=== PATIENT | female | born 1950 | race Caucasian/White ===

== ENCOUNTER → 2018-10-06 07:38 | Outpatient (CLI) | payer MEDICARE, SELFPAY ==
--- NOTE | 2018-10-06 11:02 | NEURO ---
NCS and/or EMG Patient Report Ordering Doctor: Oral Hernandez DATE OF SERVICE: 10/06/18 This is a bilateral lower extremity nerve conduction study and a right lower extremity EMG performed on this 68-year-old female with a 10-year history of numbness and tingling in her feet. She was initially diagnosed with a neuroma 10 years ago however symptoms have progressed to include her lower legs somewhat more so on the right side. She is healthy without a history of diabetes or back pain. She consumes alcohol occasionally. Bilateral lower extremity sensory motor nerve conduction studies are performed. The sural sensory distal latencies amplitudes and conduction velocities are preserved. The common peroneal motor conduction velocities are symmetrically slowed with mild prolongation of latencies and mild reduction of amplitudes. The tibial motor conduction velocities are borderline with mild reduction of amplitude and mild prolongation of distal latencies. The tibial motor and common peroneal motor F-wave latencies are mildly prolonged in the tibial H reflex responses are mildly reduced. Right lower extremity needle electromyography is performed. Muscles evaluated included the extensor digitorum brevis, abductor hallucis, medial gastrocnemius, anterior tibialis, vastus medialis and vastus lateralis muscles. Distal small muscles of the feet did demonstrate large motor units, these abnormalities resolved more proximally consistent with a length dependent pattern. No abnormal spontaneous activity was noted. Motor unit potential recruitment pattern and amplitude was otherwise normal. Impression this is an abnormal electrophysiologic study of the lower extremities consistent with mild neuropathy likely idiopathic in this setting.
--- OUTSIDE RECORDS SUMMARY | 2018-11-17 20:17 | XMS RPT_ITS ---
:1950 Author Organization OHIP Care Team Providers Name Role Phone NATHAN ALVAREZ Referring Unavailable NATHAN ALVAREZ Referring Unavailable PAMELA BLANCA (PA) Attending Unavailable NATHAN ALVAREZ Referring Unavailable CECILE LANDIS Referring Unavailable PAMELA BLANCA (PA) Referring Unavailable HASAN, CECILE Attending Unavailable HASANYAMILA Referring Unavailable HASAN CECILE Referring Unavailable SOCORRO GARLAND Referring Unavailable SOCORRO GARLAND Attending Unavailable IVETH RAMIREZ Referring Unavailable TESTRAIVETH ALAVREZ Attending Unavailable MARLENI ARCE (CHE[place]EN[place]) Referring Unavailable TESTIVETH MACIAS Attending Unavailable IVETH RAMIREZ Referring Unavailable PAMELA BLANCA (PA) Referring Unavailable PAMELA BLANCA (PA) Attending Unavailable PAMELA BLANCA (PA) Referring Unavailable TESTIVETH MACIAS Attending Unavailable TESTIVETH MACIAS Referring Unavailable TestIveth macias Attending Unavailable Nathan Alvarez Primary Care Unavailable TestIveth macias Referring Unavailable PROBLEMS PROBLEMS DATE TYPE CONDITION / CODE ATTENDING STATUS SOURCE 04/21/2017 Active Hypercalcemia / NA Active [facility] E83.52(ICD-10) [facility] [place] Repository 09/21/2018 Active 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 / [facility] Z79.899(ICD-10) [place] Repository 08/13/2018 Active Cellulitis of left toe / NA Active [facility] L03.032(ICD-10) [facility] [place] Repository 08/13/2018 Active Cutaneous abscess of NA Active [place] left foot / [facility] L02.612(ICD-10) [place] Repository 07/06/2018 Active Encounter for screening NA Active [facility] mammogram for malignant [facility] neoplasm of breast / [place] Z12.31(ICD-10) Repository 10/22/2017 Active Hyperparathyroidism, NA Active [place] unspecified / [facility] E21.3(ICD-10) [place] Repository 05/04/2018 Active Primary NA Active [facility] hyperparathyroidism / [facility] E21.0(ICD-10) [place] Repository 04/23/2018 Active Unknown / UNK(Unknown) BLANCA, Active [place] PAMELA (PA) [facility] [place] Repository 04/10/2016 Active Chronic gout, NA Active [facility] unspecified, without [facility] tophus (tophi) / [place] M1A.9XX0(ICD-10) Repository 04/10/2016 Active Mixed hyperlipidemia / NA Active [facility] E78.2(ICD-10) [facility] [place] Repository 04/10/2016 Active Essential (primary) NA Active [facility] hypertension / [facility] I10(ICD-10) [place] Repository 04/21/2015 Active Encounter for screening [facility] for malignant neoplasm Clinic Main of colon / [place] Z12.11(ICD-10) Repository PROCEDURES PROCEDURES No Procedure Records FoundRESULTS RESULTS PROGRESS Observed: 10/15/2018 Status: COMPLETED Source: [place] 8:10 PM [facility] REPOSITORY HNO ID: [id number] Author: Iveth Ramirez Service: (none) Author Type: Physician Type: Progress Notes Filed: 10/15/2018 8:15 PM Note Text: Follow up podiatric office visit for: Chief Complaint: This 68 year old who presents for follow up:numbness of b/l lower extremity. Patient continues to complain of numbness but denies pain. She has emg to review. She does have discoloration of left 3rd toenail but there is no pain. Patient has no other complaints. PAIN EVALUATION 10/15/2018 Pain Score: 3 Pain Location: Other: See Comment both feet Description: Tingling;Numbness Duration Amount of Time: 1 Duration Units: Years Frequency: Continuous Intervention: Other: See comment none No results found for: HBA1C PCP: Nathan Alvarez MD PAST MEDICAL HISTORY Diagnosis Date - Eczema 10/28/2014 - Endometrial cancer (HCC) 02/20/2010 Dx 2006 - Gout hx of - Hyperlipidaemia 04/21/2015 - Hypertension 05/22/2005 - Hypothyroidism - Obesity, unspecified 05/22/2005 - Rosacea 05/17/2010 Current Outpatient Prescriptions: lisinopril (ZESTRIL, PRINIVIL) 20 mg tablet Take 1 tablet by mouth once daily. allopurinol (ZYLOPRIM) 300 mg tablet Take 1 tablet by mouth once daily. ranitidine (ZANTAC) 150 mg tablet Take 1 tablet by mouth twice daily. omega-3 fatty acids 1,000 mg cap Take 2 capsules by mouth twice daily. ketoconazole (NIZORAL) 2 % shampoo Apply to affected area once daily as needed. Azelaic Acid (FINACEA) 15 % gel Apply to affected area. hydrocortisone 2.5 % cream Apply 1 application to affected area twice daily. Apply to areas weekly as needed. mometasone (ELOCON) 0.1 % cream Apply to areas twice a day. On for 4 days and off for 3 days. Repeat as needed. Calcium Carbonate-Mag Hydroxid (ROLAIDS) 550-110 mg Chew Take 1 tablet by mouth as needed. Multivitamin ORAL Tab Take one(1) tablet daily. Calcium Carbonate-Vitamin D2 (CALCIUM + D) 600-200 mg-unit ORAL Tab taking 5 per week acetaminophen (TYLENOL EXTRA STRENGTH) 500 mg ORAL Tab Take two(2) tablets every six(6) hours as needed for pain. No current facility-administered medications for this visit. ALLERGIES Allergen Reactions - Flagyl [Metronidazo* Rash Pt tolerates topical. Refer to phone note on 03-12-07. PAST SURGICAL HISTORY Procedure Laterality Date - APPENDECTOMY AGE 6 - DELIVERY ONLY 1982, 1984 , low transverse x 2 - COLONOSCOP W/ OR W/O [facility] SPEC 12/01/2009 Colonoscopy, recheck 10 yrs - PAST SURGICAL HISTORY OF * 2 - TOTAL ABDOM HYSTERECTOMY 2006 BSO - US PERC CHOLECYSTOSTOMY 1995 Physical Exam: Constitutional: Pt is a well developed 68 year old female who is alert, oriented, cooperative and in no apparent distress. OBJECTIVE: NVSI unchanged from previous visit. -tinel to b/l feet Dermatological: Left 3rd toenail is discolored. Webspaces clean and dry 1-4 b/l. Skin appears well hydrated and supple. good color, texture, turgor. No open lesions present. No callosities present. Musculoskeletal/Orthopaedic: Patient has no pain to palpation of b/l feet Plantarflexion, dorsiflexion, inversion and eversion is 5/5 ASSESSMENT: (R20.0) Numbness (primary encounter diagnosis) (G62.9) Neuropathy ([facility]) (B35.1) Onychomycosis PLAN: 1. History and physical examination completed today. 2. Discussed emg. Patient has neuropathy of idiopathic etiology. She has no pain. Discussed options not limited to topical creams, oral medication, or surgical decompression of nerves. Patient has no pain so she has elected to monitor. If pain develops, she will contact to discuss options in greater detail. 3. Discussed discoloration of left 3rd toenail. This is only a few months onset. Discussed monitoring vs biopsy. Patient has elected to monitor. 4. F/u prn. Iveth Ramirez DPM PROGRESS Observed: 10/15/2018 Status: COMPLETED Source: [place] 2:57 PM [facility] REPOSITORY HNO ID: [id number] Author: Jonna Santiago Service: (none) Author Type: (none) Type: Progress Notes Filed: 10/15/2018 8:15 PM Note Text: AMB ROOMING INTAKE FLOWSHEET DATA Risk Screening Do you have concerns about personal safety or safety in the home?: No Pain Pain Score: 3/10 Pain Location: Other: See Comment (both feet) Description: Tingling, Numbness Duration Amount of Time: 1 Duration Units: Years Frequency: Continuous Intervention: Other: See comment (none) Patient presents to discuss options for neuropathy. Jonna Santiago CNOV Observed: 10/15/2018 Status: COMPLETED Source: [place] 2:55 PM [facility] REPOSITORY Office Visit (PODIWS) MARNI ACOSTA ([id number]) 1950 F Date Time Provider Department 10/15/18 2:55 PM IVETH RAMIREZ During your visit today, we recorded the following information about you: Jonna Santiago 10/15/2018 8:15 PM Signed AMB ROOMING INTAKE FLOWSHEET DATA Risk Screening Do you have concerns about personal safety or safety in the home?: No Pain Pain Score: 3/10 Pain Location: Other: See Comment (both feet) Description: Tingling, Numbness Duration Amount of Time: 1 Duration Units: Years Frequency: Continuous Intervention: Other: See comment (none) Patient presents to discuss options for neuropathy. Jonna Ramirez DPM 10/15/2018 8:15 PM Signed Follow up podiatric office visit for: Chief Complaint: This 68 year old who presents for follow up:numbness of b/l lower extremity. Patient continues to complain of numbness but denies pain. She has emg to review. She does have discoloration of left 3rd toenail but there is no pain. Patient has no other complaints. PAIN EVALUATION 10/15/2018 Pain Score: 3 Pain Location: Other: See Comment both feet Description: Tingling;Numbness Duration Amount of Time: 1 Duration Units: Years Frequency: Continuous Intervention: Other: See comment none No results found for: HBA1C PCP: Nathan Alvarez MD PAST MEDICAL HISTORY Diagnosis Date - Eczema 10/28/2014 - Endometrial cancer (HCC) 02/20/2010 Dx 2006 - Gout hx of - Hyperlipidaemia 04/21/2015 - Hypertension 05/22/2005 - Hypothyroidism - Obesity, unspecified 05/22/2005 - Rosacea 05/17/2010 Current Outpatient Prescriptions: lisinopril (ZESTRIL, PRINIVIL) 20 mg tablet Take 1 tablet by mouth once daily. allopurinol (ZYLOPRIM) 300 mg tablet Take 1 tablet by mouth once daily. ranitidine (ZANTAC) 150 mg tablet Take 1 tablet by mouth twice daily. omega-3 fatty acids 1,000 mg cap Take 2 capsules by mouth twice daily. ketoconazole (NIZORAL) 2 % shampoo Apply to affected area once daily as needed. Azelaic Acid (FINACEA) 15 % gel Apply to affected area. hydrocortisone 2.5 % cream Apply 1 application to affected area twice daily. Apply to areas weekly as needed. mometasone (ELOCON) 0.1 % cream Apply to areas twice a day. On for 4 days and off for 3 days. Repeat as needed. Calcium Carbonate-Mag Hydroxid (ROLAIDS) 550-110 mg Chew Take 1 tablet by mouth as needed. Multivitamin ORAL Tab Take one(1) tablet daily. Calcium Carbonate-Vitamin D2 (CALCIUM + D) 600-200 mg-unit ORAL Tab taking 5 per week acetaminophen (TYLENOL EXTRA STRENGTH) 500 mg ORAL Tab Take two(2) tablets every six(6) hours as needed for pain. No current facility-administered medications for this visit. ALLERGIES Allergen Reactions - Flagyl [Metronidazo* Rash Pt tolerates topical. Refer to phone note on 03-12-07. PAST SURGICAL HISTORY Procedure Laterality Date - APPENDECTOMY AGE 6 - DELIVERY ONLY 1982, 1984 , low transverse x 2 - COLONOSCOP W/ OR W/O [facility] SPEC 12/01/2009 Colonoscopy, recheck 10 yrs - PAST SURGICAL HISTORY OF * 2 - TOTAL ABDOM HYSTERECTOMY 2006 BSO - US PERC CHOLECYSTOSTOMY 1995 Physical Exam: Constitutional: Pt is a well developed 68 year old female who is alert, oriented, cooperative and in no apparent distress. OBJECTIVE: NVSI unchanged from previous visit. -tinel to b/l feet Dermatological: Left 3rd toenail is discolored. Webspaces clean and dry 1-4 b/l. Skin appears well hydrated and supple. good color, texture, turgor. No open lesions present. No callosities present. Musculoskeletal/Orthopaedic: Patient has no pain to palpation of b/l feet Plantarflexion, dorsiflexion, inversion and eversion is 5/5 ASSESSMENT: (R20.0) Numbness (primary encounter diagnosis) (G62.9) Neuropathy ([facility]) (B35.1) Onychomycosis PLAN: 1. History and physical examination completed today. 2. Discussed emg. Patient has neuropathy of idiopathic etiology. She has no pain. Discussed options not limited to topical creams, oral medication, or surgical decompression of nerves. Patient has no pain so she has elected to monitor. If pain develops, she will contact to discuss options in greater detail. 3. Discussed discoloration of left 3rd toenail. This is only a few months onset. Discussed monitoring vs biopsy. Patient has elected to monitor. 4. F/u prn. Iveth Ramirez DPM Referring Provider: IVETH RAMIREZ [[id number]] Allergies As of Date: 10/15/2018 Noted Allergy Reaction FLAGYL (METRONIDAZOLE HCL) 05/22/2005 2 - Rash Comments: Pt tolerates topical. Refer to phone note on 03-12-07. Date Reviewed: 10/15/2018 Reviewed by: Jonna Santiago - Fully Assessed Reason for Visit: Neuropathy [1405] Cmt: both feet Primary Visit Diagnosis:Numbness [R20.0] Other Visit Diagnoses:Neuropathy (HCC) [G62.9] Onychomycosis [B35.1] Prescriptions as of 10/15/2018 Sig: LISINOPRIL 20 MG TABLET Take 1 tablet by mouth once d* ALLOPURINOL 300 MG TABLET Take 1 tablet by mouth once d* RANITIDINE 150 MG TABLET Take 1 tablet by mouth twice * OMEGA-3 FATTY ACIDS 1,000 MG * Take 2 capsules by mouth twic* KETOCONAZOLE 2 % SHAMPOO Apply to affected area once * AZELAIC ACID 15 % TOPICAL GEL Apply to affected area. HYDROCORTISONE 2.5 % TOPICAL * Apply 1 application to affect* MOMETASONE 0.1 % TOPICAL CREAM Apply to areas twice a day. * CALCIUM CARBONATE 550 MG-MAGN* Take 1 tablet by mouth as nee* * MULTIVITAMIN TABLET Take one(1) tablet daily. * CALCIUM + D 600 MG (1,500 MG)* taking 5 per week * TYLENOL EXTRA STRENGTH 500 MG* Take two(2) tablets every six* Problem List As Of Date 10/15/2018 Noted Resolved Malignant Neoplasm of Corpus Uteri, except Isth* 02/20/2010 More... History of endometrial cancer [Z85.42] INVALID FOR* More... Rosacea [L71.9] INVALID FOR* Well adult exam [Z00.00] INVALID FOR* More... Eczema [L30.9] INVALID FOR* Routine gynecological examination [Z01.419] INVALID FOR* More... 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 Hypercalcemia [E83.52] INVALID FOR* Osteopenia [M85.80] INVALID FOR* Medicare annual wellness visit, subsequent [Z00*INVALID FOR* More... Class 2 obesity due to excess calories without *INVALID FOR* Arthritis of both knees [M17.0] INVALID FOR* More... Encounter Status:Closed by IVETH RAMIREZ DPM on 10/15/18 NCS AND/OR EMG Observed: 10/07/2018 Status: F Source: [place] PATIENT 4:38 PM [facility] [facility] Pulmonary Services/Neurology [address] [place] [address] MR#: [id number] Acct: [id number] Name: MARNI ACOSTA Rep #: [id number] : 1950 68 From: Porfirio Newberry MD Referring Dr: KAREEN Ramirez Matthew Status: REG CLI Ordering Dr: Date: Location: [facility] Sex: F C NCS and/or EMG Patient Report Ordering Doctor: Iveth Ramirez DATE OF SERVICE: 10/06/18 This is a bilateral lower extremity nerve conduction study and a right lower extremity EMG performed on this 68-year-old female with a 10-year history of numbness and tingling in her feet. She was initially diagnosed with a neuroma 10 years ago however symptoms have progressed to include her lower legs somewhat more so on the right side. She is healthy without a history of diabetes or back pain. She consumes alcohol occasionally. Bilateral lower extremity sensory motor nerve conduction studies are performed. The sural sensory distal latencies amplitudes and conduction velocities are preserved. The common peroneal motor conduction velocities are symmetrically slowed with mild prolongation of latencies and mild reduction of amplitudes. The tibial motor conduction velocities are borderline with mild reduction of amplitude and mild prolongation of distal latencies. The tibial motor and common peroneal motor F-wave latencies are mildly prolonged in the tibial H reflex responses are mildly reduced. Right lower extremity needle electromyography is performed. Muscles evaluated included the extensor digitorum brevis, abductor hallucis, medial gastrocnemius, anterior tibialis, vastus medialis and vastus lateralis muscles. Distal small muscles of the feet did demonstrate large motor units, these abnormalities resolved more proximally consistent with a length dependent pattern. No abnormal spontaneous activity was noted. Motor unit potential recruitment pattern and amplitude was otherwise normal. Impression this is an abnormal electrophysiologic study of the lower extremities consistent with mild neuropathy likely idiopathic in this setting. 10/07/18 0623 <Electronically signed by Porfirio Newberry MD> Date Porfirio Newberry MD CC: KAREEN Ramirez; Nathan Alvarez MD; Porfirio Newberry MD Date Dictated: 10/06/181101 Date Transcribed: 10/06/181101 Statement Processor: NF Signed PROGRESS Observed: 09/24/2018 Status: COMPLETED Source: [place] 10:30 AM [facility] MAIN CAMPUS REPOSITORY O ID: [id number] Author: Shy Blanca Service: (none) Author Type: Physician Supervisor Word Processing Type: Progress Notes Filed: 09/24/2018 11:32 AM Note Text: Medicare Yearly Visit Medical B eligibilty date 07/11/15 Date of last exam na PAST MEDICAL HISTORY Diagnosis Date - Eczema 10/28/2014 - Endometrial cancer (HCC) 02/20/2010 Dx 2006 - Gout hx of - Hyperlipidaemia 04/21/2015 - Hypertension 05/22/2005 - Hypothyroidism - Obesity, unspecified 05/22/2005 - Rosacea 05/17/2010 PAST SURGICAL HISTORY Procedure Laterality Date - APPENDECTOMY AGE 6 - DELIVERY ONLY 1982, 1984 , low transverse x 2 - COLONOSCOP W/ OR W/O [facility] SPEC 12/01/2009 Colonoscopy, recheck 10 yrs - PAST SURGICAL HISTORY OF * 2 - TOTAL ABDOM HYSTERECTOMY 2006 BSO - US PERC CHOLECYSTOSTOMY 1995 Flagyl [Metronidazole Hcl] Medications reviewed: Yes FAMILY HISTORY Problem Relation Age of Onset - Diabetes Mother - other (dementia) Mother - Heart Father - Ischemic Heart Disease Father - Cancer Paternal Grandmother BREAST - Heart Paternal Grandfather PACEMAKER SOCIAL HISTORY: Social History Marital status: Spouse name: Cheng Years of education: Number of children: 2 Occupational History Occupation Employer Comment [employer] Social History Main Topics Smoking status: Former Smoker Packs/day: 0.00 Years: 0.00 Smokeless tobacco: Never Used Comment: quit 30 years ago Alcohol use: Yes 1.5 oz/week Glasses of Wine (5oz): 1 per week Comment: 2-3 times a week Drug use: No Sexual activity: Yes Partners with: Male Marni gets minimal exercise. She watches her diet for sodium, low fat and low cholesterol some of the time. List of current specialists seen: Dr. David Watts- Derm Eye doctor- INTERNET ASSESSOR- Dr. Cristina Landis- Endocrinology End of Live Planning discussed including patients advanced directive wishes: Yes I am willing to follow Marni's advanced directives. Depression screen She in the past two weeks denies having felt down, depressed, hopeless or with little interest or pleasure in doing things. Functional Ability/Safety Screen 1. Was the patient's timed Up and Go test unsteady or longer than 30 seconds? No 2. Does the patient need help with the phone, transportation, shopping,preparing meals, housework, laundry, medications or managing money? No 3. Does your home have rugs in the hallway, lack of grab bars in the bathroom (Y), lack of handrails on the stairs or have poor lighting? No Hearing Evaluation: normal PHYSICAL EXAM BP 142/82 (BP Site: Left Arm, BP Position: Sitting, BP Cuff Size: Large Adult) Pulse 76 Resp 12 Ht 164.4 cm (5' 4.74) Wt 95.3 kg (210 lb) LMP 06/02/2006 BMI 35.23 kg/m? Alert and oriented X 3: YES Body mass index is 35.23 kg/m?. ASSESSMENT/PLAN: 68 year old female The following prevention plan was discussed during the office visit and provided to the patient: - Weight Loss PAMELA BLANCA PA-C Chief Complaint Patient presents with: Physical HPI Marni Acosta is a 68 year old female who presents here today for extensive exam. Patient overall is doing well Hx of HTN and high cholesterol- see labs below She has not been doing as well with watching her cholesterol in her diet. She has not been exercising. R upper arm pain that comes and goes dorothy with certain movements since doing yardwork a few months ago. Denies n/t or significant weakness Past medical history, appointments, medications, allergies reviewed. Previous Medical History PAST MEDICAL HISTORY Diagnosis Date - Eczema 10/28/2014 - Endometrial cancer (HCC) 02/20/2010 Dx 2006 - Gout hx of - Hyperlipidaemia 04/21/2015 - Hypertension 05/22/2005 - Hypothyroidism - Obesity, unspecified 05/22/2005 - Rosacea 05/17/2010 Previous Surgical History PAST SURGICAL HISTORY Procedure Laterality Date - APPENDECTOMY AGE 6 - DELIVERY ONLY 1982, 1984 , low transverse x 2 - COLONOSCOP W/ OR W/O [facility] SPEC 12/01/2009 Colonoscopy, recheck 10 yrs - PAST SURGICAL HISTORY OF * 2 - TOTAL ABDOM HYSTERECTOMY 2006 BSO - US PERC CHOLECYSTOSTOMY 1995 Family History FAMILY HISTORY Problem Relation Age of Onset - Diabetes Mother - other (dementia) Mother - Heart Father - Ischemic Heart Disease Father - Cancer Paternal Grandmother BREAST - Heart Paternal Grandfather PACEMAKER Patient Allergies ALLERGIES Allergen Reactions - Flagyl [Metronidazo* Rash Pt tolerates topical. Refer to phone note on 03-12-07. Current Medications Current Outpatient Prescriptions on File Prior to Visit: lisinopril (ZESTRIL, PRINIVIL) 20 mg tablet Take 1 tablet by mouth once daily. allopurinol (ZYLOPRIM) 300 mg tablet Take 1 tablet by mouth once daily. ranitidine (ZANTAC) 150 mg tablet Take 1 tablet by mouth twice daily. omega-3 fatty acids 1,000 mg cap Take 2 capsules by mouth twice daily. ketoconazole (NIZORAL) 2 % shampoo Apply to affected area once daily as needed. Azelaic Acid (FINACEA) 15 % gel Apply to affected area. hydrocortisone 2.5 % cream Apply 1 application to affected area twice daily. Apply to areas weekly as needed. Calcium Carbonate-Mag Hydroxid (ROLAIDS) 550-110 mg Chew Take 1 tablet by mouth as needed. Multivitamin ORAL Tab Take one(1) tablet daily. Calcium Carbonate-Vitamin D2 (CALCIUM + D) 600-200 mg-unit ORAL Tab taking 5 per week acetaminophen (TYLENOL EXTRA STRENGTH) 500 mg ORAL Tab Take two(2) tablets every six(6) hours as needed for pain. mometasone (ELOCON) 0.1 % cream Apply to areas twice a day. On for 4 days and off for 3 days. Repeat as needed. No current facility-administered medications on file prior to visit. Social History Social History Marital status: Spouse name: Cheng Years of education: Number of children: 2 Occupational History Occupation Employer Comment [employer]* [employer] Social History Main Topics Smoking status: Former Smoker Packs/day: 0.00 Years: 0.00 Smokeless tobacco: Never Used Comment: quit 30 years ago Alcohol use: Yes 1.5 oz/week Glasses of Wine (5oz): 1 per week Comment: 2-3 times a week Drug use: No Sexual activity: Yes Partners with: Male Review of Symptoms REVIEW OF SYSTEMS GENERAL: No weight loss, malaise or fevers HEENT: Negative for frequent or significant headaches, No changes in hearing or vision, no nose bleeds or other nasal problems NECK: Negative for lumps, goiter, pain and significant neck swelling RESPIRATORY: Negative for cough, hemoptysis, wheezing, COPD, dyspnea or shortness of breath CARDIOVASCULAR: Negative for chest pain, leg swelling, hypertension, CHF or palpitations GI: No nausea, vomiting, or diarrhea : No history of dysuria, frequency or incontinence MUSCULOSKELETAL: + R arm pain with certain movements. Negative for joint pain or swelling, back pain or muscle pain SKIN: Negative for lesions, rash, and itching PSYCH: Negative for sleep disturbance, mood disorder and recent psychosocial stressors HEMATOLOGY/LYMPHOLOGY: Negative for prolonged bleeding, bruising easily or swollen nodes ENDOCRINE: Negative for cold or heat intolerance, polyuria, polydipsia and goiter NEURO: No history of headaches, syncope, paralysis, seizures or tremors EXAM: BP 142/82 (BP Site: Left Arm, BP Position: Sitting, BP Cuff Size: Large Adult) Pulse 76 Resp 12 Ht 164.4 cm (5' 4.74) Wt 95.3 kg (210 lb) LMP 06/02/2006 BMI 35.23 kg/m? BP 128/74 Pulse 70 Resp 12 Ht 164.4 cm (5' 4.74) Wt 95.3 kg (210 lb) LMP 06/02/2006 BMI 35.23 kg/m? Last 4 Encounter BP Readings: Date: BP: 09/24/2018 142/82 08/13/2018 136/84 08/05/2018 152/80 06/01/2018 134/86 Last 4 Encounter Wt Readings: Date: Wt: 09/24/2018 95.3 kg (210 lb) 08/13/2018 94.8 kg (209 lb) 08/05/2018 95.7 kg (211 lb) 06/01/2018 96.6 kg (213 lb) General Appearance: Well appearing, alert, in no acute distress, well-hydrated, well nourished.. Skin: Not examined, saw Derm yesterday for skin check. Head: Normocephalic, no masses, lesions, tenderness or abnormalities. Eyes: Anicteric sclera. Pupils are equally round and reactive to light. Extraocular movements are intact. . Ears: External ears normal, canals clear. Nose/Sinuses: Nares normal, septum midline, mucosa normal, no drainage or sinus tenderness. Oropharynx: Lips, mucosa, and tongue normal, teeth and gums normal, oropharynx normal. Neck: Supple, no adenopathy; thyroid symmetric, normal size, no bruits. Lungs: lungs clear to auscultation. No wheezing, rhonchi, rales. Heart: RRR without murmur, gallop, or rubs. No ectopy. Abdomen: Normal abdominal exam, Abdomen soft, non-tender. Bowel sounds normal. No masses, organomegaly. Extremities: No deformities, edema, skin discoloration, clubbing or cyanosis. Good capillary refill. . Musculoskeletal: No joint swelling, deformity, or tenderness. R shoulder exam wnl. NVI Peripheral Pulses: Normal. Neurologic: Gait normal. Reflexes normal and symmetric. Sensation grossly intact.. Health Maintenance List BP CONTROLLED (<130/80) due on 1968 ANNUAL PCP TEAM CHRONIC DISEASE VISIT due on 04/23/2019 MAMMOGRAM due on 07/06/2019 COLORECTAL CANCER SCREENING,SEE MODIFIER due on 12/01/2019 DTAP,TDAP,TD(2 - Td) due on 05/17/2020 PAP EVERY 3 YEARS (65-80 YEARS OLD) due on 08/05/2021 DIABETES SCREEN due on 09/21/2021 LIPID SCREEN due on 09/21/2023 BONE DENSITY Completed ADULT PREVNAR-13 Completed INFLUENZA Completed HEPATITIS C SCREENING Completed PNEUMOVAX AGE 65 AND OVER WITH 5YR LOOKBACK Completed Data reviewed Component Latest Ref Rng AND Units 09/21/2018 Protein, Total 6.3 - 8.0 g/dL 7.7 Albumin 3.9 - 4.9 g/dL 4.6 Calcium 8.5 - 10.2 mg/dL 11.2 (H) Bilirubin, Total 0.2 - 1.3 mg/dL 0.4 Alkaline Phosphatase 34 - 123 U/L 121 AST 13 - 35 U/L 27 Glucose 74 - 99 mg/dL 97 BUN 7 - 21 mg/dL 17 Creatinine 0.58 - 0.96 mg/dL 0.97 (H) Sodium 136 - 144 mmol/L 138 Potassium 3.7 - 5.1 mmol/L 4.6 Chloride 97 - 105 mmol/L 99 CO2 22 - 30 mmol/L 24 Anion Gap 9 - 18 mmol/L 15 ALT 7 - 38 U/L 25 eGFR- >60 eGFR-All Other Races . 57 Color Yellow Yellow Clarity Clear Clear Glucose, Urine Negative mg/dL Negative Bilirubin, Urine Negative Negative Ketones, Urine Negative Negative Specific [place], Ur 1.005 - 1.030 1.014 Hemoglobin/Blood,Ur Negative Negative pH, Urine 4.5 - 8.0 6.0 Protein, Urine Negative mg/dL 30 (A) Urobilinogen Normal Normal Nitrites Negative Negative Leukest Negative Negative Comments SEE COMMENT Urine Michael Comment SEE COMMENT WBC, Urine 0 - 5 /HPF 0-5 RBC, Urine 0 - 3 /HPF 0-3 Epithelial Cells /HPF SEE COMMENT Cholesterol, Total <200 mg/dL 246 (H) Triglyceride <150 mg/dL 153 (H) HDL Cholesterol >39 mg/dL 78 LDL Cholesterol <100 mg/dL 137 (H) Non HDL Cholesterol <130 mg/dL 168 (H) Fasting Time hrs 13 VLDL Cholesterol <30 mg/dL 31 (H) TC:HDL Ratio <5.10 3.15 LDL:HDL Ratio <2.54 1.76 TSH 0.400 - 5.500 uU/mL 1.970 ASSESSMENT/PLAN: 1. Medicare annual wellness visit, subsequent - ICD9: V70.0, ICD10: Z00.00 (primary diagnosis) - Encouraged monthly Breast Self Exam 2. Essential hypertension with goal blood pressure less than 140/90 - ICD9: 401.9, ICD10: I10 - good control - Continue current medication(s) - Recommended regular aerobic exercise. - Recommend home blood pressure monitoring, to bring results in on next visit - Goal of BP <130/80 - COMP METABOLIC PANEL - URINALYSIS WITH MICROSCOPIC 3. Mixed hyperlipidemia - ICD9: 272.2, ICD10: E78.2 - poor control - Encouraged following a low fat, low cholesterol diet. - Discussed the benefits of regular aerobic exercise and weight loss. - Encouraged following a low carbohydrate, healthy oil intake diet. - LIPID PANEL BASIC 4. GERD without esophagitis - ICD9: 530.81, ICD10: K21.9 - Stable with prn use of zantac 5. Hyperparathyroidism (HCC) - ICD9: 252.00, ICD10: E21.3 Continue with Endo - COMP METABOLIC PANEL 6. Class 2 obesity due to excess calories without serious comorbidity with body mass index (BMI) of 37.0 to 37.9 in adult - ICD9: 278.00, V85.37, ICD10: E66.09, Z68.37 Discussed increasing exercise and watching cholesterol in diet. - COMP METABOLIC PANEL 6month follow up with recheck of labs prior. Can return sooner as needed. Discussed possible red flags and when to seek medical attention. Time with patient face to face was 10 min for medicare PE and 30min for extensive exam. PAMELA BLANCA PA-C CNOV Observed: 09/24/2018 Status: COMPLETED Source: [place] 10:20 AM [facility] REPOSITORY Office Visit (FAMPWS) MARNI ACOSTA ([id number]) 1950 F Date Time Provider Department 09/24/18 10:20 AM SANDIP BLANCA) FAMPWS During your visit today, we recorded the following information about you: Pulse Respiration Blood pressure Weight 70/minute 12/minute 128/74 95.3 kg Height 1.644 m PAMELA BLANCA PA-C 09/24/2018 11:32 AM Signed Medicare Yearly Visit Medical B eligibilty date 07/11/15 Date of last exam na PAST MEDICAL HISTORY Diagnosis Date - Eczema 10/28/2014 - Endometrial cancer (HCC) 02/20/2010 Dx 2006 - Gout hx of - Hyperlipidaemia 04/21/2015 - Hypertension 05/22/2005 - Hypothyroidism - Obesity, unspecified 05/22/2005 - Rosacea 05/17/2010 PAST SURGICAL HISTORY Procedure Laterality Date - APPENDECTOMY AGE 6 - DELIVERY ONLY 1982, 1984 , low transverse x 2 - COLONOSCOP W/ OR W/O [facility] SPEC 12/01/2009 Colonoscopy, recheck 10 yrs - PAST SURGICAL HISTORY OF * 2 - TOTAL ABDOM HYSTERECTOMY 2006 BSO - US PERC CHOLECYSTOSTOMY 1995 Flagyl [Metronidazole Hcl] Medications reviewed: Yes FAMILY HISTORY Problem Relation Age of Onset - Diabetes Mother - other (dementia) Mother - Heart Father - Ischemic Heart Disease Father - Cancer Paternal Grandmother BREAST - Heart Paternal Grandfather PACEMAKER SOCIAL HISTORY: Social History Marital status: Spouse name: Cheng Years of education: Number of children: 2 Occupational History Occupation Employer Comment [employer] Social History Main Topics Smoking status: Former Smoker Packs/day: 0.00 Years: 0.00 Smokeless tobacco: Never Used Comment: quit 30 years ago Alcohol use: Yes 1.5 oz/week Glasses of Wine (5oz): 1 per week Comment: 2-3 times a week Drug use: No Sexual activity: Yes Partners with: Male Marni gets minimal exercise. She watches her diet for sodium, low fat and low cholesterol some of the time. List of current specialists seen: Dr. David Watts- Derm Eye doctor- INTERNET ASSESSOR- Dr. Cristina Landis- Endocrinology End of Live Planning discussed including patients advanced directive wishes: Yes I am willing to follow Marni's advanced directives. Depression screen She in the past two weeks denies having felt down, depressed, hopeless or with little interest or pleasure in doing things. Functional Ability/Safety Screen 1. Was the patient's timed Up and Go test unsteady or longer than 30 seconds? No 2. Does the patient need help with the phone, transportation, shopping,preparing meals, housework, laundry, medications or managing money? No 3. Does your home have rugs in the hallway, lack of grab bars in the bathroom (Y), lack of handrails on the stairs or have poor lighting? No Hearing Evaluation: normal PHYSICAL EXAM BP 142/82 (BP Site: Left Arm, BP Position: Sitting, BP Cuff Size: Large Adult) Pulse 76 Resp 12 Ht 164.4 cm (5' 4.74) Wt 95.3 kg (210 lb) LMP 06/02/2006 BMI 35.23 kg/m? Alert and oriented X 3: YES Body mass index is 35.23 kg/m?. ASSESSMENT/PLAN: 68 year old female The following prevention plan was discussed during the office visit and provided to the patient: - Weight Loss PAMELA BLANAC PA-C Chief Complaint Patient presents with: Physical HPI Marni Acosta is a 68 year old female who presents here today for extensive exam. Patient overall is doing well Hx of HTN and high cholesterol- see labs below She has not been doing as well with watching her cholesterol in her diet. She has not been exercising. R upper arm pain that comes and goes dorothy with certain movements since doing yardwork a few months ago. Denies n/t or significant weakness Past medical history, appointments, medications, allergies reviewed. Previous Medical History PAST MEDICAL HISTORY Diagnosis Date - Eczema 10/28/2014 - Endometrial cancer (HCC) 02/20/2010 Dx 2006 - Gout hx of - Hyperlipidaemia 04/21/2015 - Hypertension 05/22/2005 - Hypothyroidism - Obesity, unspecified 05/22/2005 - Rosacea 05/17/2010 Previous Surgical History PAST SURGICAL HISTORY Procedure Laterality Date - APPENDECTOMY AGE 6 - DELIVERY ONLY 1982, 1984 , low transverse x 2 - COLONOSCOP W/ OR W/O [facility] SPEC 12/01/2009 Colonoscopy, recheck 10 yrs - PAST SURGICAL HISTORY OF * 2 - TOTAL ABDOM HYSTERECTOMY 2006 BSO - US PERC CHOLECYSTOSTOMY 1995 Family History FAMILY HISTORY Problem Relation Age of Onset - Diabetes Mother - other (dementia) Mother - Heart Father - Ischemic Heart Disease Father - Cancer Paternal Grandmother BREAST - Heart Paternal Grandfather PACEMAKER Patient Allergies ALLERGIES Allergen Reactions - Flagyl [Metronidazo* Rash Pt tolerates topical. Refer to phone note on 03-12-07. Current Medications Current Outpatient Prescriptions on File Prior to Visit: lisinopril (ZESTRIL, PRINIVIL) 20 mg tablet Take 1 tablet by mouth once daily. allopurinol (ZYLOPRIM) 300 mg tablet Take 1 tablet by mouth once daily. ranitidine (ZANTAC) 150 mg tablet Take 1 tablet by mouth twice daily. omega-3 fatty acids 1,000 mg cap Take 2 capsules by mouth twice daily. ketoconazole (NIZORAL) 2 % shampoo Apply to affected area once daily as needed. Azelaic Acid (FINACEA) 15 % gel Apply to affected area. hydrocortisone 2.5 % cream Apply 1 application to affected area twice daily. Apply to areas weekly as needed. Calcium Carbonate-Mag Hydroxid (ROLAIDS) 550-110 mg Chew Take 1 tablet by mouth as needed. Multivitamin ORAL Tab Take one(1) tablet daily. Calcium Carbonate-Vitamin D2 (CALCIUM + D) 600-200 mg-unit ORAL Tab taking 5 per week acetaminophen (TYLENOL EXTRA STRENGTH) 500 mg ORAL Tab Take two(2) tablets every six(6) hours as needed for pain. mometasone (ELOCON) 0.1 % cream Apply to areas twice a day. On for 4 days and off for 3 days. Repeat as needed. No current facility-administered medications on file prior to visit. Social History Social History Marital status: Spouse name: Cheng Years of education: Number of children: 2 Occupational History Occupation Employer Comment [employer] M* [employer] Social History Main Topics Smoking status: Former Smoker Packs/day: 0.00 Years: 0.00 Smokeless tobacco: Never Used Comment: quit 30 years ago Alcohol use: Yes 1.5 oz/week Glasses of Wine (5oz): 1 per week Comment: 2-3 times a week Drug use: No Sexual activity: Yes Partners with: Male Review of Symptoms REVIEW OF SYSTEMS GENERAL: No weight loss, malaise or fevers HEENT: Negative for frequent or significant headaches, No changes in hearing or vision, no nose bleeds or other nasal problems NECK: Negative for lumps, goiter, pain and significant neck swelling RESPIRATORY: Negative for cough, hemoptysis, wheezing, COPD, dyspnea or shortness of breath CARDIOVASCULAR: Negative for chest pain, leg swelling, hypertension, CHF or palpitations GI: No nausea, vomiting, or diarrhea : No history of dysuria, frequency or incontinence MUSCULOSKELETAL: + R arm pain with certain movements. Negative for joint pain or swelling, back pain or muscle pain SKIN: Negative for lesions, rash, and itching PSYCH: Negative for sleep disturbance, mood disorder and recent psychosocial stressors HEMATOLOGY/LYMPHOLOGY: Negative for prolonged bleeding, bruising easily or swollen nodes ENDOCRINE: Negative for cold or heat intolerance, polyuria, polydipsia and goiter NEURO: No history of headaches, syncope, paralysis, seizures or tremors EXAM: BP 142/82 (BP Site: Left Arm, BP Position: Sitting, BP Cuff Size: Large Adult) Pulse 76 Resp 12 Ht 164.4 cm (5' 4.74) Wt 95.3 kg (210 lb) LMP 06/02/2006 BMI 35.23 kg/m? BP 128/74 Pulse 70 Resp 12 Ht 164.4 cm (5' 4.74) Wt 95.3 kg (210 lb) LMP 06/02/2006 BMI 35.23 kg/m? Last 4 Encounter BP Readings: Date: BP: 09/24/2018 142/82 08/13/2018 136/84 08/05/2018 152/80 06/01/2018 134/86 Last 4 Encounter Wt Readings: Date: Wt: 09/24/2018 95.3 kg (210 lb) 08/13/2018 94.8 kg (209 lb) 08/05/2018 95.7 kg (211 lb) 06/01/2018 96.6 kg (213 lb) General Appearance: Well appearing, alert, in no acute distress, well-hydrated, well nourished.. Skin: Not examined, saw Derm yesterday for skin check. Head: Normocephalic, no masses, lesions, tenderness or abnormalities. Eyes: Anicteric sclera. Pupils are equally round and reactive to light. Extraocular movements are intact. . Ears: External ears normal, canals clear. Nose/Sinuses: Nares normal, septum midline, mucosa normal, no drainage or sinus tenderness. Oropharynx: Lips, mucosa, and tongue normal, teeth and gums normal, oropharynx normal. Neck: Supple, no adenopathy; thyroid symmetric, normal size, no bruits. Lungs: lungs clear to auscultation. No wheezing, rhonchi, rales. Heart: RRR without murmur, gallop, or rubs. No ectopy. Abdomen: Normal abdominal exam, Abdomen soft, non-tender. Bowel sounds normal. No masses, organomegaly. Extremities: No deformities, edema, skin discoloration, clubbing or cyanosis. Good capillary refill. . Musculoskeletal: No joint swelling, deformity, or tenderness. R shoulder exam wnl. NVI Peripheral Pulses: Normal. Neurologic: Gait normal. Reflexes normal and symmetric. Sensation grossly intact.. Health Maintenance List BP CONTROLLED (<130/80) due on 1968 ANNUAL PCP TEAM CHRONIC DISEASE VISIT due on 04/23/2019 MAMMOGRAM due on 07/06/2019 COLORECTAL CANCER SCREENING,SEE MODIFIER due on 12/01/2019 DTAP,TDAP,TD(2 - Td) due on 05/17/2020 PAP EVERY 3 YEARS (65-80 YEARS OLD) due on 08/05/2021 DIABETES SCREEN due on 09/21/2021 LIPID SCREEN due on 09/21/2023 BONE DENSITY Completed ADULT PREVNAR-13 Completed INFLUENZA Completed HEPATITIS C SCREENING Completed PNEUMOVAX AGE 65 AND OVER WITH 5YR LOOKBACK Completed Data reviewed Component Latest Ref Rng AND Units 09/21/2018 Protein, Total 6.3 - 8.0 g/dL 7.7 Albumin 3.9 - 4.9 g/dL 4.6 Calcium 8.5 - 10.2 mg/dL 11.2 (H) Bilirubin, Total 0.2 - 1.3 mg/dL 0.4 Alkaline Phosphatase 34 - 123 U/L 121 AST 13 - 35 U/L 27 Glucose 74 - 99 mg/dL 97 BUN 7 - 21 mg/dL 17 Creatinine 0.58 - 0.96 mg/dL 0.97 (H) Sodium 136 - 144 mmol/L 138 Potassium 3.7 - 5.1 mmol/L 4.6 Chloride 97 - 105 mmol/L 99 CO2 22 - 30 mmol/L 24 Anion Gap 9 - 18 mmol/L 15 ALT 7 - 38 U/L 25 eGFR- >60 eGFR-All Other Races . 57 Color Yellow Yellow Clarity Clear Clear Glucose, Urine Negative mg/dL Negative Bilirubin, Urine Negative Negative Ketones, Urine Negative Negative Specific [place], Ur 1.005 - 1.030 1.014 Hemoglobin/Blood,Ur Negative Negative pH, Urine 4.5 - 8.0 6.0 Protein, Urine Negative mg/dL 30 (A) Urobilinogen Normal Normal Nitrites Negative Negative Leukest Negative Negative Comments SEE COMMENT Urine Michael Comment SEE COMMENT WBC, Urine 0 - 5 /HPF 0-5 RBC, Urine 0 - 3 /HPF 0-3 Epithelial Cells /HPF SEE COMMENT Cholesterol, Total <200 mg/dL 246 (H) Triglyceride <150 mg/dL 153 (H) HDL Cholesterol >39 mg/dL 78 LDL Cholesterol <100 mg/dL 137 (H) Non HDL Cholesterol <130 mg/dL 168 (H) Fasting Time hrs 13 VLDL Cholesterol <30 mg/dL 31 (H) TC:HDL Ratio <5.10 3.15 LDL:HDL Ratio <2.54 1.76 TSH 0.400 - 5.500 uU/mL 1.970 ASSESSMENT/PLAN: 1. Medicare annual wellness visit, subsequent - ICD9: V70.0, ICD10: Z00.00 (primary diagnosis) - Encouraged monthly Breast Self Exam 2. Essential hypertension with goal blood pressure less than 140/90 - ICD9: 401.9, ICD10: I10 - good control - Continue current medication(s) - Recommended regular aerobic exercise. - Recommend home blood pressure monitoring, to bring results in on next visit - Goal of BP <130/80 - COMP METABOLIC PANEL - URINALYSIS WITH MICROSCOPIC 3. Mixed hyperlipidemia - ICD9: 272.2, ICD10: E78.2 - poor control - Encouraged following a low fat, low cholesterol diet. - Discussed the benefits of regular aerobic exercise and weight loss. - Encouraged following a low carbohydrate, healthy oil intake diet. - LIPID PANEL BASIC 4. GERD without esophagitis - ICD9: 530.81, ICD10: K21.9 - Stable with prn use of zantac 5. Hyperparathyroidism (HCC) - ICD9: 252.00, ICD10: E21.3 Continue with Endo - COMP METABOLIC PANEL 6. Class 2 obesity due to excess calories without serious comorbidity with body mass index (BMI) of 37.0 to 37.9 in adult - ICD9: 278.00, V85.37, ICD10: E66.09, Z68.37 Discussed increasing exercise and watching cholesterol in diet. - COMP METABOLIC PANEL 6month follow up with recheck of labs prior. Can return sooner as needed. Discussed possible red flags and when to seek medical attention. Time with patient face to face was 10 min for medicare PE and 30min for extensive exam. PAMELA BLANCA PA-C Referring Provider: PAMELA BLANCA(SAMSON) [[id number]] Allergies As of Date: 09/24/2018 Noted Allergy Reaction FLAGYL (METRONIDAZOLE HCL) 05/22/2005 2 - Rash Comments: Pt tolerates topical. Refer to phone note on 03-12-07. Date Reviewed: 09/24/2018 Reviewed by: Sandip) Evangelist - Fully Assessed Reason for Visit: Physical [83] Primary Visit Diagnosis:Medicare annual wellness visit, subsequent [Z00.00] Other Visit Diagnoses:Essential hypertension with goal blood pressure less than 140/90 [I10] Mixed hyperlipidemia [E78.2] GERD without esophagitis [K21.9] Hyperparathyroidism (HCC) [E21.3] Class 2 obesity due to excess calories without serious comorbidity with body mass index (BMI) of 37.0 to 37.9 in adult [E66.09, Z68.37] Order(s):LIPID PANEL BASIC [SQLIPB] Order #: [id number] FUTURE COMP METABOLIC PANEL [SQCMP] Order #: [id number] FUTURE URINALYSIS WITH MICROSCOPIC [SQUAWMIC] Order #: [id number] FUTURE Prescriptions as of 09/24/2018 Sig: LISINOPRIL 20 MG TABLET Take 1 tablet by mouth once d* ALLOPURINOL 300 MG TABLET Take 1 tablet by mouth once d* RANITIDINE 150 MG TABLET Take 1 tablet by mouth twice * OMEGA-3 FATTY ACIDS 1,000 MG * Take 2 capsules by mouth twic* KETOCONAZOLE 2 % SHAMPOO Apply to affected area once * AZELAIC ACID 15 % TOPICAL GEL Apply to affected area. HYDROCORTISONE 2.5 % TOPICAL * Apply 1 application to affect* CALCIUM CARBONATE 550 MG-MAGN* Take 1 tablet by mouth as nee* * MULTIVITAMIN TABLET Take one(1) tablet daily. * CALCIUM + D 600 MG (1,500 MG)* taking 5 per week * TYLENOL EXTRA STRENGTH 500 MG* Take two(2) tablets every six* MOMETASONE 0.1 % TOPICAL CREAM Apply to areas twice a day. * Problem List As Of Date 09/24/2018 Noted Resolved Malignant Neoplasm of Corpus Uteri, except Isth* 02/20/2010 More... History of endometrial cancer [Z85.42] INVALID FOR* Priority: C More... Rosacea [L71.9] INVALID FOR* Priority: C Well adult exam [Z00.00] INVALID FOR* Priority: D More... Eczema [L30.9] INVALID FOR* Priority: D Routine gynecological examination [Z01.419] INVALID FOR* Priority: D More... 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 Hypercalcemia [E83.52] INVALID FOR* Osteopenia [M85.80] INVALID FOR* Priority: M Medicare annual wellness visit, subsequent [Z00*INVALID FOR* Priority: E More... Class 2 obesity due to excess calories without *INVALID FOR* Priority: B Arthritis of both knees [M17.0] INVALID FOR* Priority: M More... Disposition: Return in about 6 months (around 03/24/2019) for Routine. Follow-up and Disposition History Recorded Encounter Status:Closed by PAMELA COONEY on 09/24/18 URINALYSIS WITH Collected: 09/21/2018 Status: F Source: [facility] 9:25 AM [facility] [place] REPOSITORY TYPE CODE TESTS RESULT OUT OF RANGE REFERENCE UNITS LAB UCOL Yellow Color Yellow LAB [facility] Clear Clarity Clear LAB UGLUC Negative mg/dL Glucose, Urine Negative LAB UBIL Negative Bilirubin, Urine Negative LAB UKET Negative Ketones, Urine Negative LAB USPG 1.005-1.030 Specific [place], Ur 1.014 LAB UHGB Negative Hemoglobin/Blood, Negative Ur LAB UPH 4.5-8.0 pH 6.0 LAB UPROT Negative mg/dL Protein, Abnormal Urine 30 Alert LAB UUROB Normal Urobilinogen Normal LAB UNITR Negative Nitrites Negative LAB ULKEST Negative Leukest Negative LAB UCOM Comments SEE COMMENT Result Comment: N/A LAB UMCOM Urine SEE Michael Comment COMMENT Result Comment: Interpret results with caution. Urine preservative tube not filled to the required volume. The BD Vacutainer Urinalysis preservative Plus tube must be filled with at least 7 mL and not more than 9 mL of urine in order to maintain the proper additive to urine ratio. LAB UWBC 0-5 /HPF WBC 0-5 LAB URBC 0-3 /HPF RBC 0-3 LAB UEPI /HPF Epithelial SEE Cells COMMENT Result Comment: Few Squamous Epithelial Cells Performed By: #### UAWMIC #### [facility] [address] [place], [place] [address] COMP METABOLIC PANEL Collected: 09/21/2018 Status: F Source: [place] 9:20 AM [facility] REPOSITORY TYPE CODE TESTS RESULT OUT OF REFERENCE UNITS RANGE LAB TP 6.3-8.0 g/dL Protein, Total 7.7 LAB ALB 3.9-4.9 g/dL Albumin 4.6 LAB CA 8.5-10.2 mg/dL Calcium, High Total 11.2 LAB TBIL 0.2-1.3 mg/dL Bilirubin, Total 0.4 LAB ALKP 34-123 U/L Alkaline Phosphatase 121 LAB AST 13-35 U/L AST 27 LAB GLU 74-99 mg/dL Glucose 97 Result Comment: The [place] [employer] (ADA) provides guidance for cutoff values for fasting glucose and random glucose. The ADA defines fasting as no caloric intake for at least 8 hours. Fas ting plasma glucose results between 100 to 125 mg/dL indicate increased risk for diabetes (prediabetes). Fasting plasma glucose results greater than or equal to 126 mg/dL meet the criteria for diagnosis of diabetes. In the absence of unequivocal hyperglycemia, results should be confirmed by repeat testing. In a patient with classic symptoms of hyperglycemia or hyperglycemic crisis, random plasma glucose results greater than or equal to 200 mg/dL meet the criteria for diagnosis of diabetes. Reference: Standards of Medical Care in Diabetes 2016, [place] [employer]. Diabetes Care. 2016.39(Suppl 1). LAB BUN 7-21 mg/dL BUN 17 LAB CRET 0.58-0.96 mg/dL Creatinine High 0.97 LAB NA 136-144 mmol/L Sodium 138 LAB K 3.7-5.1 mmol/L Potassium 4.6 LAB CL 97-105 mmol/L Chloride 99 LAB CO2 22-30 mmol/L CO2 24 LAB AGAP 9-18 mmol/L Anion Gap 15 LAB ALT 7-38 U/L ALT 25 LAB GFRAA eGFR- Amer. >60 LAB GFRNAA . eGFR-All Other Races 57 Result Comment: eGFR (Estimated GFR) Units of measure: mL/min/1.73 meters squared eGFR is derived from the reexpressed MDRD Study equation using the following parameters: serum creatinine, age, gender and race. The creatinine assay has been calibrated to be traceable to IDMS. An eGFR <60 mL/min/1.73m2 for >3 months is consistent with chronic kidney disease. Refer to KDOQI guidelines for clinical interpretation. In patients with unstable renal function, e.g. those with acute kidney injury, the eGFR may not accurately reflect actual GFR. Performed By: #### CMP, LIPB #### [facility] [address] [place], [place] [address] LIPID PANEL, BASIC Collected: 09/21/2018 Status: F Source: [place] 9:20 AM [facility] REPOSITORY TYPE CODE TESTS RESULT OUT OF REFERENCE UNITS RANGE LAB CHOL <200 mg/dL Cholesterol High 246 Result Comment: <200 mg/dL, Desirable 200-239 mg/dL, Borderline high >239 mg/dL, High LAB TRIGLY <150 mg/dL Triglyceride High 153 Result Comment: <150 mg/dL, Normal 150-199 mg/dL, Borderline high 200-499 mg/dL, High >499 mg/dL, Very high LAB HDL >39 mg/dL HDL-Cholesterol 78 Result Comment: 40-59 mg/dL, Acceptable >59 mg/dL, High: Negative risk factor for coronary heart disease <40 mg/dL, Low: Positive risk factor for coronary heart disease LAB LDL <100 mg/dL LDL-Cholesterol High 137 Result Comment: <100 mg/dL, Optimal 100-129 mg/dL, Near optimal/above optimal 130-159 mg/dL, Borderline high 160-189 mg/dL, High >189 mg/dL, Very high Secondary prevention optimal LDL Cholesterol levels are recommended to be < 70 mg/dL LAB NONHDL <130 mg/dL Non HDL High Cholesterol 168 Result Comment: <130 mg/dL, Optimal 130-159 mg/dL, Near optimal/above optimal 160-189 mg/dL, Borderline high 190-219 mg/dL, High >219 mg/dL, Very high Secondary prevention optimal non HDL Cholesterol levels are recommended to be < 100 mg/dL LAB FT hrs Fasting Time 13 LAB VLDL <30 mg/dL High VLDL Cholesterol 31 LAB TCHDL <5.10 TC:HDL Ratio 3.15 LAB LDLHDL <2.54 LDL:HDL Ratio 1.76 Result Comment: Reference: 1. National Cholesterol Education Program ATP III Guideline At-A-Glance Quick Desk Reference: National Heart, Lung, and Blood [place]. National Institutes of Health. 2001: NIH Publication No. 01-3305. 2. An International Atherosclerosis Society position paper: global recommendations for the management of dyslipidemia: executive summary, Atherosclerosis. 2014: 232(2):410-413. Performed By: #### CMP, LIPB #### [facility] [address], [place] [address] TSH Collected: 09/21/2018 Status: F Source: [place] 9:20 AM [facility] REPOSITORY TYPE CODE TESTS RESULT OUT OF RANGE REFERENCE UNITS LAB TSH 0.400-5.500 uU/mL TSH 1.970 Performed By: #### TSH #### [facility] [address], [place] [address] CNPTOUTREACH Observed: 09/08/2018 Status: COMPLETED Source: [place] 12:00 AM [facility] REPOSITORY Patient Outreach (FAMPST) MARNI ACOSTA ([id number]) 1950 F Date Time Provider Department 09/08/18 NATHAN ALVAREZ [facility] During your visit today, we recorded the following information about you: Allergies As of Date: 09/08/2018 Noted Allergy Reaction FLAGYL (METRONIDAZOLE HCL) 05/22/2005 2 - Rash Comments: Pt tolerates topical. Refer to phone note on 03-12-07. Date Reviewed: 08/20/2018 Reviewed by: Breonna Recinos MA - Fully Assessed Visit Diagnosis:Medication management [Z79.899] Order(s):TSH BLD [SQTSH] Order #: [id number] FUTURE Prescriptions as of 09/08/2018 Sig: LISINOPRIL 20 MG TABLET Take 1 tablet by mouth once d* ALLOPURINOL 300 MG TABLET Take 1 tablet by mouth once d* RANITIDINE 150 MG TABLET Take 1 tablet by mouth twice * OMEGA-3 FATTY ACIDS 1,000 MG * Take 2 capsules by mouth twic* KETOCONAZOLE 2 % SHAMPOO Apply to affected area once * AZELAIC ACID 15 % TOPICAL GEL Apply to affected area. HYDROCORTISONE 2.5 % TOPICAL * Apply 1 application to affect* MOMETASONE 0.1 % TOPICAL CREAM Apply to areas twice a day. * CALCIUM CARBONATE 550 MG-MAGN* Take 1 tablet by mouth as nee* * MULTIVITAMIN TABLET Take one(1) tablet daily. * CALCIUM + D 600 MG (1,500 MG)* taking 5 per week * TYLENOL EXTRA STRENGTH 500 MG* Take two(2) tablets every six* Problem List As Of Date 09/08/2018 Noted Resolved Malignant Neoplasm of Corpus Uteri, except Isth* 02/20/2010 More... History of endometrial cancer [Z85.42] INVALID FOR* More... Rosacea [L71.9] INVALID FOR* Well adult exam [Z00.00] INVALID FOR* More... Eczema [L30.9] INVALID FOR* Routine gynecological examination [Z01.419] INVALID FOR* More... 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 Hypercalcemia [E83.52] INVALID FOR* Osteopenia [M85.80] INVALID FOR* Medicare annual wellness visit, subsequent [Z00*INVALID FOR* More... Class 2 obesity due to excess calories without *INVALID FOR* Arthritis of both knees [M17.0] INVALID FOR* More... Encounter Status:Closed by RY LOPEZ on 10/09/18 PROGRESS Observed: 08/20/2018 Status: COMPLETED Source: [place] 10:13 AM [facility] [place] REPOSITORY HNO ID: [id number] Author: Iveth Ramirez Service: (none) Author Type: Physician Type: Progress Notes Filed: 08/20/2018 12:19 PM Note Text: Follow up podiatric office visit for: Chief Complaint: This 68 year old who presents for follow up cellulitis of left 3rd toe. Patient has been taking the keflex and has 3 more days. She feels the redness has improved. She has no pain. She still notices purple discoloration of the toenail but no redness to toe. Does complain of numbness in both extremities. PAIN EVALUATION No data found. No results found for: HBA1C PCP: Nathan Alvarez MD PAST MEDICAL HISTORY Diagnosis Date - Eczema 10/28/2014 - Endometrial cancer (HCC) 02/20/2010 Dx 2006 - Gout hx of - Hyperlipidaemia 04/21/2015 - Hypertension 05/22/2005 - Hypothyroidism - Obesity, unspecified 05/22/2005 - Rosacea 05/17/2010 Current Outpatient Prescriptions: cephALEXin (KEFLEX) 500 mg capsule Take 1 capsule by mouth twice daily for 10 days. lisinopril (ZESTRIL, PRINIVIL) 20 mg tablet Take 1 tablet by mouth once daily. allopurinol (ZYLOPRIM) 300 mg tablet Take 1 tablet by mouth once daily. ranitidine (ZANTAC) 150 mg tablet Take 1 tablet by mouth twice daily. omega-3 fatty acids 1,000 mg cap Take 2 capsules by mouth twice daily. ketoconazole (NIZORAL) 2 % shampoo Apply to affected area once daily as needed. Azelaic Acid (FINACEA) 15 % gel Apply to affected area. hydrocortisone 2.5 % cream Apply 1 application to affected area twice daily. Apply to areas weekly as needed. mometasone (ELOCON) 0.1 % cream Apply to areas twice a day. On for 4 days and off for 3 days. Repeat as needed. Calcium Carbonate-Mag Hydroxid (ROLAIDS) 550-110 mg Chew Take 1 tablet by mouth as needed. Multivitamin ORAL Tab Take one(1) tablet daily. Calcium Carbonate-Vitamin D2 (CALCIUM + D) 600-200 mg-unit ORAL Tab taking 5 per week acetaminophen (TYLENOL EXTRA STRENGTH) 500 mg ORAL Tab Take two(2) tablets every six(6) hours as needed for pain. No current facility-administered medications for this visit. ALLERGIES Allergen Reactions - Flagyl [Metronidazo* Rash Pt tolerates topical. Refer to phone note on 03-12-07. PAST SURGICAL HISTORY Procedure Laterality Date - APPENDECTOMY AGE 6 - DELIVERY ONLY 1982, 1984 , low transverse x 2 - COLONOSCOP W/ OR W/O [facility] SPEC 12/01/2009 Colonoscopy, recheck 10 yrs - PAST SURGICAL HISTORY OF * 2 - TOTAL ABDOM HYSTERECTOMY 2006 BSO - US PERC CHOLECYSTOSTOMY 1995 REVIEW OF SYSTEMS: CONSTITUTIONAL: No fevers, chills, nightsweats, unintended weight loss HEENT: Denies frequent or severe heaches, nasal congestion/sinus symptoms, problematic allergy problems. EYES: No diplopia or blurry vision. CARDIOVASCULAR: No chest pain, dyspnea, palpitations, orthopnea, PND, ankle edema. PULM: No dyspnea, unexplained cough. GI: No dysphagia/odynophagia, problematic reflux, constipation, diarrhea, changes in stool habits, hematochezia, melena. : No new urinary complaints, including dysuria, gross hematuria or pyuria. NEURO: + numbness of b/l lower extremity MUSC-SKEL: No new joint pain, swelling, or erythema. PSY: No concerns regarding depression, anxiety or panic. INTEGUMENTARY: No new skin changes (rash, new or changing mole, new growth) Physical Exam: Constitutional: Pt is a well developed 68 year old female who is alert, oriented, cooperative and in no apparent distress. OBJECTIVE: Neuro: vibratory sensation is decreased to b/l hallux. Protective sensation is intact to b/l feet. Dermatological: Left 3rd toe has resolved redness. Left 3rd toenail does appear dark but no lifting or nail plate or pain with palpation. Webspaces clean and dry 1-4 b/l. Skin appears well hydrated and supple. good color, texture, turgor. No open lesions present. No callosities present. Musculoskeletal/Orthopaedic: Patient has no pain to palpation of b/l feet ASSESSMENT: (L03.032, L02.612) Cellulitis and abscess of toe of left foot (primary encounter diagnosis) (R20.0) Numbness PLAN: 1. History and physical examination completed today. 2. Discussed past cellulitis of left 3rd toe. The cellulitis has improved. Nail is dark but no pain or lifting. Discussed removal of toenail but she elected to monitor. If issues develop again to this toe, consider avulsion of toenail 3. Discussed numbness of feet. While neuroma is possible, given that her numbness is involving all toes and extending up leg, I suspect more neuropathy. Discussed getting emg/ncv. Patient in agreement. Iveth Ramirez DPM PROGRESS Observed: 08/20/2018 Status: COMPLETED Source: [place] 9:59 AM [facility] RE[facility]IT[facility] HNO ID: [id number] Author: Breonna Recinos MA Service: (none) Author Type: (none) Type: Progress Notes Filed: 08/20/2018 12:19 PM Note Text: AMB ROOMING INTAKE FLOWSHEET DATA Risk Screening Do you have concerns about personal safety or safety in the home?: No Patient is here for 1 wk f/u cellulitis L 3rd toe. Patient states she has tingling b/l feet. Patients denies taking anything for the tingling. CNOV Observed: 08/20/2018 Status: COMPLETED Source: [place] 9:55 AM [facility] REPOSITORY Office Visit (PODIWS) MARNI ACOSTA ([id number]) 1950 F Date Time Provider Department 08/20/18 9:55 AM IVETH RAMIREZ PODIWS During your visit today, we recorded the following information about you: Breonna Recinos MA 08/20/2018 12:19 PM Signed [facility] Risk Screening Do you have concerns about personal safety or safety in the home?: No Patient is here for 1 wk f/u cellulitis L 3rd toe. Patient states she has tingling b/l feet. Patients denies taking anything for the tingling. Iveth Ramirez DPM 08/20/2018 12:19 PM Signed Follow up podiatric office visit for: Chief Complaint: This 68 year old who presents for follow up cellulitis of left 3rd toe. Patient has been taking the keflex and has 3 more days. She feels the redness has improved. She has no pain. She still notices purple discoloration of the toenail but no redness to toe. Does complain of numbness in both extremities. PAIN EVALUATION No data found. No results found for: HBA1C PCP: Nathan Alvarez MD PAST MEDICAL HISTORY Diagnosis Date - Eczema 10/28/2014 - Endometrial cancer (HCC) 02/20/2010 Dx 2006 - Gout hx of - Hyperlipidaemia 04/21/2015 - Hypertension 05/22/2005 - Hypothyroidism - Obesity, unspecified 05/22/2005 - Rosacea 05/17/2010 Current Outpatient Prescriptions: cephALEXin (KEFLEX) 500 mg capsule Take 1 capsule by mouth twice daily for 10 days. lisinopril (ZESTRIL, PRINIVIL) 20 mg tablet Take 1 tablet by mouth once daily. allopurinol (ZYLOPRIM) 300 mg tablet Take 1 tablet by mouth once daily. ranitidine (ZANTAC) 150 mg tablet Take 1 tablet by mouth twice daily. omega-3 fatty acids 1,000 mg cap Take 2 capsules by mouth twice daily. ketoconazole (NIZORAL) 2 % shampoo Apply to affected area once daily as needed. Azelaic Acid (FINACEA) 15 % gel Apply to affected area. hydrocortisone 2.5 % cream Apply 1 application to affected area twice daily. Apply to areas weekly as needed. mometasone (ELOCON) 0.1 % cream Apply to areas twice a day. On for 4 days and off for 3 days. Repeat as needed. Calcium Carbonate-Mag Hydroxid (ROLAIDS) 550-110 mg Chew Take 1 tablet by mouth as needed. Multivitamin ORAL Tab Take one(1) tablet daily. Calcium Carbonate-Vitamin D2 (CALCIUM + D) 600-200 mg-unit ORAL Tab taking 5 per week acetaminophen (TYLENOL EXTRA STRENGTH) 500 mg ORAL Tab Take two(2) tablets every six(6) hours as needed for pain. No current facility-administered medications for this visit. ALLERGIES Allergen Reactions - Flagyl [Metronidazo* Rash Pt tolerates topical. Refer to phone note on 03-12-07. PAST SURGICAL HISTORY Procedure Laterality Date - APPENDECTOMY AGE 6 - DELIVERY ONLY 1982, 1984 , low transverse x 2 - COLONOSCOP W/ OR W/O [facility] SPEC 12/01/2009 Colonoscopy, recheck 10 yrs - PAST SURGICAL HISTORY OF * 2 - TOTAL ABDOM HYSTERECTOMY 2006 BSO - US PERC CHOLECYSTOSTOMY 1995 REVIEW OF SYSTEMS: CONSTITUTIONAL: No fevers, chills, nightsweats, unintended weight loss HEENT: Denies frequent or severe heaches, nasal congestion/sinus symptoms, problematic allergy problems. EYES: No diplopia or blurry vision. CARDIOVASCULAR: No chest pain, dyspnea, palpitations, orthopnea, PND, ankle edema. PULM: No dyspnea, unexplained cough. GI: No dysphagia/odynophagia, problematic reflux, constipation, diarrhea, changes in stool habits, hematochezia, melena. : No new urinary complaints, including dysuria, gross hematuria or pyuria. NEURO: + numbness of b/l lower extremity MUSC-SKEL: No new joint pain, swelling, or erythema. PSY: No concerns regarding depression, anxiety or panic. INTEGUMENTARY: No new skin changes (rash, new or changing mole, new growth) Physical Exam: Constitutional: Pt is a well developed 68 year old female who is alert, oriented, cooperative and in no apparent distress. OBJECTIVE: Neuro: vibratory sensation is decreased to b/l hallux. Protective sensation is intact to b/l feet. Dermatological: Left 3rd toe has resolved redness. Left 3rd toenail does appear dark but no lifting or nail plate or pain with palpation. Webspaces clean and dry 1-4 b/l. Skin appears well hydrated and supple. good color, texture, turgor. No open lesions present. No callosities present. Musculoskeletal/Orthopaedic: Patient has no pain to palpation of b/l feet ASSESSMENT: (L03.032, L02.612) Cellulitis and abscess of toe of left foot (primary encounter diagnosis) (R20.0) Numbness PLAN: 1. History and physical examination completed today. 2. Discussed past cellulitis of left 3rd toe. The cellulitis has improved. Nail is dark but no pain or lifting. Discussed removal of toenail but she elected to monitor. If issues develop again to this toe, consider avulsion of toenail 3. Discussed numbness of feet. While neuroma is possible, given that her numbness is involving all toes and extending up leg, I suspect more neuropathy. Discussed getting emg/ncv. Patient in agreement. KAREEN Cardona RN 08/20/2018 10:34 AM Signed Your EMG/NCV is scheduled on 11/11/18 at 9:00 am at [facility]. In case you need to cancel or reschedule call the scheduling department at [phone]. Our office will contact you with the results. Reed Castillo Ma 08/20/2018 2:13 PM Signed Addended by: REED CASTILLO MA on: 08/20/2018 02:13 PM Modules accepted: Orders Iveth Ramirez DPM 08/20/2018 2:14 PM Signed Addended by: IVETH RAMIREZ DPM on: 08/20/2018 02:14 PM Modules accepted: Orders Referring Provider: IVETH RAMIREZ [[id number]] Allergies As of Date: 08/20/2018 Noted Allergy Reaction FLAGYL (METRONIDAZOLE HCL) 05/22/2005 2 - Rash Comments: Pt tolerates topical. Refer to phone note on 03-12-07. Date Reviewed: 08/20/2018 Reviewed by: Breonna Recinos MA - Fully Assessed Reason for Visit: Follow Up [171] Primary Visit Diagnosis:Cellulitis and abscess of toe of left foot [L03.032, L02.612] Other Visit Diagnosis:Numbness [R20.0] Order(s):EMG(NEURO/NI) [20110208] Order #: [id number]: 1 FUTURE EMG(NEURO/NI) [20110208] Order #: [id number]: 1 FUTURE Prescriptions as of 08/20/2018 Sig: CEPHALEXIN 500 MG CAPSULE Take 1 capsule by mouth twice* LISINOPRIL 20 MG TABLET Take 1 tablet by mouth once d* ALLOPURINOL 300 MG TABLET Take 1 tablet by mouth once d* RANITIDINE 150 MG TABLET Take 1 tablet by mouth twice * OMEGA-3 FATTY ACIDS 1,000 MG * Take 2 capsules by mouth twic* KETOCONAZOLE 2 % SHAMPOO Apply to affected area once * AZELAIC ACID 15 % TOPICAL GEL Apply to affected area. HYDROCORTISONE 2.5 % TOPICAL * Apply 1 application to affect* MOMETASONE 0.1 % TOPICAL CREAM Apply to areas twice a day. * CALCIUM CARBONATE 550 MG-MAGN* Take 1 tablet by mouth as nee* * MULTIVITAMIN TABLET Take one(1) tablet daily. * CALCIUM + D 600 MG (1,500 MG)* taking 5 per week * TYLENOL EXTRA STRENGTH 500 MG* Take two(2) tablets every six* Problem List As Of Date 08/20/2018 Noted Resolved Malignant Neoplasm of Corpus Uteri, except Isth* 02/20/2010 More... History of endometrial cancer [Z85.42] INVALID FOR* Priority: C More... Rosacea [L71.9] INVALID FOR* Priority: C Well adult exam [Z00.00] INVALID FOR* Priority: D More... Eczema [L30.9] INVALID FOR* Priority: D Routine gynecological examination [Z01.419] INVALID FOR* Priority: D More... 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 Hypercalcemia [E83.52] INVALID FOR* Osteopenia [M85.80] INVALID FOR* Priority: M Medicare annual wellness visit, subsequent [Z00*INVALID FOR* Priority: E More... Class 2 obesity due to excess calories without *INVALID FOR* Priority: B Arthritis of both knees [M17.0] INVALID FOR* Priority: M More... Notes for Staff Call patient with results Other instructions from your clinician: Your EMG/NCV is scheduled on 11/11/18 at 9:00 am at [facility]. In case you need to cancel or reschedule call the scheduling department at [phone]. Our office will contact you with the results. Follow Up: Call patient with results Follow-up and Disposition History Recorded Encounter Status:Closed by IVETH RAMIREZ DPM on 08/20/18 PROGRESS Observed: 08/14/2018 Status: COMPLETED Source: [place] 9:21 AM [facility] REPOSITORY HNO ID: [id number] Author: Shobha Blake Service: (none) Author Type: (none) Type: Progress Notes Filed: 08/14/2018 9:22 AM Note Text: Pap logged and normal pap letter sent to patient. Shobha Blake XR FOOT 3V AP/LAT/OBL Observed: 08/13/2018 Status: F Source: [facility] 3:48 PM [facility] REPOSITORY * * *Final Report* * * DATE OF EXAM: Aug 13 2018 3:48PM [id number] [id number] - XR FOOT 3V AP/LAT/OBL LT / PROCEDURE REASON: multiple diagnoses * * * * Physician Interpretation * * * * HISTORY: 68-YEAR-OLD FEMALE WITH Cellulitis and abscess of toe of left foot Cellulitis and abscess of toe of left foot . pt states noticed redness and swelling in left 3rd toe since Friday no inj TECHNIQUE: XR FOOT 3V AP/LAT/OBL LT Laterality: LEFT Number of different views (projections): 3 COMPARISON: 09/09/2012 RESULT: Narrowing of the second MTP joint with osteophyte formation. Mild narrowing of interphalangeal joints of the third and fourth digit. Narrowing of the second and third tarsometatarsal joints. Large accessory ossicle navicular, type II with pseudarthrosis. Calcaneal enthesophyte insertion of plantar fascia and Achilles tendon. No acute fracture. No definite focal soft tissue swelling and no evidence of osteomyelitis. Mild pes planus. IMPRESSION: MILD FOREFOOT DEGENERATIVE CHANGES. TYPE II OS NAVICULARIS WITH PSEUDARTHROSIS. CALCANEAL ENTHESOPHYTES. MILD PES PLANUS NO SIGNIFICANT CHANGE COMPARED TO PREVIOUS EXAM. Statement Processor: JAYLENE Transcribe Date/Time: Aug 13 2018 8:39P Dictated by : CAM CORTEZ MD This examination was interpreted and the report reviewed and electronically signed by: CAM CORTEZ MD on Aug 13 2018 8:43PM EST [id number] PROGRESS Observed: 08/13/2018 Status: COMPLETED Source: [place] 3:41 PM [facility] [place] REPOSITORY HNO ID: [id number] Author: Paola Plaza (Carter Burger Service: (none) Author Type: Director Of Integrated Marketing Type: Progress Notes Filed: 08/13/2018 3:47 PM Note Text: Radiology Service Progress Note PATIENT NAME: Marni Acosta DATE OF SERVICE: August 13, 2018 TIME: 3:41 PM PATIENT IDENTITY VERIFICATION COMPLETED USING TWO (2) METHODS: Patient confirmed name verbally and Date of . PATIENT GENDER DATA: Female. status: : No status: NO. PATIENT RELEVANT IMPLANT DATA REVIEWED: Not Applicable RADIOLOGY DEPARTMENT: General X-ray: Exam(s) Completed: Lower Extremity X-Ray(s): Foot, Left: PERIPHERAL IV DATA: Not applicable SIGNED BY: RT Jeni August 13, 2018 3:41 PM PROGRESS Observed: 08/13/2018 Status: COMPLETED Source: [place] 3:12 PM [facility] RE[facility]IT[facility] HNO ID: [id number] Author: Iveth Ramirez Service: (none) Author Type: Physician Type: Progress Notes Filed: 08/13/2018 9:54 PM Note Text: Consultation requested by Marleni Arce for an opinion regarding cellulitis of left 3rd toe. My final recommendations will be communicated back to the requesting physician by way of shared Medical record or letter to requesting physician via US mail. Initial Podiatric Office Visit: Chief Complaint: This 68 year old female who presents with chief complaint:cellulitis of left 3rd toe HPI Patient presents to clinic for evaluation of left foot Patient has redness of left 3rd toe but no pain to the toe. She states on occasion, there will be pain if any pressure is applied to toe She denies any injury. She states on Friday when she went to trim her toes, she noticed redness of toe. She went to urgent care today and was prescribed keflex. She just saw urgent care today so she has not started any antibiotic yet. PAIN EVALUATION No data found. No results found for: HBA1C PCP: Nathan Alvarez MD PAST MEDICAL HISTORY Diagnosis Date - Eczema 10/28/2014 - Endometrial cancer (HCC) 02/20/2010 Dx 2006 - Gout hx of - Hyperlipidaemia 04/21/2015 - Hypertension 05/22/2005 - Hypothyroidism - Obesity, unspecified 05/22/2005 - Rosacea 05/17/2010 Current Outpatient Prescriptions: cephALEXin (KEFLEX) 500 mg capsule Take 1 capsule by mouth twice daily for 10 days. lisinopril (ZESTRIL, PRINIVIL) 20 mg tablet Take 1 tablet by mouth once daily. allopurinol (ZYLOPRIM) 300 mg tablet Take 1 tablet by mouth once daily. ranitidine (ZANTAC) 150 mg tablet Take 1 tablet by mouth twice daily. omega-3 fatty acids 1,000 mg cap Take 2 capsules by mouth twice daily. ketoconazole (NIZORAL) 2 % shampoo Apply to affected area once daily as needed. Azelaic Acid (FINACEA) 15 % gel Apply to affected area. hydrocortisone 2.5 % cream Apply 1 application to affected area twice daily. Apply to areas weekly as needed. Calcium Carbonate-Mag Hydroxid (ROLAIDS) 550-110 mg Chew Take 1 tablet by mouth as needed. Multivitamin ORAL Tab Take one(1) tablet daily. Calcium Carbonate-Vitamin D2 (CALCIUM + D) 600-200 mg-unit ORAL Tab taking 5 per week acetaminophen (TYLENOL EXTRA STRENGTH) 500 mg ORAL Tab Take two(2) tablets every six(6) hours as needed for pain. mometasone (ELOCON) 0.1 % cream Apply to areas twice a day. On for 4 days and off for 3 days. Repeat as needed. No current facility-administered medications for this visit. ALLERGIES Allergen Reactions - Flagyl [Metronidazo* Rash Pt tolerates topical. Refer to phone note on 03-12-07. PAST SURGICAL HISTORY Procedure Laterality Date - APPENDECTOMY AGE 6 - DELIVERY ONLY 1982, 1984 , low transverse x 2 - COLONOSCOP W/ OR W/O [facility] SPEC 12/01/2009 Colonoscopy, recheck 10 yrs - PAST SURGICAL HISTORY OF * 2 - TOTAL ABDOM HYSTERECTOMY 2006 BSO - US PERC CHOLECYSTOSTOMY 1995 FAMILY HISTORY Problem Relation Age of Onset - Diabetes Mother - other (dementia) Mother - Heart Father - Ischemic Heart Disease Father - Cancer Paternal Grandmother BREAST - Heart Paternal Grandfather PACEMAKER Social History Marital status: Spouse name: Cheng Years of education: Number of children: 2 Occupational History Occupation Employer Comment [employer] Social History Main Topics Smoking status: Former Smoker Packs/day: 0.00 Years: 0.00 Smokeless tobacco: Never Used Comment: quit 30 years ago Alcohol use: Yes 1.5 oz/week Glasses of Wine (5oz): 1 per week Comment: 2-3 times a week Drug use: No Sexual activity: Yes Partners with: Male REVIEW OF SYSTEMS GENERAL: Negative for Malaise, significant weight loss, fever RESPIRATORY: Negative for cough, wheezing and shortness of breath CARDIOVASCULAR: Negative for chest pain, leg swelling and palpitations GI: Negative for abdominal discomfort, blood in stools or black stools and change in bowel habits : Negative for dysuria, frequency and incontinence MUSCULOSKELETAL: Negative for joint pain or swelling, back pain, and muscle pain. SKIN: redness of left 3rd toe HEMATOLOGY/LYMPHOLOGY Negative for prolonged bleeding, bruising easily, and swollen nodes. ENDOCRINE: Negative for cold or heat intolerance, polyuria, polydipsia and goiter. NEURO: negative Physical Exam: Constitutional: Pt is a well developed 68 year old female who is alert, oriented and cooperative Eyes: Following during examination. No redness or drainage. Respiratory: RR normal and nonlabored. Even breathing. No evidence of distress or shortness of breath. Psychology: Patient is engaged during conversation. Normal affect and mood. Does not appear depressed or anxious during encounter. Vascular: Dorsalis pedis and posterior tibial pulses palpable as b/l Capillary Fill time < 5 seconds to digits 1-5 b/l Skin temperature warm to warm proximal to distal b/l Hair growth present to digits Neurological: intact light touch/epicritic sensation b/l intact protective sensation no significant neurological deficits Dermatological: Left 3rd toe has redness just proximal to nail plate. Left 3rd toenail does not appear loose. No drainage is present. There is very superficial callus of left 3rd toe. Musculoskeletal/Orthopaedic: Patient has no pain to palpation of left 3rd toe Foot type is neutral structurally AJ ROM is full with knee extended and flexed 1st MPJ is full when loaded and no pain or crepitus are noted with ROM. MTJ, STJ are full and free of pain and crepitus. +5/5 muscle strength dorsiflexion, plantarflexion, inversion, eversion b/l Radiographs: ordered ASSESSMENT: (L03.032, L02.612) Cellulitis and abscess of toe of left foot (primary encounter diagnosis) PLAN: 1. History and physical examination performed. 2. Discussed cellulitis of left third toe. Patient prescribed keflex today. Recommend she start the keflex and perform daily soaks . 3. Discussed removal of left 3rd toenail vs monitoring infection to see if improves. Patient has elected to monitor. If infection fails to improve, will consider removal of toenail 4. Callus filed to left 3rd toe as courtesy 5. F/u in1 Week Iveth Ramirez DPM PROGRESS Observed: 08/13/2018 Status: COMPLETED Source: [place] 3:00 PM [facility] REPOSITORY HNO ID: [id number] Author: Meg Ortiz RN Service: (none) Author Type: (none) Type: Progress Notes Filed: 08/13/2018 9:54 PM Note Text: AMB ROOMING INTAKE FLOWSHEET DATA Patient presents to office directly from Urgent Care where she was seen for infection of L 3rd toe. Toe appears red. Denies drainage. Pt noticed it Friday evening while trimming her toenails but denies any injury to toe. Toe not painful. Patient denies n/v/f/c. She was prescribed Keflex by today and instructed to soak toe in epsom salts. CNOV Observed: 08/13/2018 Status: COMPLETED Source: [place] 2:55 PM [facility] REPOSITORY Office Visit (PODIWS) MARNI ACOSTA ([id number]) 1950 F Date Time Provider Department 08/13/18 2:55 PM IVETH RAMIREZ PODIWS During your visit today, we recorded the following information about you: Meg Ortiz RN 08/13/2018 9:54 PM Signed AMB ROOMING INTAKE FLOWSHEET DATA Patient presents to office directly from Urgent Care where she was seen for infection of L 3rd toe. Toe appears red. Denies drainage. Pt noticed it Friday evening while trimming her toenails but denies any injury to toe. Toe not painful. Patient denies n/v/f/c. She was prescribed Keflex by today and instructed to soak toe in epsom salts. Iveth Ramirez DPM 08/13/2018 9:54 PM Signed Consultation requested by Marleni Arce for an opinion regarding cellulitis of left 3rd toe. My final recommendations will be communicated back to the requesting physician by way of shared Medical record or letter to requesting physician via US mail. Initial Podiatric Office Visit: Chief Complaint: This 68 year old female who presents with chief complaint:cellulitis of left 3rd toe HPI Patient presents to clinic for evaluation of left foot Patient has redness of left 3rd toe but no pain to the toe. She states on occasion, there will be pain if any pressure is applied to toe She denies any injury. She states on Friday when she went to trim her toes, she noticed redness of toe. She went to urgent care today and was prescribed keflex. She just saw urgent care today so she has not started any antibiotic yet. PAIN EVALUATION No data found. No results found for: HBA1C PCP: Nathan Alvarez MD PAST MEDICAL HISTORY Diagnosis Date - Eczema 10/28/2014 - Endometrial cancer (HCC) 02/20/2010 Dx 2006 - Gout hx of - Hyperlipidaemia 04/21/2015 - Hypertension 05/22/2005 - Hypothyroidism - Obesity, unspecified 05/22/2005 - Rosacea 05/17/2010 Current Outpatient Prescriptions: cephALEXin (KEFLEX) 500 mg capsule Take 1 capsule by mouth twice daily for 10 days. lisinopril (ZESTRIL, PRINIVIL) 20 mg tablet Take 1 tablet by mouth once daily. allopurinol (ZYLOPRIM) 300 mg tablet Take 1 tablet by mouth once daily. ranitidine (ZANTAC) 150 mg tablet Take 1 tablet by mouth twice daily. omega-3 fatty acids 1,000 mg cap Take 2 capsules by mouth twice daily. ketoconazole (NIZORAL) 2 % shampoo Apply to affected area once daily as needed. Azelaic Acid (FINACEA) 15 % gel Apply to affected area. hydrocortisone 2.5 % cream Apply 1 application to affected area twice daily. Apply to areas weekly as needed. Calcium Carbonate-Mag Hydroxid (ROLAIDS) 550-110 mg Chew Take 1 tablet by mouth as needed. Multivitamin ORAL Tab Take one(1) tablet daily. Calcium Carbonate-Vitamin D2 (CALCIUM + D) 600-200 mg-unit ORAL Tab taking 5 per week acetaminophen (TYLENOL EXTRA STRENGTH) 500 mg ORAL Tab Take two(2) tablets every six(6) hours as needed for pain. mometasone (ELOCON) 0.1 % cream Apply to areas twice a day. On for 4 days and off for 3 days. Repeat as needed. No current facility-administered medications for this visit. ALLERGIES Allergen Reactions - Flagyl [Metronidazo* Rash Pt tolerates topical. Refer to phone note on 03-12-07. PAST SURGICAL HISTORY Procedure Laterality Date - APPENDECTOMY AGE 6 - DELIVERY ONLY 1982, 1984 , low transverse x 2 - COLONOSCOP W/ OR W/O [facility] SPEC 12/01/2009 Colonoscopy, recheck 10 yrs - PAST SURGICAL HISTORY OF * 2 - TOTAL ABDOM HYSTERECTOMY 2006 BSO - US PERC CHOLECYSTOSTOMY 1995 FAMILY HISTORY Problem Relation Age of Onset - Diabetes Mother - other (dementia) Mother - Heart Father - Ischemic Heart Disease Father - Cancer Paternal Grandmother BREAST - Heart Paternal Grandfather PACEMAKER Social History Marital status: Spouse name: Cheng Years of education: Number of children: 2 Occupational History Occupation Employer Comment [employer] Social History Main Topics Smoking status: Former Smoker Packs/day: 0.00 Years: 0.00 Smokeless tobacco: Never Used Comment: quit 30 years ago Alcohol use: Yes 1.5 oz/week Glasses of Wine (5oz): 1 per week Comment: 2-3 times a week Drug use: No Sexual activity: Yes Partners with: Male REVIEW OF SYSTEMS GENERAL: Negative for Malaise, significant weight loss, fever RESPIRATORY: Negative for cough, wheezing and shortness of breath CARDIOVASCULAR: Negative for chest pain, leg swelling and palpitations GI: Negative for abdominal discomfort, blood in stools or black stools and change in bowel habits : Negative for dysuria, frequency and incontinence MUSCULOSKELETAL: Negative for joint pain or swelling, back pain, and muscle pain. SKIN: redness of left 3rd toe HEMATOLOGY/LYMPHOLOGY Negative for prolonged bleeding, bruising easily, and swollen nodes. ENDOCRINE: Negative for cold or heat intolerance, polyuria, polydipsia and goiter. NEURO: negative Physical Exam: Constitutional: Pt is a well developed 68 year old female who is alert, oriented and cooperative Eyes: Following during examination. No redness or drainage. Respiratory: RR normal and nonlabored. Even breathing. No evidence of distress or shortness of breath. Psychology: Patient is engaged during conversation. Normal affect and mood. Does not appear depressed or anxious during encounter. Vascular: Dorsalis pedis and posterior tibial pulses palpable as b/l Capillary Fill time < 5 seconds to digits 1-5 b/l Skin temperature warm to warm proximal to distal b/l Hair growth present to digits Neurological: intact light touch/epicritic sensation b/l intact protective sensation no significant neurological deficits Dermatological: Left 3rd toe has redness just proximal to nail plate. Left 3rd toenail does not appear loose. No drainage is present. There is very superficial callus of left 3rd toe. Musculoskeletal/Orthopaedic: Patient has no pain to palpation of left 3rd toe Foot type is neutral structurally AJ ROM is full with knee extended and flexed 1st MPJ is full when loaded and no pain or crepitus are noted with ROM. MTJ, STJ are full and free of pain and crepitus. +5/5 muscle strength dorsiflexion, plantarflexion, inversion, eversion b/l Radiographs: ordered ASSESSMENT: (L03.032, L02.612) Cellulitis and abscess of toe of left foot (primary encounter diagnosis) PLAN: 1. History and physical examination performed. 2. Discussed cellulitis of left third toe. Patient prescribed keflex today. Recommend she start the keflex and perform daily soaks . 3. Discussed removal of left 3rd toenail vs monitoring infection to see if improves. Patient has elected to monitor. If infection fails to improve, will consider removal of toenail 4. Callus filed to left 3rd toe as courtesy 5. F/u in1 Week Iveth Ramirez DPM Referring Provider: MARLENI ARCE ([facility]) [[id number]] Allergies As of Date: 08/13/2018 Noted Allergy Reaction FLAGYL (METRONIDAZOLE HCL) 05/22/2005 2 - Rash Comments: Pt tolerates topical. Refer to phone note on 03-12-07. Date Reviewed: 08/13/2018 Reviewed by: Meg Ortiz RN - Fully Assessed Reason for Visit: New Patient [[id number]] Primary Visit Diagnosis:Cellulitis and abscess of toe of left foot [L03.032, L02.612] Order(s):XR FOOT GENERAL 3V AP/LAT/OBL LT [[id number]] Order #: [id number] FUTURE Prescriptions as of 08/13/2018 Sig: CEPHALEXIN 500 MG CAPSULE Take 1 capsule by mouth twice* LISINOPRIL 20 MG TABLET Take 1 tablet by mouth once d* ALLOPURINOL 300 MG TABLET Take 1 tablet by mouth once d* RANITIDINE 150 MG TABLET Take 1 tablet by mouth twice * OMEGA-3 FATTY ACIDS 1,000 MG * Take 2 capsules by mouth twic* KETOCONAZOLE 2 % SHAMPOO Apply to affected area once * AZELAIC ACID 15 % TOPICAL GEL Apply to affected area. HYDROCORTISONE 2.5 % TOPICAL * Apply 1 application to affect* CALCIUM CARBONATE 550 MG-MAGN* Take 1 tablet by mouth as nee* * MULTIVITAMIN TABLET Take one(1) tablet daily. * CALCIUM + D 600 MG (1,500 MG)* taking 5 per week * TYLENOL EXTRA STRENGTH 500 MG* Take two(2) tablets every six* MOMETASONE 0.1 % TOPICAL CREAM Apply to areas twice a day. * Problem List As Of Date 08/13/2018 Noted Resolved Malignant Neoplasm of Corpus Uteri, except Isth* 02/20/2010 More... History of endometrial cancer [Z85.42] INVALID FOR* Priority: C More... Rosacea [L71.9] INVALID FOR* Priority: C Well adult exam [Z00.00] INVALID FOR* Priority: D More... Eczema [L30.9] INVALID FOR* Priority: D Routine gynecological examination [Z01.419] INVALID FOR* Priority: D More... 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 Hypercalcemia [E83.52] INVALID FOR* Osteopenia [M85.80] INVALID FOR* Priority: M Medicare annual wellness visit, subsequent [Z00*INVALID FOR* Priority: E More... Class 2 obesity due to excess calories without *INVALID FOR* Priority: B Arthritis of both knees [M17.0] INVALID FOR* Priority: M More... Disposition: Return in about 1 week (around 08/20/2018) for cellulitis, L 3rd toe. Follow-up and Disposition History Recorded Encounter Status:Closed by IVETH RAMIREZ DPM on 08/13/18 PROGRESS Observed: 08/13/2018 Status: COMPLETED Source: [place] 2:07 PM [facility] [place] REPOSITORY HNO ID: [id number] Author: Marleni Arce Service: (none) Author Type: Nurse Practitioner Type: Progress Notes Filed: 08/13/2018 2:54 PM Note Text: Subjective The history is provided by the patient. No yard spotter was used. HPI Marni Acosta is a 68 year old female who presents today for CC of painful 3rd toe on left foot. Onset/Duration: 2-3 days ago Alleviating/Treatment: none Aggravating: movement touch Risk factors: No known trauma or injury. BP 136/84 Pulse 76 Temp 36.9 ?C (98.4 ?F) (Tympanic) Wt 94.8 kg (209 lb) LMP 06/02/2006 BMI 35.87 kg/m? ALLERGIES Allergen Reactions - Flagyl [Metronidazo* Rash Pt tolerates topical. Refer to phone note on 03-12-07. ACTIVE PROBLEM LIST History of Endometrial Cancer Rosacea Well Adult Exam Eczema Routine Gynecological Examination Mixed Hyperlipidemia Colon Cancer Screening Essential Hypertension With Goal Blood Pressure Less Than 140/90 Chronic Gout Without Tophus Gerd Without Esophagitis Hyperparathyroidism (Hcc) Hypercalcemia Osteopenia Medicare Annual Wellness Visit, Subsequent Class 2 Obesity Due to Excess Calories Without Serious Comorbidity With Body Mass Index (Bmi) of 37.0 to 37.9 in Adult Arthritis of Both Knees Family History Problem Relation Age of Onset - Diabetes Mother - other (dementia) Mother - Heart Father - Ischemic Heart Disease Father - Cancer Paternal Grandmother BREAST - Heart Paternal Grandfather PACEMAKER Social History Marital status: Spouse name: Cheng Years of education: Number of children: 2 Occupational History Occupation Employer Comment [employer]* [employer] Social History Main Topics Smoking status: Former Smoker Packs/day: 0.00 Years: 0.00 Smokeless tobacco: Never Used Comment: quit 30 years ago Alcohol use: Yes 1.5 oz/week Glasses of Wine (5oz): 1 per week Comment: 2-3 times a week Drug use: No Sexual activity: Yes Partners with: Male PAST MEDICAL HISTORY Diagnosis Date - Eczema 10/28/2014 - Endometrial cancer (HCC) 02/20/2010 Dx 2006 - Gout hx of - Hyperlipidaemia 04/21/2015 - Hypertension 05/22/2005 - Hypothyroidism - Obesity, unspecified 05/22/2005 - Rosacea 05/17/2010 Review of Systems Constitutional: Negative for chills, fever and malaise/fatigue. Genitourinary: Negative for dysuria. Musculoskeletal: Negative for joint pain and myalgias. Skin: Negative for rash. Reddened toe 3rd left foot Neurological: Negative for headaches. Objective Physical Exam Constitutional: She is oriented to person, place, and time and well-developed, well-nourished, and in no distress. No distress. HENT: Head: Normocephalic and atraumatic. Eyes: Pupils are equal, round, and reactive to light. Conjunctivae and EOM are normal. Neck: Normal range of motion. Neck supple. Pulmonary/Chest: Effort normal. Musculoskeletal: Feet: Neurological: She is alert and oriented to person, place, and time. Skin: Skin is warm and dry. There is erythema. Psychiatric: Affect normal. Nursing note and vitals reviewed. ASSESSMENT/PLAN: 1. Pain of toe of left foot - ICD9: 729.5, ICD10: M79.675 Differential dx paronychia, felon Start antibiotic Warm soaks to area twice a day Follow up with podiatry for further treatment and management. - CONSULT TO PODIATRY Diagnosis and treatment plan were discussed and questions were answered to the patient's satisfaction. Pt acknowledged understanding of concepts and follow up plan. Specific signs and symptoms that would indicate the need for higher level of care were discussed in detail warranting prompt ER evaluation. Marleni Arce APRN.CNP CNOV Observed: 08/13/2018 Status: COMPLETED Source: [place] 2:00 PM [facility] REPOSITORY Office Visit (WSTR) MARNI ACOSTA ([id number]) 1950 F Date Time Provider Department 08/13/18 2:00 PM MARLENI ARCE ([place]) WSTR During your visit today, we recorded the following information about you: Temperature Pulse Blood pressure Weight 98.4 degrees 76/minute 136/84 94.8 kg Marleni Arce APRN.CNP 08/13/2018 2:54 PM Signed Subjective The history is provided by the patient. No yard spotter was used. AMBER Brasher Karla is a 68 year old female who presents today for CC of painful 3rd toe on left foot. Onset/Duration: 2-3 days ago Alleviating/Treatment: none Aggravating: movement touch Risk factors: No known trauma or injury. BP 136/84 Pulse 76 Temp 36.9 ?C (98.4 ?F) (Tympanic) Wt 94.8 kg (209 lb) LMP 06/02/2006 BMI 35.87 kg/m? ALLERGIES Allergen Reactions - Flagyl [Metronidazo* Rash Pt tolerates topical. Refer to phone note on 03-12-07. ACTIVE PROBLEM LIST History of Endometrial Cancer Rosacea Well Adult Exam Eczema Routine Gynecological Examination Mixed Hyperlipidemia Colon Cancer Screening Essential Hypertension With Goal Blood Pressure Less Than 140/90 Chronic Gout Without Tophus Gerd Without Esophagitis Hyperparathyroidism (Hcc) Hypercalcemia Osteopenia Medicare Annual Wellness Visit, Subsequent Class 2 Obesity Due to Excess Calories Without Serious Comorbidity With Body Mass Index (Bmi) of 37.0 to 37.9 in Adult Arthritis of Both Knees Family History Problem Relation Age of Onset - Diabetes Mother - other (dementia) Mother - Heart Father - Ischemic Heart Disease Father - Cancer Paternal Grandmother BREAST - Heart Paternal Grandfather PACEMAKER Social History Marital status: Spouse name: Cheng Years of education: Number of children: 2 Occupational History Occupation Employer Comment [employer]* [employer] Social History Main Topics Smoking status: Former Smoker Packs/day: 0.00 Years: 0.00 Smokeless tobacco: Never Used Comment: quit 30 years ago Alcohol use: Yes 1.5 oz/week Glasses of Wine (5oz): 1 per week Comment: 2-3 times a week Drug use: No Sexual activity: Yes Partners with: Male PAST MEDICAL HISTORY Diagnosis Date - Eczema 10/28/2014 - Endometrial cancer (HCC) 02/20/2010 Dx 2006 - Gout hx of - Hyperlipidaemia 04/21/2015 - Hypertension 05/22/2005 - Hypothyroidism - Obesity, unspecified 05/22/2005 - Rosacea 05/17/2010 Review of Systems Constitutional: Negative for chills, fever and malaise/fatigue. Genitourinary: Negative for dysuria. Musculoskeletal: Negative for joint pain and myalgias. Skin: Negative for rash. Reddened toe 3rd left foot Neurological: Negative for headaches. Objective Physical Exam Constitutional: She is oriented to person, place, and time and well-developed, well-nourished, and in no distress. No distress. HENT: Head: Normocephalic and atraumatic. Eyes: Pupils are equal, round, and reactive to light. Conjunctivae and EOM are normal. Neck: Normal range of motion. Neck supple. Pulmonary/Chest: Effort normal. Musculoskeletal: Feet: Neurological: She is alert and oriented to person, place, and time. Skin: Skin is warm and dry. There is erythema. Psychiatric: Affect normal. Nursing note and vitals reviewed. ASSESSMENT/PLAN: 1. Pain of toe of left foot - ICD9: 729.5, ICD10: M79.675 Differential dx paronychia, felon Start antibiotic Warm soaks to area twice a day Follow up with podiatry for further treatment and management. - CONSULT TO PODIATRY Diagnosis and treatment plan were discussed and questions were answered to the patient's satisfaction. Pt acknowledged understanding of concepts and follow up plan. Specific signs and symptoms that would indicate the need for higher level of care were discussed in detail warranting prompt ER evaluation. Marleni Arce APRN.CHEYENNE Arce APRN.CHEYENNE 08/13/2018 2:54 PM Addendum ASSESSMENT/PLAN: 1. Pain of toe of left foot - ICD9: 729.5, ICD10: M79.675 Start antibiotic Warm soaks to area twice a day Follow up with podiatry for further treatment and management. - CONSULT TO PODIATRY Referring Provider: SELF [[id number]] Allergies As of Date: 08/13/2018 Noted Allergy Reaction FLAGYL (METRONIDAZOLE HCL) 05/22/2005 2 - Rash Comments: Pt tolerates topical. Refer to phone note on 03-12-07. Date Reviewed: 08/13/2018 Reviewed by: Lucretia Velasco Ma - Fully Assessed Reason for Visit: Nail Fungus [764] Cmt: LT 3rd toe red and painful Primary Visit Diagnosis:Pain of toe of left foot [M79.675] Order(s):CONSULT TO PODIATRY [9034] Order #: [id number]: 1 cephALEXin (KEFLEX) 500 mg capsuleTake 1 capsule by mouth twice daily for 10 days.Disp: 20 capsuleRfl: 0 Prescriptions as of 08/13/2018 Sig: LISINOPRIL 20 MG TABLET Take 1 tablet by mouth once d* ALLOPURINOL 300 MG TABLET Take 1 tablet by mouth once d* RANITIDINE 150 MG TABLET Take 1 tablet by mouth twice * OMEGA-3 FATTY ACIDS 1,000 MG * Take 2 capsules by mouth twic* KETOCONAZOLE 2 % SHAMPOO Apply to affected area once * AZELAIC ACID 15 % TOPICAL GEL Apply to affected area. HYDROCORTISONE 2.5 % TOPICAL * Apply 1 application to affect* CALCIUM CARBONATE 550 MG-MAGN* Take 1 tablet by mouth as nee* * MULTIVITAMIN TABLET Take one(1) tablet daily. * CALCIUM + D 600 MG (1,500 MG)* taking 5 per week * TYLENOL EXTRA STRENGTH 500 MG* Take two(2) tablets every six* CEPHALEXIN 500 MG CAPSULE Take 1 capsule by mouth twice* MOMETASONE 0.1 % TOPICAL CREAM Apply to areas twice a day. * Problem List As Of Date 08/13/2018 Noted Resolved Malignant Neoplasm of Corpus Uteri, except Isth* 02/20/2010 More... History of endometrial cancer [Z85.42] INVALID FOR* Priority: C More... Rosacea [L71.9] INVALID FOR* Priority: C Well adult exam [Z00.00] INVALID FOR* Priority: D More... Eczema [L30.9] INVALID FOR* Priority: D Routine gynecological examination [Z01.419] INVALID FOR* Priority: D More... 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 Hypercalcemia [E83.52] INVALID FOR* Osteopenia [M85.80] INVALID FOR* Priority: M Medicare annual wellness visit, subsequent [Z00*INVALID FOR* Priority: E More... Class 2 obesity due to excess calories without *INVALID FOR* Priority: B Arthritis of both knees [M17.0] INVALID FOR* Priority: M More... Other instructions from your clinician: ASSESSMENT/PLAN: 1. Pain of toe of left foot - ICD9: 729.5, ICD10: M79.675 Start antibiotic Warm soaks to area twice a day Follow up with podiatry for further treatment and management. - CONSULT TO PODIATRY Prescriptions ordered this encounter Disp Refills Start End CEPHALEXIN 500 MG CAPSULE 20 c* 0 08/13/2018 08/23/2018 Route: ORAL Sig: Take 1 capsule by mouth twice daily for 10 days. Follow-up and Disposition History Recorded Encounter Status:Closed by MARLENI ARCE CNP on 08/13/18 CYTOLOGY Observed: 08/05/2018 Status: F Source: [place] 10:19 AM [facility] REPOSITORY Specimen originated from [facility] Specimen #: [id number] Submitting Physician: SOCORRO GLASS MD SPECIMEN SUBMITTED A: VAGINAL VAULT,SCREENING, FLUID FINAL DIAGNOSIS A. VAGINAL VAULT,SCREENING, FLUID Satisfactory for interpretation. Negative for intraepithelial lesion or malignancy. This specimen has been analyzed by the ThinPrep Imaging System, an automated imaging and review system, which assists the laboratory in evaluating cells on ThinPrep Pap tests. Following automated imaging, selected robert from every slide are reviewed by a plant sciences professor. BHUPENDRA Muniz(ASCP) (Electronic Signature) CLINICAL DATA HIST MALIGNANCY - DESCRIBE, HPV Testing: Yes, Reflex HPV for ASCUS Endometrial cancer 2006 Date of Last Menstrual Period: 06/02/2006 Menstrual History: HYSTERECTOMY STAINS A: VAGINAL VAULT,SCREENING, FLUID THIN PREP INTERNET ASSESSOR Madhuri Ogden M.D., Discount Clerk Date of Report: 08/13/2018 Date of Procedure: 08/05/2018 Date of Receipt: 08/06/2018 Submitted by: SOCOROR GLASS MD Location: [place] Diagnostic interpretation performed at [facility], [address] [place], [place] [address] [address]. The Pap Smear is a screening test for cervical cancer. False negative results occur with all screening tests, emphasizing the need for rescreening at recommended intervals, and clinical correlation. PROGRESS Observed: 08/05/2018 Status: COMPLETED Source: [place] 10:05 AM [facility] REPOSITORY HNO ID: [id number] Author: Socorro Glass Service: (none) Author Type: Physician Type: Progress Notes Filed: 08/05/2018 10:22 AM Note Text: Marni Acosta is a 68 year old who presents for her annual gynecologic exam without complaints. Spends winter [place] [facility] [place] Postmenopausal: Yes - DEE/BSO 2006 endometrial cancer HRT use: No. Last Pap: 2016 normal History of abnormal pap: No Last mammogram: 2017 normal History of abnormal mammogram: No Sexually active: no History of STDS: None Patient concerns for STD exposure: No. 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 Hot flashes: No Night sweats: No Vaginal dryness: No Exercise:walking Diet: balanced - trying to cut back on snacking Obstetric History T2 L2 SAB0 TAB0 Ectopic0 Multiple0 Live Births2 PAST MEDICAL HISTORY Diagnosis Date - Eczema 10/28/2014 - Endometrial cancer (HCC) 02/20/2010 Dx 2006 - Gout hx of - Hyperlipidaemia 04/21/2015 - Hypertension 05/22/2005 - Hypothyroidism - Obesity, unspecified 05/22/2005 - Rosacea 05/17/2010 PAST SURGICAL HISTORY Procedure Laterality Date - APPENDECTOMY AGE 6 - DELIVERY ONLY 1982, 1984 , low transverse x 2 - COLONOSCOP W/ OR W/O BRSH SPEC 12/01/2009 Colonoscopy, recheck 10 yrs - PAST SURGICAL HISTORY OF * 2 - TOTAL ABDOM HYSTERECTOMY 2006 BSO - US PERC CHOLECYSTOSTOMY 1995 FAMILY HISTORY Problem Relation Age of Onset - Diabetes Mother - other (dementia) Mother - Heart Father - Ischemic Heart Disease Father - Cancer Paternal Grandmother BREAST - Heart Paternal Grandfather PACEMAKER SOCIAL HISTORY Social History Substance Use Topics - Smoking status: Former Smoker - Smokeless tobacco: Never Used Comment: quit 30 years ago - Alcohol use 1.5 oz/week 1 Glasses of Wine (5oz) per week Comment: 2-3 times a week REVIEW OF SYSTEMS Abdomen: No abdominal pain, nausea, vomiting, diarrhea, or constipation. No bloating, early satiety, indigestion, or increased flatulence. Bladder: no dysuria- some urgency and nocturia 2 times /night Breast: No breast lumps, nipple d/c, overlying skin changes, redness or skin retraction Allergies and current medication updated:Yes EXAM: BP 152/80 Ht 5' 4 (1.63m) Wt 211 lb (95.7kg) LMP 06/02/2006 BMI 36.20 kg/(m2). GENERAL: pleasant, female in no apparent distress HEENT: Normocephalic, atraumatic, mucus membranes moist and no lesions NECK: Supple, full range of motion, no adenopathy and thyroid normal DERMATOLOGY: Normal, without lesions, non-icteric and non-hirsute BREAST: soft, non-tender, symmetric, no dominant mass, normal nipple-areolar complex, no lymphadenopathy and no nipple discharge ABDOMEN: soft, non-tender and no masses PELVIC: external genitalia normal, normal Bartholin's glands, urethra, [place]'s glands, no vulvar lesions, good vaginal support, physiologic discharge present, normal appearing perineal body and perianal region, cervix surgically absent BIMANUAL: no adnexal masses, non-tender and uterus surgically absent RECTOVAGINAL: deferred. NEURO: alert and oriented x3,exam grossly non-focal EXTREMITIES: normal ASSESSMENT/PLAN: 1) Health maintenance: Pap done with reflex HPV - Reviewed stopping paps and continuing with pelvic exam- pt declines at this time and would like to continue paps Mammogram ordered Mammogram up to date Nutrition, exercise and routine health maintenance exams reviewed. Calcium/Vitamin D supplementation information provided. Colon cancer screening: up to date with screening BMD: up to date 2) Follow up one year or sooner as needed Socorro Dickerson MD PROGRESS Observed: 08/05/2018 Status: COMPLETED Source: [place] 9:51 AM [facility] REPOSITORY HNO ID: [id number] Author: Paula Vásquez Ma Service: (none) Author Type: (none) Type: Progress Notes Filed: 08/05/2018 10:22 AM Note Text: Shipwright Apprentice offered: Patient declines. MIGUELITOOV Observed: 08/05/2018 Status: COMPLETED Source: [place] 9:50 AM [facility] REPOSITORY Office Visit (WOOB) KARLAMARNI Cisse ([id number]) 1950 F Date Time Provider Department 08/05/18 9:50 AM [facility] During your visit today, we recorded the following information about you: Blood pressure Weight Height 152/80 95.7 kg 1.626 m Paula Vásquez Ma 08/05/2018 10:22 AM Signed Shipwright Apprentice offered: Patient declines. Socorro Dickerson MD 08/05/2018 10:22 AM Signed Marni Brasher Karla is a 68 year old who presents for her annual gynecologic exam without complaints. Sp[place] winter in [place]- [place] [facility] [place]. Postmenopausal: Yes - DEE/BSO 2007 endometrial cancer HRT use: No. Last Pap: 2016 normal History of abnormal pap: No Last mammogram: 2018 normal History of abnormal mammogram: No Sexually active: no History of STDS: None Patient concerns for STD exposure: No. 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 Hot flashes: No Night sweats: No Vaginal dryness: No Exercise:walking Diet: balanced - trying to cut back on snacking Obstetric History T2 L2 SAB0 TAB0 Ectopic0 Multiple0 Live Births2 PAST MEDICAL HISTORY Diagnosis Date - Eczema 10/28/2014 - Endometrial cancer (HCC) 02/20/2010 Dx 2006 - Gout hx of - Hyperlipidaemia 04/21/2015 - Hypertension 05/22/2005 - Hypothyroidism - Obesity, unspecified 05/22/2005 - Rosacea 05/17/2010 PAST SURGICAL HISTORY Procedure Laterality Date - APPENDECTOMY AGE 6 - DELIVERY ONLY 1982, 1984 , low transverse x 2 - COLONOSCOP W/ OR W/O BRS SPEC 12/01/2009 Colonoscopy, recheck 10 yrs - PAST SURGICAL HISTORY OF * 2 - TOTAL ABDOM HYSTERECTOMY 2006 BSO - US PERC CHOLECYSTOSTOMY 1996 FAMILY HISTORY Problem Relation Age of Onset - Diabetes Mother - other (dementia) Mother - Heart Father - Ischemic Heart Disease Father - Cancer Paternal Grandmother BREAST - Heart Paternal Grandfather PACEMAKER SOCIAL HISTORY Social History Substance Use Topics - Smoking status: Former Smoker - Smokeless tobacco: Never Used Comment: quit 30 years ago - Alcohol use 1.5 oz/week 1 Glasses of Wine (5oz) per week Comment: 2-3 times a week REVIEW OF SYSTEMS Abdomen: No abdominal pain, nausea, vomiting, diarrhea, or constipation. No bloating, early satiety, indigestion, or increased flatulence. Bladder: no dysuria- some urgency and nocturia 2 times /night Breast: No breast lumps, nipple d/c, overlying skin changes, redness or skin retraction Allergies and current medication updated:Yes EXAM: BP 152/80 Ht 5' 4 (1.63m) Wt 211 lb (95.7kg) LMP 06/02/2006 BMI 36.20 kg/(m2). GENERAL: pleasant, female in no apparent distress HEENT: Normocephalic, atraumatic, mucus membranes moist and no lesions NECK: Supple, full range of motion, no adenopathy and thyroid normal DERMATOLOGY: Normal, without lesions, non-icteric and non-hirsute BREAST: soft, non-tender, symmetric, no dominant mass, normal nipple-areolar complex, no lymphadenopathy and no nipple discharge ABDOMEN: soft, non-tender and no masses PELVIC: external genitalia normal, normal Bartholin's glands, urethra, [place]'s glands, no vulvar lesions, good vaginal support, physiologic discharge present, normal appearing perineal body and perianal region, cervix surgically absent BIMANUAL: no adnexal masses, non-tender and uterus surgically absent RECTOVAGINAL: deferred. NEURO: alert and oriented x3,exam grossly non-focal EXTREMITIES: normal ASSESSMENT/PLAN: 1) Health maintenance: Pap done with reflex HPV - Reviewed stopping paps and continuing with pelvic exam- pt declines at this time and would like to continue paps Mammogram ordered Mammogram up to date Nutrition, exercise and routine health maintenance exams reviewed. Calcium/Vitamin D supplementation information provided. Colon cancer screening: up to date with screening BMD: up to date 2) Follow up one year or sooner as needed MD Socorro Ledezma MD 08/05/2018 10:05 AM Signed Calcium and Vitamin D Supplementation (from the National Institutes of Health Office of Dietary Supplements 2010) Calcium is required by the body for blood vessel, muscle, hormone and nerve functioning. Most of the body's calcium is stored in the bones and teeth where it supports structure and function. Bone is continuously broken down and reformed. When bone breakdown exceeds formation, especially in postmenopausal women, bone loss can increase the risk of osteoporosis and fractures. In addition to low calcium intake, women who smoke, have a family history of osteoporosis, are thin, or , or who take certain medications such as cancer chemotherapy, seizure mediations and steroids are at increased risk of osteoporosis. The calcium requirements in women change with age. The National Institutes of Health (NIH) recommends: 1000mg elemental calcium for premenopausal women age 19-50 1200mg elemental calcium for postmenopausal women and all women over 50 Milk, yogurt, and cheese are rich natural sources of calcium and are the major food contributors in the [place]. For example, 8oz of milk (whole, lowfat or skim) contains about 300mg calcium, 8oz of yogurt contains 415mg. Nondairy sources include salmon and sardines and vegetables, such as Vietnamese cabbage, kale, and broccoli. Foods fortified with calcium include many fruit juices, tofu and cereals. For more food calcium content information, visit http://ods.od.nih.gov/factsheets/calcium. Calcium supplements come in several different forms. Remember that the recommendations are for millgrams (mg) of elemental calcium which may be less than the total weight of the supplement. The amount of elemental calcium is required to be printed on the label. Calcium carbonate is the least expensive form. It must be taken on a full stomach to be properly absorbed. Some patients may experience gas or constipation. Calcium phosphate and calcium citrate may be taken either with or without food and tend to have less side effects but are generally more expensive. Because of its ability to neutralize stomach acid, calcium carbonate is found in some zvus-csg-xbugxty antacid products, such as Tums? and Rolaids?. Depending on its strength, each chewable pill or softchew provides 200 to 400 mg of elemental calcium. The percentage of calcium absorbed depends on the total amount of elemental calcium consumed at one time. Absorption is highest in doses <500mg. So a woman who takes 1,000mg/day of calcium from supplements should split the dose and take 500mg at two separate times during the day. Too much calcium can cause kidney stones, constipation, difficulty absorbing other nutrients and calcium buildup in blood vessels. Women under 50 should not exceed 2500mg/day (2000mg/day for women over 50) of calcium from food and supplements. Excessive alcohol and caffeine intake can inhibit absorption of calcium. Calcium can reduce the absorption of some medications if taken at the same time of day (bisphosphonates, thyroid medication, Phenytoin and other seizure medications, some antibiotics and iron supplements). Vitamin D promotes calcium absorption in the gut and maintains adequate blood levels of calcium and phosphate for normal bone growth and bone remodeling. Vitamin D also helps regulate cell growth as well as nerve, muscle and immune system function. Vitamin D is produced in the skin as a result of ultraviolet sunlight rays and must be altered in the liver and kidney to become its active form. Recommended intake according to the National Institutes of Health is 600 International Units (IU) for girls and women ages 1-70 and 800 IU for women over 70. Very few foods in nature contain vitamin D. The flesh of fatty fish (such as salmon, tuna, and mackerel) and fish liver oils are among the best sources. Small amounts of vitamin D are found in beef liver, cheese, mushrooms and egg yolks. Most people meet at least some of their vitamin D needs through exposure to sunlight. Season, time of day, length of day, cloud cover, smog, skin melanin content, and sunscreen are among the factors that affect UV radiation exposure and vitamin D synthesis. Despite the importance of the sun for vitamin D synthesis, it is prudent to limit exposure of skin to sunlight and avoid tanning beds. UV radiation is a carcinogen responsible for most of the estimated 1.5 million skin cancers that occur annually in the [place]. Lifetime cumulative UV damage to skin is also responsible for some age-associated dryness and other cosmetic changes. In supplements and fortified foods, vitamin D is available in two forms, D2 (ergocalciferol) and D3 (cholecalciferol). The two are equivalent at normal supplement doses. For women who require high supplement doses because of vitamin D deficiency, D3 may work better to raise blood levels. Some medications can prevent proper absorption of Vitamin D. These include laxatives, corticosteroids like prednisone, the seizure drugs phenobarbital and phenytoin, the weight-loss drug orlistat ( Xenical? and AlliTM) and the cholesterol-lowering drug cholestyramine (Questran?, LoCholest?, and Prevalite?). Talk to your doctor about adjusting your recommended daily vitamin D dosage if you take these medications. You should not exceed 4000 mg of vitamin D supplementation daily unless specifically prescribed by your doctor. ACOG Screening Guidelines (2015) The following health screening schedule is recommended by the [employer] (ACOG). Some of these tests may be ordered or performed by your primary care doctor. Pap test screening The pap test looks at cells on the cervix (the opening from the vagina to the uterus) to look for cancer or pre-cancerous changes. These changes are caused by the human papillomavirus (HPV). Studies estimate that half of all women will test positive for this virus within 3 years of starting sexual activity. For young women with a normal immune system, 90% of HPV infections will resolve within 2 years. There is a vaccine available against some forms of HPV. This is recommended for girls and women age 9-26 and is a series of 3 injections over 6 months. Because this vaccine does not protect against all HPV types which can cause cervical cancer, women who received the vaccine still need pap tests. Pap smear screening should be started at age 21. The pap test should be done every 3 years from age 21-29. From age 30-65, pap smears can be done every 5 years if HPV test is negative or every 3 years if HPV testing is not done. For women over the age of 65, ACOG recommends against screening women who have had adequate prior screening and are not otherwise at high risk for cervical cancer. Women who have had a hysterectomy also do not need routine pap smear screening unless the pap smear was done for a cervical cancer or moderate to severe dysplasia. Breast cancer screening Mammogram should be performed every 1-2 years starting at age 40 and every year starting at age 50. Screening may be started earlier depending on family history. Cholesterol screening Lipid panel (cholesterol test) should be checked every 5 years starting at age 45. Diabetes screening Fasting glucose (blood sugar) test should be performed every 3 years starting at age 45. Colorectal cancer screening Starting at age 50, women should have a screening colonoscopy at least every 10 years. Screening may be started earlier depending on family history. Thyroid screening Thyroid function test (TSH) should be checked every 5 years starting at age 50. Bone mineral density screening All postmenopausal women age 65 and over and postmenopausal women with risk factors for osteoporosis should have a bone mineral density test performed. Risk factors include race, family history of osteoporosis, personal history of fractures, poor nutrition, smoking, heavy alcohol use, early menopause, low calcium intake and low body weight. Certain medical conditions and long-term use of some medications may also increase risk. Body max Index (BMI) Your body mass index (BMI) is a measure of your body fat based on your weight and height. The number that is calculated will tell you if you fall into the normal, overweight or obese category. BMI Table ? Normal weight: BMI is between 19 and 24.9 ? Overweight: BMI is between 25 and 29.9 ? Obese: BMI is 30 and above Why is BMI important? Being overweight or obese (BMI over 25) can exacerbate or put you at risk for getting certain diseases, like the ones listed below: ? Arthritis ? Asthma ? Cancer ? Diabetes Mellitus Type 2 ? Heart Attack ? High blood pressure ? Hypertension ? Hyperlipidemia ? Kidney failure ? Other Lung diseases ? Sleep Apnea ? Stroke How can I lose weight: Choosing healthy foods in small portions and exercising regularly is a good way to start. The following are a few tips: ? Choose foods and snacks higher in protein and fiber. ? Reduce the amount of sugary drinks (like soda) and snacks (cookies, sweets, etc) ? Cut back on the amount of carbohydrates eaten daily (bread, pasta, rice, cakes) ? Drink at least 8 glasses of water per day ? sometimes thirst feels like hunger ? stay hydrated ? Chew your food slowly to savor the taste and allow the signal that you are full to register in your brain Exercise/Activity ? Exercise improves your blood flow and circulation, enhances your mood and can you to maintain or lose weight. ? A brisk walk for 30 mins or longer 4-5 times per week is recommended but you can also use DVD's at home such as Walk Away the Pounds, Terrance exercises, Yoga and others to get some variety. When do I need a referral? If you have tried all of the above and have not lost any weight, then you should ask your provider for a referral to a lead burner apprentice or medical weight financial management who can help you reach your goals for being at your ideal body weight. Many women experience vaginal dryness which can cause discomfort with exercise and sexual activity, especially vaginal intercourse. Common causes of vaginal dryness include menopause, , control pills, cancer treatments and other medications. There are many rxny-ynw-lkspatx products that are available to treat this condition. Lubricants are a temporary measure to minimize friction and irritation and allow for vaginal intercourse. There are different types of lubricants. Water-based lubricants dry quickly and usually will need to be reapplied during sexual activity. Oil-based lubricants are not compatible with condoms. Silicone-based lubricants should be used with caution in the shower as they can make floors slippery. Household food oils such as olive oil, coconut oil, corn oil and Cristco may increase the risk of vaginal infections such as bacterial vaginosis and yeast. Pre-seed is designed for patients trying to conceive as it does not affect sperm motility. You may need to try several different brands of lubricant until you find the one that works best for you. When choosing a lubricant, avoid those that contain perfumes, flavors or ?warming? ingredients. Benzyl alcohol and glycerin can cause drying and irritation and parabens may be harmful to health. Look for 510(k) Clearance which means that all ingredients are considered safe by the FDA. You can search for approved products on the FDA website at http://www.accessdata.fda.gov/scripts/cdrh/cfdocs/cfpmn/pmn.cfm. Examples of 510(k) cleared lubricants include Uberlube, Sylk, Good Clean Love and Astroglide. Vaginal moisturizers such as Luvena and Replens are designed for regular use several times a week for long-term relief of vaginal dryness. Some formulations contain a pre-biotic to help maintain vaginal pH and protect against bacterial vaginosis and yeast. For post-menopausal women who have persistent vaginal dryness, prescription treatments are available including vaginal estrogen and vaginal laser therapy. Talk to your doctor if your symptoms are not resolved by lubricant or moisturizer use. Shobha Blake 08/14/2018 9:22 AM Signed Pap logged and normal pap letter sent to patient. Shobha Hayden Referring Provider: SELF [[id number]] Allergies As of Date: 08/05/2018 Noted Allergy Reaction FLAGYL (METRONIDAZOLE HCL) 05/22/2005 2 - Rash Comments: Pt tolerates topical. Refer to phone note on 03-12-07. Date Reviewed: 08/05/2018 Reviewed by: Socorro Glass - Fully Assessed Reason for Visit: Yearly Exam [187] Primary Visit Diagnosis:Hx of cancer of endometrium [Z85.42] Other Visit Diagnoses:Encounter for screening mammogram for malignant neoplasm of breast [Z12.31] Encounter for screening for malignant neoplasm of vagina [Z12.72] Order(s):CHARLENE SCREENING [[id number]] Order #: [id number] FUTURE PAP FLUID VAGINAL VAULT SCREENING [[id number]] Order #: [id number]. #:[id number] Prescriptions as of 08/05/2018 Sig: * CALCIUM + D 600 MG (1,500 MG)* taking 5 per week LISINOPRIL 20 MG TABLET Take 1 tablet by mouth once d* ALLOPURINOL 300 MG TABLET Take 1 tablet by mouth once d* RANITIDINE 150 MG TABLET Take 1 tablet by mouth twice * OMEGA-3 FATTY ACIDS 1,000 MG * Take 2 capsules by mouth twic* KETOCONAZOLE 2 % SHAMPOO Apply to affected area once * AZELAIC ACID 15 % TOPICAL GEL Apply to affected area. HYDROCORTISONE 2.5 % TOPICAL * Apply 1 application to affect* MOMETASONE 0.1 % TOPICAL CREAM Apply to areas twice a day. * CALCIUM CARBONATE 550 MG-MAGN* Take 1 tablet by mouth as nee* * MULTIVITAMIN TABLET Take one(1) tablet daily. * TYLENOL EXTRA STRENGTH 500 MG* Take two(2) tablets every six* Problem List As Of Date 08/05/2018 Noted Resolved Malignant Neoplasm of Corpus Uteri, except Isth* 02/20/2010 More... History of endometrial cancer [Z85.42] INVALID FOR* Priority: C More... Rosacea [L71.9] INVALID FOR* Priority: C Well adult exam [Z00.00] INVALID FOR* Priority: D More... Eczema [L30.9] INVALID FOR* Priority: D Routine gynecological examination [Z01.419] INVALID FOR* Priority: D More... 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 Hypercalcemia [E83.52] INVALID FOR* Osteopenia [M85.80] INVALID FOR* Priority: M Medicare annual wellness visit, subsequent [Z00*INVALID FOR* Priority: E More... Class 2 obesity due to excess calories without *INVALID FOR* Priority: B Arthritis of both knees [M17.0] INVALID FOR* Priority: M More... Other instructions from your clinician: Calcium and Vitamin D Supplementation (from the National Institutes of Health Office of Dietary Supplements 2011) Calcium is required by the body for blood vessel, muscle, hormone and nerve functioning. Most of the body's calcium is stored in the bones and teeth where it supports structure and function. Bone is continuously broken down and reformed. When bone breakdown exceeds formation, especially in postmenopausal women, bone loss can increase the risk of osteoporosis and fractures. In addition to low calcium intake, women who smoke, have a family history of osteoporosis, are thin, or , or who take certain medications such as cancer chemotherapy, seizure mediations and steroids are at increased risk of osteoporosis. The calcium requirements in women change with age. The National Institutes of Health (NIH) recommends: 1000mg elemental calcium for premenopausal women age 19-50 1200mg elemental calcium for postmenopausal women and all women over 50 Milk, yogurt, and cheese are rich natural sources of calcium and are the major food contributors in the [place]. For example, 8oz of milk (whole, lowfat or skim) contains about 300mg calcium, 8oz of yogurt contains 415mg. Nondairy sources include salmon and sardines and vegetables, such as Vietnamese cabbage, kale, and broccoli. Foods fortified with calcium include many fruit juices, tofu and cereals. For more food calcium content information, visit http://ods.od.nih.gov/factsheets/calcium. Calcium supplements come in several different forms. Remember that the recommendations are for millgrams (mg) of elemental calcium which may be less than the total weight of the supplement. The amount of elemental calcium is required to be printed on the label. Calcium carbonate is the least expensive form. It must be taken on a full stomach to be properly absorbed. Some patients may experience gas or constipation. Calcium phosphate and calcium citrate may be taken either with or without food and tend to have less side effects but are generally more expensive. Because of its ability to neutralize stomach acid, calcium carbonate is found in some mkvo-ekg-mkmbylh antacid products, such as Tums? and Rolaids?. Depending on its strength, each chewable pill or softchew provides 200 to 400 mg of elemental calcium. The percentage of calcium absorbed depends on the total amount of elemental calcium consumed at one time. Absorption is highest in doses <500mg. So a woman who takes 1,000mg/day of calcium from supplements should split the dose and take 500mg at two separate times during the day. Too much calcium can cause kidney stones, constipation, difficulty absorbing other nutrients and calcium buildup in blood vessels. Women under 50 should not exceed 2500mg/day (2000mg/day for women over 50) of calcium from food and supplements. Excessive alcohol and caffeine intake can inhibit absorption of calcium. Calcium can reduce the absorption of some medications if taken at the same time of day (bisphosphonates, thyroid medication, Phenytoin and other seizure medications, some antibiotics and iron supplements). Vitamin D promotes calcium absorption in the gut and maintains adequate blood levels of calcium and phosphate for normal bone growth and bone remodeling. Vitamin D also helps regulate cell growth as well as nerve, muscle and immune system function. Vitamin D is produced in the skin as a result of ultraviolet sunlight rays and must be altered in the liver and kidney to become its active form. Recommended intake according to the National Institutes of Health is 600 International Units (IU) for girls and women ages 1-70 and 800 IU for women over 70. Very few foods in nature contain vitamin D. The flesh of fatty fish (such as salmon, tuna, and mackerel) and fish liver oils are among the best sources. Small amounts of vitamin D are found in beef liver, cheese, mushrooms and egg yolks. Most people meet at least some of their vitamin D needs through exposure to sunlight. Season, time of day, length of day, cloud cover, smog, skin melanin content, and sunscreen are among the factors that affect UV radiation exposure and vitamin D synthesis. Despite the importance of the sun for vitamin D synthesis, it is prudent to limit exposure of skin to sunlight and avoid tanning beds. UV radiation is a carcinogen responsible for most of the estimated 1.5 million skin cancers that occur annually in the [place]. Lifetime cumulative UV damage to skin is also responsible for some age-associated dryness and other cosmetic changes. In supplements and fortified foods, vitamin D is available in two forms, D2 (ergocalciferol) and D3 (cholecalciferol). The two are equivalent at normal supplement doses. For women who require high supplement doses because of vitamin D deficiency, D3 may work better to raise blood levels. Some medications can prevent proper absorption of Vitamin D. These include laxatives, corticosteroids like prednisone, the seizure drugs phenobarbital and phenytoin, the weight-loss drug orlistat ( Xenical? and AlliTM) and the cholesterol-lowering drug cholestyramine (Questran?, LoCholest?, and Prevalite?). Talk to your doctor about adjusting your recommended daily vitamin D dosage if you take these medications. You should not exceed 4000 mg of vitamin D supplementation daily unless specifically prescribed by your doctor. ACOG Screening Guidelines (2015) The following health screening schedule is recommended by the [place] [employer] (ACOG). Some of these tests may be ordered or performed by your primary care doctor. Pap test screening The pap test looks at cells on the cervix (the opening from the vagina to the uterus) to look for cancer or pre-cancerous changes. These changes are caused by the human papillomavirus (HPV). Studies estimate that half of all women will test positive for this virus within 3 years of starting sexual activity. For young women with a normal immune system, 90% of HPV infections will resolve within 2 years. There is a vaccine available against some forms of HPV. This is recommended for girls and women age 9-26 and is a series of 3 injections over 6 months. Because this vaccine does not protect against all HPV types which can cause cervical cancer, women who received the vaccine still need pap tests. Pap smear screening should be started at age 21. The pap test should be done every 3 years from age 21-29. From age 30-65, pap smears can be done every 5 years if HPV test is negative or every 3 years if HPV testing is not done. For women over the age of 65, ACOG recommends against screening women who have had adequate prior screening and are not otherwise at high risk for cervical cancer. Women who have had a hysterectomy also do not need routine pap smear screening unless the pap smear was done for a cervical cancer or moderate to severe dysplasia. Breast cancer screening Mammogram should be performed every 1-2 years starting at age 40 and every year starting at age 50. Screening may be started earlier depending on family history. Cholesterol screening Lipid panel (cholesterol test) should be checked every 5 years starting at age 45. Diabetes screening Fasting glucose (blood sugar) test should be performed every 3 years starting at age 45. Colorectal cancer screening Starting at age 50, women should have a screening colonoscopy at least every 10 years. Screening may be started earlier depending on family history. Thyroid screening Thyroid function test (TSH) should be checked every 5 years starting at age 50. Bone mineral density screening All postmenopausal women age 65 and over and postmenopausal women with risk factors for osteoporosis should have a bone mineral density test performed. Risk factors include race, family history of osteoporosis, personal history of fractures, poor nutrition, smoking, heavy alcohol use, early menopause, low calcium intake and low body weight. Certain medical conditions and long-term use of some medications may also increase risk. Body max Index (BMI) Your body mass index (BMI) is a measure of your body fat based on your weight and height. The number that is calculated will tell you if you fall into the normal, overweight or obese category. BMI Table ? Normal weight: BMI is between 19 and 24.9 ? Overweight: BMI is between 25 and 29.9 ? Obese: BMI is 30 and above Why is BMI important? Being overweight or obese (BMI over 25) can exacerbate or put you at risk for getting certain diseases, like the ones listed below: ? Arthritis ? Asthma ? Cancer ? Diabetes Mellitus Type 2 ? Heart Attack ? High blood pressure ? Hypertension ? Hyperlipidemia ? Kidney failure ? Other Lung diseases ? Sleep Apnea ? Stroke How can I lose weight: Choosing healthy foods in small portions and exercising regularly is a good way to start. The following are a few tips: ? Choose foods and snacks higher in protein and fiber. ? Reduce the amount of sugary drinks (like soda) and snacks (cookies, sweets, etc) ? Cut back on the amount of carbohydrates eaten daily (bread, pasta, rice, cakes) ? Drink at least 8 glasses of water per day ? sometimes thirst feels like hunger ? stay hydrated ? Chew your food slowly to savor the taste and allow the signal that you are full to register in your brain Exercise/Activity ? Exercise improves your blood flow and circulation, enhances your mood and can you to maintain or lose weight. ? A brisk walk for 30 mins or longer 4-5 times per week is recommended but you can also use DVD's at home such as Walk Away the Pounds, Terrance exercises, Yoga and others to get some variety. When do I need a referral? If you have tried all of the above and have not lost any weight, then you should ask your provider for a referral to a lead burner apprentice or medical weight financial management who can help you reach your goals for being at your ideal body weight. Many women experience vaginal dryness which can cause discomfort with exercise and sexual activity, especially vaginal intercourse. Common causes of vaginal dryness include menopause, , control pills, cancer treatments and other medications. There are many sbgz-ksj-hexxzah products that are available to treat this condition. Lubricants are a temporary measure to minimize friction and irritation and allow for vaginal intercourse. There are different types of lubricants. Water-based lubricants dry quickly and usually will need to be reapplied during sexual activity. Oil-based lubricants are not compatible with condoms. Silicone-based lubricants should be used with caution in the shower as they can make floors slippery. Household food oils such as olive oil, coconut oil, corn oil and Cristco may increase the risk of vaginal infections such as bacterial vaginosis and yeast. Pre-seed is designed for patients trying to conceive as it does not affect sperm motility. You may need to try several different brands of lubricant until you find the one that works best for you. When choosing a lubricant, avoid those that contain perfumes, flavors or ?warming? ingredients. Benzyl alcohol and glycerin can cause drying and irritation and parabens may be harmful to health. Look for 510(k) Clearance which means that all ingredients are considered safe by the FDA. You can search for approved products on the FDA website at http://www.accessdata.fda.gov/scripts/cdrh/cfdocs/cfpmn/pmn.cfm. Examples of 510(k) cleared lubricants include Uberlube, Sylk, Good Clean Love and Astroglide. Vaginal moisturizers such as Luvena and Replens are designed for regular use several times a week for long-term relief of vaginal dryness. Some formulations contain a pre-biotic to help maintain vaginal pH and protect against bacterial vaginosis and yeast. For post-menopausal women who have persistent vaginal dryness, prescription treatments are available including vaginal estrogen and vaginal laser therapy. Talk to your doctor if your symptoms are not resolved by lubricant or moisturizer use. Disposition: Return in 1 year (on 08/05/2019) for Annual Exam. Follow-up and Disposition History Recorded Letter Text Socorro Glass MD [facility] [address], [place] [address] Marni Acosta [address] [place] [address] 08/14/2018 [facility]: [id number] Dear Mrani, We are pleased to inform you that your recent Pap Test was within normal limits. Because Pap tests are so effective in the early detection of cervical cancer, you are encouraged to continue having the test at regular intervals. You will be due for a 1 year Gynecological Exam after this date 08/05/2019. If you have any questions regarding the above information, do not hesitate to call our office at between the hours of 8:00 a.m. and 5:00 p.m. Sincerely, Socorro Glass MD Encounter Status:Closed by SOCORRO GLASS MD on 08/05/18 [facility] Observed: 07/06/2018 Status: COMPLETED Source: [place] 12:01 PM [facility] REPOSITORY [facility] ID: [id number] Author: Mammography Coordinator Service: (none) Author Type: Physician Type: Letter Filed: 07/07/2018 11:32 PM Note Text: July 06, 2018 PID: [id number] Marni Acosta [address] [place] [address] Dear Ms. Acosta, We are pleased to inform you that the results of your recent breast imaging exam on 07/06/2018 are normal. Early detection of cancer is very important. We also understand recommendations regarding breast cancer screening are controversial. Please discuss with your primary care provider which strategy is best for you and whether a mammogram is right for you. Your imaging studies and report will be kept on file at [facility] as part of your permanent medical record and are available for your continuing care. Thank you for allowing us to help in meeting your health care needs. Sincerely, Dr. Hartley Interpreting Radiologist [facility] (Normal over 40) [facility] SCREENING Observed: 07/06/2018 Status: F Source: [place] 9:41 AM [facility] MAIN CAMP[facility] REPOSITORY * * *Final Report* * * DATE OF EXAM: Jul 06 2018 9:41AM [facility] [id number] - [facility] SCREENING / PROCEDURE REASON: Encounter for screening mammogram for malignant neoplasm of breast * * * * Physician Interpretation * * * * RESULT: #[id number] - [facility] SCREENING BILATERAL DIGITAL SCREENING MAMMOGRAM WITH CAD: 07/06/2018 HISTORY: Encounter For Screening Mammogram For Malignant Neoplasm Of Breast\ /patient reports no breast symptoms /priors available for comparison. RESULT: TECHNIQUE: The study was acquired using full field digital technology and interpreted from soft copy. Current study was also evaluated with a Computer Aided Detection (CAD). Comparison is made to exams dated: 07/03/2017 mammogram, 07/01/2016 mammogram, and 06/28/2015 mammogram - [facility]. There are scattered fibroglandular elements in both breasts. There are post operative findings in the left breast. No significant masses, calcifications, or other findings are seen in either breast. There has been no significant interval change. IMPRESSION: NEGATIVE There is no mammographic evidence of malignancy. A 1 year screening mammogram is recommended. Elliot torres/michael:07/06/2018 12:01:53 Electronic Industrial Controls Mechanic: Ledy FRANCOIS(R)(M), [facility] letter sent: Normal over 40 Mammogram BI-RADS: 1 Negative Statement Processor: Michael Transcribe Date/Time: Jul 06 2018 9:23A Dictated by: ELLIOT HARTLEY MD This examination was interpreted and the report reviewed and electronically signed by: ELLIOT HARTLEY MD on Jul 06 2018 12:01PM EST [id number] CALCIUM, TOTAL Collected: 06/29/2018 Status: F Source: [place] 9:28 AM [facility] MAIN CAMP[facility] REPOSITORY TYPE CODE TESTS RESULT OUT OF RANGE REFERENCE UNITS LAB CA 8.5-10.2 mg/dL High Calcium, 10.7 Total Performed By: #### CA #### [facility] [address] [place], [place] [address] BASIC METABOLIC PANL Collected: 06/01/2018 Status: F Source: [place] 12:06 PM [facility] REPOSITORY TYPE CODE TESTS RESULT OUT OF REFERENCE UNITS RANGE LAB GLU 74-99 mg/dL Glucose 97 Result Comment: The [place] [employer] (ADA) provides guidance for cutoff values for fasting glucose and random glucose. The ADA defines fasting as no caloric intake for at least 8 hours. Fas ting plasma glucose results between 100 to 125 mg/dL indicate increased risk for diabetes (prediabetes). Fasting plasma glucose results greater than or equal to 126 mg/dL meet the criteria for diagnosis of diabetes. In the absence of unequivocal hyperglycemia, results should be confirmed by repeat testing. In a patient with classic symptoms of hyperglycemia or hyperglycemic crisis, random plasma glucose results greater than or equal to 200 mg/dL meet the criteria for diagnosis of diabetes. Reference: Standards of Medical Care in Diabetes 2016, [place] [employer]. Diabetes Care. 2016.39(Suppl 1). LAB BUN 7-21 mg/dL BUN 15 LAB CRET 0.58-0.96 mg/dL Creatinine High 0.97 LAB NA 136-144 mmol/L Low Sodium 135 LAB K 3.7-5.1 mmol/L Potassium 4.4 LAB CL 97-105 mmol/L Chloride 100 LAB CO2 22-30 mmol/L Low CO2 20 LAB AGAP 9-18 mmol/L Anion Gap 15 LAB CA 8.5-10.2 mg/dL Calcium, High Total 11.4 LAB GFRAA eGFR- Amer. >60 LAB GFRNAA . eGFR-All Other Races 57 Result Comment: eGFR (Estimated GFR) Units of measure: mL/min/1.73 meters squared eGFR is derived from the reexpressed MDRD Study equation using the following parameters: serum creatinine, age, gender and race. The creatinine assay has been calibrated to be traceable to IDMS. An eGFR <60 mL/min/1.73m2 for >3 months is consistent with chronic kidney disease. Refer to KDOQI guidelines for clinical interpretation. In patients with unstable renal function, e.g. those with acute kidney injury, the eGFR may not accurately reflect actual GFR. Performed By: #### BMP #### [facility] [address] [place], [place] [address] PROGRESS Observed: 06/01/2018 Status: COMPLETED Source: [place] 10:35 AM [facility] [place] REPOSITORY [facility] ID: [id number] Author: Cecile Landis Service: (none) Author Type: Physician Type: Progress Notes Filed: 06/01/2018 12:09 PM Note Text: Subjective Marni Acosta is a 68 year old female who presents for hypercalcemia/hyperparathyroidism and Osteopenia follow up. Time course of hypercalcemia: 2017 Calcium intake: 600 mg BID Vit D intake: 400 IU daily in calcium supplement Medications that impact calcium: No Symptoms of hypercalcemia: Fracture: No Bone pain: No Kidney stones: No Arthralgias: No Memory loss: No Polydypsia and polyuria: No constipation: No Previous work up: elevated PTH and normal Vitamin D level Prior head and neck radiation: No Family history of endocrine malignancies or failed neck surgery: No Last DXA- bone density is normal Menopause at age 50 She underwent hysterectomy at age 57. No chemo or XRT REVIEW OF SYSTEMS: GENERAL: Fever - No Changes in weight - No NEUROLOGICAL: Numbness, tingling or sensation of pins and needles - No Headaches-No HEAD, EYES, EARS, NOSE, AND THROAT: Changes in hearing - No Changes in vision - No CARDIOVASCULAR: Chest pain or pressure - No Palpitations - No RESPIRATORY: Cough - No Wheezing - No Shortness of breath - No GASTROINTESTINAL: Abdominal discomfort - No Nausea - No Vomiting - No EXTREMITY: Edema (swelling) - No Claudication-no MUSCULOSKELETAL: Muscle pain or ache - No Arthralgia-No Skin: Rash - No ENDOCRINE: Diabetes - No Thyroid disorder - No PSYCHOLOGICAL: Depression - No ALLERGIES: ALLERGIES Allergen Reactions - Flagyl [Metronidazo* Rash Pt tolerates topical. Refer to phone note on 03-12-07. MEDICATIONS: Current Outpatient Prescriptions on File Prior to Visit: lisinopril (ZESTRIL, PRINIVIL) 10 mg tablet Take 1 tablet by mouth once daily. allopurinol (ZYLOPRIM) 300 mg tablet Take 1 tablet by mouth once daily. ranitidine (ZANTAC) 150 mg tablet Take 1 tablet by mouth twice daily. omega-3 fatty acids 1,000 mg cap Take 2 capsules by mouth twice daily. ketoconazole (NIZORAL) 2 % shampoo Apply to affected area once daily as needed. Azelaic Acid (FINACEA) 15 % gel Apply to affected area. hydrocortisone 2.5 % cream Apply 1 application to affected area twice daily. Apply to areas weekly as needed. mometasone (ELOCON) 0.1 % cream Apply to areas twice a day. On for 4 days and off for 3 days. Repeat as needed. Multivitamin ORAL Tab Take one(1) tablet daily. Calcium Carbonate-Vitamin D2 (CALCIUM + D) 600-200 mg-unit ORAL Tab Take one(1) tablet daily. acetaminophen (TYLENOL EXTRA STRENGTH) 500 mg ORAL Tab Take two(2) tablets every six(6) hours as needed for pain. Calcium Carbonate-Mag Hydroxid (ROLAIDS) 550-110 mg Chew Take 1 tablet by mouth as needed. No current facility-administered medications on file prior to visit. PAST MEDICAL HISTORY Diagnosis Date - Eczema 10/28/2014 - Endometrial cancer (HCC) 02/20/2010 Dx 2006 - Gout hx of - Hyperlipidaemia 04/21/2015 - Hypertension 05/22/2005 - Obesity, unspecified 05/22/2005 - Rosacea 05/17/2010 PHYSICAL EXAM: 06/01/18 1035 06/01/18 1059 BP: 151/84 134/86 BP Site: Left Arm Left Arm BP Position: Sitting Sitting BP Cuff Size: Large Adult Regular Adult Pulse: 67 SpO2: 95% Weight: 96.6 kg (213 lb) Height: 164 cm (5' 4.57) LMP 06/02/2006 General: Alert and oriented x3, no acute distress Eyes: anicteric sclera, Extraocular motions intact Oral: Mucous membranes moist, no erythema Neck: supple, no cervical lymphadenopathy Thyroid: normal size, normal texture, no palpable nodules Heart regular rate and rhythm Chest: breathing unlabored, lungs clear to ausculation, no wheezing, rales, rhonchi Abdomen: normal bowel sounds, non tender to palpation, no masses Neuro: gait normal, sensation grossly normal, normal DTR's at patella Extremities: Good peripheral pulses, no edema Skin: No rash/erthema LAB: Glucose (mg/dL) Date Value 04/10/2018 86 Potassium (mmol/L) Date Value 04/10/2018 4.5 Sodium (mmol/L) Date Value 04/10/2018 139 Chloride (mmol/L) Date Value 04/10/2018 100 CO2 (mmol/L) Date Value 04/10/2018 24 Creatinine (mg/dL) Date Value 04/10/2018 1.09 BUN (mg/dL) Date Value 04/10/2018 16 Anion Gap (mmol/L) Date Value 04/10/2018 15 Calcium (mg/dL) Date Value 04/10/2018 11.2 Protein, Total (g/dL) Date Value 10/14/2017 7.6 Albumin (g/dL) Date Value 10/14/2017 4.5 Bilirubin, Total (mg/dL) Date Value 10/14/2017 0.4 Alkaline Phosphatase (U/L) Date Value 10/14/2017 116 AST (U/L) Date Value 10/14/2017 21 ALT (U/L) Date Value 10/14/2017 22 Vitamin D 25 Hydroxy (ng/mL) Date Value 10/14/2017 48.8 ] Imaging DXA- April 2018 LUMBAR SPINE: ?The bone mineral density from L1 through L4 is 1.243 grams per square centimeter which yields a T-score of 1.8. ?This is 4% improved. LEFT HIP: ?The bone mineral density of the total region of the hip is 1.032 grams per square centimeter which yields a T-score of 0.7. ? ?. LEFT FEMORAL NECK: ?The bone mineral density of the femoral neck is 0.752 grams per square centimeter which yields a T-score of -0.9. ? ?. LEFT FOREARM: ?The bone mineral density of the radius 1/3 is 0.719 grams per square centimeter which yields a T-score of 0.4 . ?This is 7.6% improved. 10-year Fracture Risk (FRAX): Major osteoporotic fracture risk 7.6% Hip fracture risk 0.6% ASSESSMENT/PLAN: 1) Hypercalcemia 2) Hyperparathyroidism 3) Osteopenia Patient is asymptomatic No hx of fractures/nephrolithiasis Most calcium level was 11.2 in April 2018 Recheck calcium level and renal function If the repeat calcium is elevated, then will decrease calcium supplement to one a day 24 hour urine calcium was normal vitamin D level is optimal We reviewed the surgical criteria for parathyroidectomy At this time, the only criteria for surgery is her calcium level My suggestion is to monitor calcium level and renal function Probability for Major osteoporotic fracture risk 7.6% and Hip fracture risk 0.6%, therefore, no indication to start bisphosphonates at this time Suggested the patient to stay well hydrated I will send patient a message in my chart once the lab results become available. Follow up to be determined Cecile Landis MD 06/01/18 [place] Observed: 06/01/2018 Status: COMPLETED Source: [place] 10:25 AM [facility] REPOSITORY Office Visit (JANET) MARNI ACOSTA ([id number]) 1950 F Date Time Provider Department 06/01/18 10:25 AM CECILE LANDIS During your visit today, we recorded the following information about you: Pulse Blood pressure Weight Height 67/minute 134/86 96.6 kg 1.64 m Cecile Landis MD 06/01/2018 12:09 PM Signed Subjective Marni Lowet is a 68 year old female who presents for hypercalcemia/hyperparathyroidism and Osteopenia follow up. Time course of hypercalcemia: 2016 Calcium intake: 600 mg BID Vit D intake: 400 IU daily in calcium supplement Medications that impact calcium: No Symptoms of hypercalcemia: Fracture: No Bone pain: No Kidney stones: No Arthralgias: No Memory loss: No Polydypsia and polyuria: No constipation: No Previous work up: elevated PTH and normal Vitamin D level Prior head and neck radiation: No Family history of endocrine malignancies or failed neck surgery: No Last DXA- bone density is normal Menopause at age 50 She underwent hysterectomy at age 57. No chemo or XRT REVIEW OF SYSTEMS: GENERAL: Fever - No Changes in weight - No NEUROLOGICAL: Numbness, tingling or sensation of pins and needles - No Headaches-No HEAD, EYES, EARS, NOSE, AND THROAT: Changes in hearing - No Changes in vision - No CARDIOVASCULAR: Chest pain or pressure - No Palpitations - No RESPIRATORY: Cough - No Wheezing - No Shortness of breath - No GASTROINTESTINAL: Abdominal discomfort - No Nausea - No Vomiting - No EXTREMITY: Edema (swelling) - No Claudication-no MUSCULOSKELETAL: Muscle pain or ache - No Arthralgia-No Skin: Rash - No ENDOCRINE: Diabetes - No Thyroid disorder - No PSYCHOLOGICAL: Depression - No ALLERGIES: ALLERGIES Allergen Reactions - Flagyl [Metronidazo* Rash Pt tolerates topical. Refer to phone note on 03-12-07. MEDICATIONS: Current Outpatient Prescriptions on File Prior to Visit: lisinopril (ZESTRIL, PRINIVIL) 10 mg tablet Take 1 tablet by mouth once daily. allopurinol (ZYLOPRIM) 300 mg tablet Take 1 tablet by mouth once daily. ranitidine (ZANTAC) 150 mg tablet Take 1 tablet by mouth twice daily. omega-3 fatty acids 1,000 mg cap Take 2 capsules by mouth twice daily. ketoconazole (NIZORAL) 2 % shampoo Apply to affected area once daily as needed. Azelaic Acid (FINACEA) 15 % gel Apply to affected area. hydrocortisone 2.5 % cream Apply 1 application to affected area twice daily. Apply to areas weekly as needed. mometasone (ELOCON) 0.1 % cream Apply to areas twice a day. On for 4 days and off for 3 days. Repeat as needed. Multivitamin ORAL Tab Take one(1) tablet daily. Calcium Carbonate-Vitamin D2 (CALCIUM + D) 600-200 mg-unit ORAL Tab Take one(1) tablet daily. acetaminophen (TYLENOL EXTRA STRENGTH) 500 mg ORAL Tab Take two(2) tablets every six(6) hours as needed for pain. Calcium Carbonate-Mag Hydroxid (ROLAIDS) 550-110 mg Chew Take 1 tablet by mouth as needed. No current facility-administered medications on file prior to visit. PAST MEDICAL HISTORY Diagnosis Date - Eczema 10/28/2014 - Endometrial cancer (HCC) 02/20/2010 Dx 2006 - Gout hx of - Hyperlipidaemia 04/21/2015 - Hypertension 05/22/2005 - Obesity, unspecified 05/22/2005 - Rosacea 05/17/2010 PHYSICAL EXAM: 06/01/18 1035 06/01/18 1059 BP: 151/84 134/86 BP Site: Left Arm Left Arm BP Position: Sitting Sitting BP Cuff Size: Large Adult Regular Adult Pulse: 67 SpO2: 95% Weight: 96.6 kg (213 lb) Height: 164 cm (5' 4.57) LMP 06/02/2006 General: Alert and oriented x3, no acute distress Eyes: anicteric sclera, Extraocular motions intact Oral: Mucous membranes moist, no erythema Neck: supple, no cervical lymphadenopathy Thyroid: normal size, normal texture, no palpable nodules Heart regular rate and rhythm Chest: breathing unlabored, lungs clear to ausculation, no wheezing, rales, rhonchi Abdomen: normal bowel sounds, non tender to palpation, no masses Neuro: gait normal, sensation grossly normal, normal DTR's at patella Extremities: Good peripheral pulses, no edema Skin: No rash/erthema LAB: Glucose (mg/dL) Date Value 04/10/2018 86 Potassium (mmol/L) Date Value 04/10/2018 4.5 Sodium (mmol/L) Date Value 04/10/2018 139 Chloride (mmol/L) Date Value 04/10/2018 100 CO2 (mmol/L) Date Value 04/10/2018 24 Creatinine (mg/dL) Date Value 04/10/2018 1.09 BUN (mg/dL) Date Value 04/10/2018 16 Anion Gap (mmol/L) Date Value 04/10/2018 15 Calcium (mg/dL) Date Value 04/10/2018 11.2 Protein, Total (g/dL) Date Value 10/14/2017 7.6 Albumin (g/dL) Date Value 10/14/2017 4.5 Bilirubin, Total (mg/dL) Date Value 10/14/2017 0.4 Alkaline Phosphatase (U/L) Date Value 10/14/2017 116 AST (U/L) Date Value 10/14/2017 21 ALT (U/L) Date Value 10/14/2017 22 Vitamin D 25 Hydroxy (ng/mL) Date Value 10/14/2017 48.8 ] Imaging DXA- April 2018 LUMBAR SPINE: ?The bone mineral density from L1 through L4 is 1.243 grams per square centimeter which yields a T-score of 1.8. ?This is 4% improved. LEFT HIP: ?The bone mineral density of the total region of the hip is 1.032 grams per square centimeter which yields a T-score of 0.7. ? ?. LEFT FEMORAL NECK: ?The bone mineral density of the femoral neck is 0.752 grams per square centimeter which yields a T-score of -0.9. ? ?. LEFT FOREARM: ?The bone mineral density of the radius 1/3 is 0.719 grams per square centimeter which yields a T-score of 0.4 . ?This is 7.6% improved. 10-year Fracture Risk (FRAX): Major osteoporotic fracture risk 7.6% Hip fracture risk 0.6% ASSESSMENT/PLAN: 1) Hypercalcemia 2) Hyperparathyroidism 3) Osteopenia Patient is asymptomatic No hx of fractures/nephrolithiasis Most calcium level was 11.2 in April 2018 Recheck calcium level and renal function If the repeat calcium is elevated, then will decrease calcium supplement to one a day 24 hour urine calcium was normal vitamin D level is optimal We reviewed the surgical criteria for parathyroidectomy At this time, the only criteria for surgery is her calcium level My suggestion is to monitor calcium level and renal function Probability for Major osteoporotic fracture risk 7.6% and Hip fracture risk 0.6%, therefore, no indication to start bisphosphonates at this time Suggested the patient to stay well hydrated I will send patient a message in my chart once the lab results become available. Follow up to be determined Cecile Landis MD 06/01/18 Cecile Landis MD 06/01/2018 10:52 AM Signed Do the blood test for calcium I will send you a message in my chart once the lab results become available Follow up to determined based on labs Referring Provider: SELF [[id number]] Allergies As of Date: 06/01/2018 Noted Allergy Reaction FLAGYL (METRONIDAZOLE HCL) 05/22/2005 2 - Rash Comments: Pt tolerates topical. Refer to phone note on 03-12-07. Date Reviewed: 06/01/2018 Reviewed by: Cecile Landis - Fully Assessed Reason for Visit: Thyroid Problem [110] Primary Visit Diagnosis:Hypercalcemia [E83.52] Other Visit Diagnoses:Hyperparathyroidism (HCC) [E21.3] Osteopenia, unspecified location [M85.80] Order(s):BASIC METABOLIC PNL [SQBMP] Order #: [id number] FUTURE Prescriptions as of 06/01/2018 Sig: LISINOPRIL 20 MG TABLET Take 1 tablet by mouth once d* ALLOPURINOL 300 MG TABLET Take 1 tablet by mouth once d* RANITIDINE 150 MG TABLET Take 1 tablet by mouth twice * OMEGA-3 FATTY ACIDS 1,000 MG * Take 2 capsules by mouth twic* KETOCONAZOLE 2 % SHAMPOO Apply to affected area once * AZELAIC ACID 15 % TOPICAL GEL Apply to affected area. HYDROCORTISONE 2.5 % TOPICAL * Apply 1 application to affect* CALCIUM CARBONATE 550 MG-MAGN* Take 1 tablet by mouth as nee* * MULTIVITAMIN TABLET Take one(1) tablet daily. * CALCIUM + D 600 MG (1,500 MG)* take 2 tablets daily * TYLENOL EXTRA STRENGTH 500 MG* Take two(2) tablets every six* MOMETASONE 0.1 % TOPICAL CREAM Apply to areas twice a day. * Medication notes this encounter MOMETASONE 0.1 % TOPICAL CREAM >> Yakov Roe Ma 06/01/2018 10:34 AM >> YAKOV ROE MA Jun 01, 2018 10:34 AM D/c Problem List As Of Date 06/01/2018 Noted Resolved Malignant Neoplasm of Corpus Uteri, except Isth* 02/20/2010 More... History of endometrial cancer [Z85.42] INVALID FOR* Priority: C More... Rosacea [L71.9] INVALID FOR* Priority: C Well adult exam [Z00.00] INVALID FOR* Priority: D More... Eczema [L30.9] INVALID FOR* Priority: D Routine gynecological examination [Z01.419] INVALID FOR* Priority: D More... 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 Hypercalcemia [E83.52] INVALID FOR* Osteopenia [M85.80] INVALID FOR* Priority: M Medicare annual wellness visit, subsequent [Z00*INVALID FOR* Priority: E More... Class 2 obesity due to excess calories without *INVALID FOR* Priority: B Arthritis of both knees [M17.0] INVALID FOR* Priority: M More... Other instructions from your clinician: Do the blood test for calcium I will send you a message in my chart once the lab results become available Follow up to determined based on labs Encounter Status:Closed by CECILE LANDIS DO on 06/01/18 CNNURSE Observed: 05/21/2018 Status: COMPLETED Source: [place] 9:45 AM [facility] REPOSITORY Nurse Visit (FAMPWS) MARNI ACOSTA ([id number]) 1950 F Date Time Provider Department 05/21/18 9:45 AM [place] NURSE FAMPWS During your visit today, we recorded the following information about you: Pulse Blood pressure 68/minute 128/70 Kellen Johan NAJERA 05/21/2018 9:45 AM Signed Manual Readin/70 Pulse: 68 Reason for blood pressure check - Last BP elevated and Medication adjustment Patient is: Taking medication as prescribed Yes Took medication today Yes If no, date medication last taken N/A Experiencing side effects No BP was elevated at last appt with Pamela Blanca PA-C, on 04/23/18. Lisinopril was increased to 20mg daily at that time. Tolerating medication well. Does report that she had one episode of dull left side chest discomfort last night that lasted several hrs. It did not radiate any where and she had not other attributing symptoms. Denies any shortness of breath, dizziness, or headaches. Daily caffeine use. Past personal history of tobacco use; no current exposure. Alert and oriented. Pt has been identified by name and birthdate: Yes Allergies reviewed: Yes Latex allergy: no. Medication - prescribed and OTC reviewed and updated: Yes Do you need any prescription refills prior to your next visit: No Health Maintenance: Reviewed and not up to date and provider notified Patient advised to continue with current medications and would be contacted with any further instructions after review by PCP. Kellen Prado LPN Referring Provider: PAMELA BLANCA(SAMSON) [[id number]] Allergies As of Date: 05/21/2018 Noted Allergy Reaction FLAGYL (METRONIDAZOLE HCL) 05/22/2005 2 - Rash Comments: Pt tolerates topical. Refer to phone note on 03-12-07. Date Reviewed: 04/23/2018 Reviewed by: Sandip) Evangelist - Fully Assessed Reason for Visit: Blood Pressure Check [195] Primary Visit Diagnosis:Essential hypertension with goal blood pressure less than 140/90 [I10] Prescriptions as of 05/21/2018 Sig: LISINOPRIL 20 MG TABLET Take 1 tablet by mouth once d* ALLOPURINOL 300 MG TABLET Take 1 tablet by mouth once d* RANITIDINE 150 MG TABLET Take 1 tablet by mouth twice * OMEGA-3 FATTY ACIDS 1,000 MG * Take 2 capsules by mouth twic* KETOCONAZOLE 2 % SHAMPOO Apply to affected area once * AZELAIC ACID 15 % TOPICAL GEL Apply to affected area. HYDROCORTISONE 2.5 % TOPICAL * Apply 1 application to affect* MOMETASONE 0.1 % TOPICAL CREAM Apply to areas twice a day. * CALCIUM CARBONATE 550 MG-MAGN* Take 1 tablet by mouth as nee* * MULTIVITAMIN TABLET Take one(1) tablet daily. * CALCIUM + D 600 MG (1,500 MG)* take 2 tablets daily * TYLENOL EXTRA STRENGTH 500 MG* Take two(2) tablets every six* Problem List As Of Date 05/21/2018 Noted Resolved Malignant Neoplasm of Corpus Uteri, except Isth* 02/20/2010 More... History of endometrial cancer [Z85.42] INVALID FOR* Priority: C More... Rosacea [L71.9] INVALID FOR* Priority: C Well adult exam [Z00.00] INVALID FOR* Priority: D More... Eczema [L30.9] INVALID FOR* Priority: D Routine gynecological examination [Z01.419] INVALID FOR* Priority: D More... 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 Hypercalcemia [E83.52] INVALID FOR* Osteopenia [M85.80] INVALID FOR* Priority: M Medicare annual wellness visit, subsequent [Z00*INVALID FOR* Priority: E More... Class 2 obesity due to excess calories without *INVALID FOR* Priority: B Arthritis of both knees [M17.0] INVALID FOR* Priority: M More... Encounter Status:Closed by KELLEN PRADO LPN on 05/21/18 PROGRESS Observed: 05/21/2018 Status: COMPLETED Source: [place] 9:33 AM [facility] [place] REPOSITORY [facility] ID: [id number] Author: Kellen Prado LPN Service: (none) Author Type: (none) Type: Progress Notes Filed: 05/21/2018 9:45 AM Note Text: Manual Readin/70 Pulse: 68 Reason for blood pressure check - Last BP elevated and Medication adjustment Patient is: Taking medication as prescribed Yes Took medication today Yes If no, date medication last taken N/A Experiencing side effects No BP was elevated at last appt with Pamela Blanca PA-C, on 04/23/18. Lisinopril was increased to 20mg daily at that time. Tolerating medication well. Does report that she had one episode of dull left side chest discomfort last night that lasted several hrs. It did not radiate any where and she had not other attributing symptoms. Denies any shortness of breath, dizziness, or headaches. Daily caffeine use. Past personal history of tobacco use; no current exposure. Alert and oriented. Pt has been identified by name and birthdate: Yes Allergies reviewed: Yes Latex allergy: no. Medication - prescribed and OTC reviewed and updated: Yes Do you need any prescription refills prior to your next visit: No Health Maintenance: Reviewed and not up to date and provider notified Patient advised to continue with current medications and would be contacted with any further instructions after review by PCP. Kellen Prado LPN BD DXA - FOREARM Observed: 05/04/2018 Status: F Source: [place] 9:50 AM [facility] REPOSITORY * * *Final Report* * * DATE OF EXAM: May 04 2018 9:50AM WRB [id number] - BD DXA - FOREARM SKELETON / PROCEDURE REASON: Primary hyperparathyroidism * * * * Physician Interpretation * * * * PROCEDURE: BD AP SPINE/HIP, BD DXA - FOREARM SKELETON INDICATION: Primary hyperparathyroidism TECHNIQUE: Low dose AP spine and hip images COMPARISON: 04/28/2017 LUMBAR SPINE: The bone mineral density from L1 through L4 is 1.243 grams per square centimeter which yields a T-score of 1.8. This is 4% improved. LEFT HIP: The bone mineral density of the total region of the hip is 1.032 grams per square centimeter which yields a T-score of 0.7. . LEFT FEMORAL NECK: The bone mineral density of the femoral neck is 0.752 grams per square centimeter which yields a T-score of -0.9. . LEFT FOREARM: The bone mineral density of the radius 1/3 is 0.719 grams per square centimeter which yields a T-score of 0.4 . This is 7.6% improved. 10-year Fracture Risk (FRAX): Major osteoporotic fracture risk 7.6% Hip fracture risk 0.6% IMPRESSION: Normal. WORLD HEALTH ORG. CLASSIFICATION OF BONE MASS CLASSIFICATION T-SCORE Normal Greater than -1 Low Bone Mass Between -1 and -2.5 (Osteopenia) Osteoporosis Less than or equal to -2.5 Statement Processor: JAYLENE Transcribe Date/Time: May 04 2018 6:09P Dictated by : MERARI CLARK MD This examination was interpreted and the report reviewed and electronically signed by: MERARI CLARK MD on May 04 2018 6:11PM EST [id number] BD AP SPINE/HIP Observed: 05/04/2018 Status: F Source: [place] 9:50 AM [facility] REPOSITORY * * *Final Report* * * DATE OF EXAM: May 04 2018 9:50AM WRB [id number] - BD AP SPINE/HIP B / PROCEDURE REASON: Primary hyperparathyroidism * * * * Physician Interpretation * * * * PROCEDURE: BD AP SPINE/HIP, BD DXA - FOREARM SKELETON INDICATION: Primary hyperparathyroidism TECHNIQUE: Low dose AP spine and hip images COMPARISON: 04/28/2017 LUMBAR SPINE: The bone mineral density from L1 through L4 is 1.243 grams per square centimeter which yields a T-score of 1.8. This is 4% improved. LEFT HIP: The bone mineral density of the total region of the hip is 1.032 grams per square centimeter which yields a T-score of 0.7. . LEFT FEMORAL NECK: The bone mineral density of the femoral neck is 0.752 grams per square centimeter which yields a T-score of -0.9. . LEFT FOREARM: The bone mineral density of the radius 1/3 is 0.719 grams per square centimeter which yields a T-score of 0.4 . This is 7.6% improved. 10-year Fracture Risk (FRAX): Major osteoporotic fracture risk 7.6% Hip fracture risk 0.6% IMPRESSION: Normal. WORLD HEALTH ORG. CLASSIFICATION OF BONE MASS CLASSIFICATION T-SCORE Normal Greater than -1 Low Bone Mass Between -1 and -2.5 (Osteopenia) Osteoporosis Less than or equal to -2.5 Statement Processor: JAYLENE Transcribe Date/Time: May 04 2018 6:09P Dictated by : MERARI CLARK MD This examination was interpreted and the report reviewed and electronically signed by: MERARI CLARK MD on May 04 2018 6:11PM EST PROGRESS Observed: 05/04/2018 Status: COMPLETED Source: [place] 9:26 AM [facility] REPOSITORY [facility] ID: [id number] Author: Eliane Francois Service: (none) Author Type: (none) Type: Progress Notes Filed: 05/04/2018 9:50 AM Note Text: Marni Acosta May 04, 2018 [id number] Double identification: Patient identified by name and Bone Density Completed. Eliane Prado Rt patient told of radiation jk 9:30 am not PROGRESS Observed: 04/23/2018 Status: COMPLETED Source: [place] 10:30 AM [facility] REPOSITORY [facility] ID: [id number] Author: Shy Blanca Service: (none) Author Type: Physician Supervisor Word Processing Type: Progress Notes Filed: 04/23/2018 12:23 PM Note Text: Chief Complaint Patient presents with: Recheck: Patient is here for 6 month follow up HPI Marni Acosta is a 67 year old female who presents here today for Chronic Medical Conditions.. Patient without any concerns today. Last 6 Encounter BP Readings: Date: BP: 04/23/2018 158/84 10/22/2017 136/84 08/10/2017 156/88 08/04/2017 146/86 06/30/2017 144/77 04/21/2017 130/82 Last 6 Encounter Wt Readings: Date: Wt: 04/23/2018 97.5 kg (215 lb) 10/22/2017 100.7 kg (222 lb) 08/10/2017 102.1 kg (225 lb) 08/04/2017 102.5 kg (226 lb) 06/30/2017 100.8 kg (222 lb 3.2 oz) 04/21/2017 101.2 kg (223 lb) Reports that she wakes up in the morning with sinus congestion. But otherwise doing well. Past medical history, appointments, medications, allergies reviewed. Previous Medical History PAST MEDICAL HISTORY Diagnosis Date - Eczema 10/28/2014 - Endometrial cancer (HCC) 02/20/2010 Dx 2006 - Gout hx of - Hyperlipidaemia 04/21/2015 - Hypertension 05/22/2005 - Obesity, unspecified 05/22/2005 - Rosacea 05/17/2010 Previous Surgical History PAST SURGICAL HISTORY Procedure Laterality Date - APPENDECTOMY AGE 6 - DELIVERY ONLY 1982, 1984 , low transverse x 2 - COLONOSCOP W/ OR W/O [facility] SPEC 12/01/2009 Colonoscopy, recheck 10 yrs - PAST SURGICAL HISTORY OF * 2 - TOTAL ABDOM HYSTERECTOMY 2006 BSO - US PERC CHOLECYSTOSTOMY 1995 Family History FAMILY HISTORY Problem Relation Age of Onset - Diabetes Mother - dementia [OTHER] Mother - Heart Father - Ischemic Heart Disease Father - Cancer Paternal Grandmother BREAST - Heart Paternal Grandfather PACEMAKER Patient Allergies ALLERGIES Allergen Reactions - Flagyl [Metronidazo* Rash Pt tolerates topical. Refer to phone note on 03-12-07. Current Medications Current Outpatient Prescriptions on File Prior to Visit: ranitidine (ZANTAC) 150 mg tablet Take 1 tablet by mouth twice daily. lisinopril (ZESTRIL, PRINIVIL) 10 mg tablet Take 1 tablet by mouth once daily. allopurinol (ZYLOPRIM) 300 mg tablet Take 1 tablet by mouth once daily. omega-3 fatty acids 1,000 mg cap Take 2 capsules by mouth twice daily. ketoconazole (NIZORAL) 2 % shampoo Apply to affected area once daily as needed. Azelaic Acid (FINACEA) 15 % gel Apply to affected area. hydrocortisone 2.5 % cream Apply 1 application to affected area twice daily. Apply to areas weekly as needed. Calcium Carbonate-Mag Hydroxid (ROLAIDS) 550-110 mg Chew Take 1 tablet by mouth as needed. Multivitamin ORAL Tab Take one(1) tablet daily. Calcium Carbonate-Vitamin D2 (CALCIUM + D) 600-200 mg-unit ORAL Tab take 2 tablets daily acetaminophen (TYLENOL EXTRA STRENGTH) 500 mg ORAL Tab Take two(2) tablets every six(6) hours as needed for pain. mometasone (ELOCON) 0.1 % cream Apply to areas twice a day. On for 4 days and off for 3 days. Repeat as needed. No current facility-administered medications on file prior to visit. Social History Social History Marital status: Spouse name: Cheng Years of education: Number of children: 2 Occupational History Occupation Employer Comment [employer] Social History Main Topics Smoking status: Former Smoker Packs/day: 0.00 Years: 0.00 Smokeless tobacco: Never Used Comment: quit 30 years ago Alcohol use: Yes 1.5 oz/week Glasses of Wine (5oz): 1 per week Comment: 2-3 times a week Drug use: No Sexual activity: Yes Partners with: Male Review of Symptoms REVIEW OF SYSTEMS GENERAL: No weight loss, malaise or fevers NECK: Negative for lumps, goiter, pain and significant neck swelling RESPIRATORY: Negative for cough, hemoptysis, wheezing, COPD, dyspnea or shortness of breath GI: No nausea, vomiting, or diarrhea and No heartburn or reflux symptoms- improved with zantac PSYCH: Negative for sleep disturbance, mood disorder and recent psychosocial stressors ENDOCRINE: Negative for cold or heat intolerance, polyuria, polydipsia and goiter NEURO: No history of headaches, syncope, paralysis, seizures or tremors EXAM: BP 158/84 (BP Site: Left Arm, BP Position: Sitting, BP Cuff Size: Large Adult) Pulse 68 Resp 14 Wt 97.5 kg (215 lb) LMP 06/02/2006 BMI 37.49 kg/m? General Appearance: Well appearing, alert, in no acute distress, well-hydrated, well nourished.. Neck: Supple, no adenopathy; thyroid symmetric, normal size, no bruits. Lungs: Lungs clear to auscultation. No wheezing, rhonchi, rales. Heart: RRR without murmur, gallop, or rubs. No ectopy. Extremities: No deformities, edema, Peripheral Pulses: Normal. Health Maintenance List ZOSTER VACCINE (SHINGRIX)(1 of 2) due on 2000 MAMMOGRAM due on 07/03/2018 COLORECTAL CANCER SCREENING,SEE MODIFIER due on 12/01/2019 DTAP,TDAP,TD(2 - Td) due on 05/17/2020 DIABETES SCREEN due on 04/10/2021 LIPID SCREEN due on 04/10/2023 BONE DENSITY Completed ADULT PREVNAR-13 Completed INFLUENZA Completed HEPATITIS C SCREENING Completed PNEUMOVAX AGE 65 AND OVER WITH 5YR LOOKBACK Completed Data reviewed Component Latest Ref Rng AND Units 10/14/2017 10/29/2017 04/10/2018 Protein, Total 6.3 - 8.0 g/dL 7.6 Albumin 3.9 - 4.9 g/dL 4.5 Calcium 8.5 - 10.2 mg/dL 9.1 11.2 (H) Bilirubin, Total 0.2 - 1.3 mg/dL 0.4 Alkaline Phosphatase 32 - 117 U/L 116 AST 13 - 35 U/L 21 Glucose 74 - 99 mg/dL 96 86 BUN 7 - 21 mg/dL 12 16 Creatinine 0.58 - 0.96 mg/dL 0.98 (H) 1.09 (H) Sodium 136 - 144 mmol/L 140 139 Potassium 3.7 - 5.1 mmol/L 4.2 4.5 Chloride 97 - 105 mmol/L 100 100 CO2 22 - 30 mmol/L 24 24 Anion Gap 9 - 18 mmol/L 16 15 ALT 7 - 38 U/L 22 eGFR- >60 >60 eGFR-All Other Races . 57 50 Triglyceride <150 mg/dL 172 (H) 103 Cholesterol, Total <200 mg/dL 253 (H) 221 (H) HDL Cholesterol >39 mg/dL 72 84 VLDL Cholesterol <30 mg/dL 34 21 LDL Cholesterol <100 mg/dL 147 (H) 116 (H) Fasting Time hrs 12 11 TC:HDL Ratio <5.10 3.51 2.63 LDL:HDL Ratio <2.54 2.04 1.38 Non HDL Cholesterol <130 mg/dL 181 (H) 137 (H) PTH, Intact 15 - 65 pg/mL 48 Vitamin D 25 Hydroxy 31.0 - 80.0 ng/mL 48.8 Occult Blood, Stool Negative Negative Uric Acid 2.5 - 6.6 mg/dL 4.7 ASSESSMENT/PLAN: 1. Essential hypertension with goal blood pressure less than 140/90 - ICD9: 401.9, ICD10: I10 (primary diagnosis) - poor control - Increase lisinopril (Zestril/Prinivil) to 20mg daily - Recommended regular aerobic exercise. - Recommend home blood pressure monitoring, to bring results in on next visit - Goal of BP <140/90 - Recheck in 1 month with Nurse. - COMP METABOLIC PANEL - URINALYSIS WITH MICROSCOPIC 2. Mixed hyperlipidemia - ICD9: 272.2, ICD10: E78.2 - Improved control - Continue current therapy. Will continue to monitor lab - LIPID PANEL BASIC 3. Hyperparathyroidism (HCC) - ICD9: 252.00, ICD10: E21.3 Cont with endo 4. Class 2 obesity due to excess calories without serious comorbidity with body mass index (BMI) of 37.0 to 37.9 in adult - ICD9: 278.00, V85.37, ICD10: E66.09, Z68.37 Discussed diet and exercise 5. Hypercalcemia - ICD9: 275.42, ICD10: E83.52 Continue with endo - COMP METABOLIC PANEL Follow up in 4 weeks for repeat blood pressure check Follow up in 6 months for PE Please get fasting labs prior to next OV. PAMELA BLANCA PA-C CNOV Observed: 04/23/2018 Status: COMPLETED Source: [place] 10:20 AM [facility] [facility] Office Visit (FAMPWS) MARNI ACOSTA ([id number]) 1950 F Date Time Provider Department 04/23/18 10:20 AM SANDIP BLANCA) FAMPWS During your visit today, we recorded the following information about you: Pulse Respiration Blood pressure Weight 68/minute 14/minute 142/82 97.5 kg PAMELA BLANCA PA-C 04/23/2018 12:23 PM Signed Chief Complaint Patient presents with: Recheck: Patient is here for 6 month follow up HPI Marni Acosta is a 67 year old female who presents here today for Chronic Medical Conditions.. Patient without any concerns today. Last 6 Encounter BP Readings: Date: BP: 04/23/2018 158/84 10/22/2017 136/84 08/10/2017 156/88 08/04/2017 146/86 06/30/2017 144/77 04/21/2017 130/82 Last 6 Encounter Wt Readings: Date: Wt: 04/23/2018 97.5 kg (215 lb) 10/22/2017 100.7 kg (222 lb) 08/10/2017 102.1 kg (225 lb) 08/04/2017 102.5 kg (226 lb) 06/30/2017 100.8 kg (222 lb 3.2 oz) 04/21/2017 101.2 kg (223 lb) Reports that she wakes up in the morning with sinus congestion. But otherwise doing well. Past medical history, appointments, medications, allergies reviewed. Previous Medical History PAST MEDICAL HISTORY Diagnosis Date - Eczema 10/28/2014 - Endometrial cancer (HCC) 02/20/2010 Dx 2006 - Gout hx of - Hyperlipidaemia 04/21/2015 - Hypertension 05/22/2005 - Obesity, unspecified 05/22/2005 - Rosacea 05/17/2010 Previous Surgical History PAST SURGICAL HISTORY Procedure Laterality Date - APPENDECTOMY AGE 6 - DELIVERY ONLY 1982, 1984 , low transverse x 2 - COLONOSCOP W/ OR W/O [facility] SPEC 12/01/2009 Colonoscopy, recheck 10 yrs - PAST SURGICAL HISTORY OF * 2 - TOTAL ABDOM HYSTERECTOMY 2006 BSO - US PERC CHOLECYSTOSTOMY 1995 Family History FAMILY HISTORY Problem Relation Age of Onset - Diabetes Mother - dementia [OTHER] Mother - Heart Father - Ischemic Heart Disease Father - Cancer Paternal Grandmother BREAST - Heart Paternal Grandfather PACEMAKER Patient Allergies ALLERGIES Allergen Reactions - Flagyl [Metronidazo* Rash Pt tolerates topical. Refer to phone note on 03-12-07. Current Medications Current Outpatient Prescriptions on File Prior to Visit: ranitidine (ZANTAC) 150 mg tablet Take 1 tablet by mouth twice daily. lisinopril (ZESTRIL, PRINIVIL) 10 mg tablet Take 1 tablet by mouth once daily. allopurinol (ZYLOPRIM) 300 mg tablet Take 1 tablet by mouth once daily. omega-3 fatty acids 1,000 mg cap Take 2 capsules by mouth twice daily. ketoconazole (NIZORAL) 2 % shampoo Apply to affected area once daily as needed. Azelaic Acid (FINACEA) 15 % gel Apply to affected area. hydrocortisone 2.5 % cream Apply 1 application to affected area twice daily. Apply to areas weekly as needed. Calcium Carbonate-Mag Hydroxid (ROLAIDS) 550-110 mg Chew Take 1 tablet by mouth as needed. Multivitamin ORAL Tab Take one(1) tablet daily. Calcium Carbonate-Vitamin D2 (CALCIUM + D) 600-200 mg-unit ORAL Tab take 2 tablets daily acetaminophen (TYLENOL EXTRA STRENGTH) 500 mg ORAL Tab Take two(2) tablets every six(6) hours as needed for pain. mometasone (ELOCON) 0.1 % cream Apply to areas twice a day. On for 4 days and off for 3 days. Repeat as needed. No current facility-administered medications on file prior to visit. Social History Social History Marital status: Spouse name: Cheng Years of education: Number of children: 2 Occupational History Occupation Employer Comment [employer] Social History Main Topics Smoking status: Former Smoker Packs/day: 0.00 Years: 0.00 Smokeless tobacco: Never Used Comment: quit 30 years ago Alcohol use: Yes 1.5 oz/week Glasses of Wine (5oz): 1 per week Comment: 2-3 times a week Drug use: No Sexual activity: Yes Partners with: Male Review of Symptoms REVIEW OF SYSTEMS GENERAL: No weight loss, malaise or fevers NECK: Negative for lumps, goiter, pain and significant neck swelling RESPIRATORY: Negative for cough, hemoptysis, wheezing, COPD, dyspnea or shortness of breath GI: No nausea, vomiting, or diarrhea and No heartburn or reflux symptoms- improved with zantac PSYCH: Negative for sleep disturbance, mood disorder and recent psychosocial stressors ENDOCRINE: Negative for cold or heat intolerance, polyuria, polydipsia and goiter NEURO: No history of headaches, syncope, paralysis, seizures or tremors EXAM: BP 158/84 (BP Site: Left Arm, BP Position: Sitting, BP Cuff Size: Large Adult) Pulse 68 Resp 14 Wt 97.5 kg (215 lb) LMP 06/02/2006 BMI 37.49 kg/m? General Appearance: Well appearing, alert, in no acute distress, well-hydrated, well nourished.. Neck: Supple, no adenopathy; thyroid symmetric, normal size, no bruits. Lungs: Lungs clear to auscultation. No wheezing, rhonchi, rales. Heart: RRR without murmur, gallop, or rubs. No ectopy. Extremities: No deformities, edema, Peripheral Pulses: Normal. Health Maintenance List ZOSTER VACCINE (SHINGRIX)(1 of 2) due on 2000 MAMMOGRAM due on 07/03/2018 COLORECTAL CANCER SCREENING,SEE MODIFIER due on 12/01/2019 DTAP,TDAP,TD(2 - Td) due on 05/17/2020 DIABETES SCREEN due on 04/10/2021 LIPID SCREEN due on 04/10/2023 BONE DENSITY Completed ADULT PREVNAR-13 Completed INFLUENZA Completed HEPATITIS C SCREENING Completed PNEUMOVAX AGE 65 AND OVER WITH 5YR LOOKBACK Completed Data reviewed Component Latest Ref Rng AND Units 10/14/2017 10/29/2017 04/10/2018 Protein, Total 6.3 - 8.0 g/dL 7.6 Albumin 3.9 - 4.9 g/dL 4.5 Calcium 8.5 - 10.2 mg/dL 9.1 11.2 (H) Bilirubin, Total 0.2 - 1.3 mg/dL 0.4 Alkaline Phosphatase 32 - 117 U/L 116 AST 13 - 35 U/L 21 Glucose 74 - 99 mg/dL 96 86 BUN 7 - 21 mg/dL 12 16 Creatinine 0.58 - 0.96 mg/dL 0.98 (H) 1.09 (H) Sodium 136 - 144 mmol/L 140 139 Potassium 3.7 - 5.1 mmol/L 4.2 4.5 Chloride 97 - 105 mmol/L 100 100 CO2 22 - 30 mmol/L 24 24 Anion Gap 9 - 18 mmol/L 16 15 ALT 7 - 38 U/L 22 eGFR- >60 >60 eGFR-All Other Races . 57 50 Triglyceride <150 mg/dL 172 (H) 103 Cholesterol, Total <200 mg/dL 253 (H) 221 (H) HDL Cholesterol >39 mg/dL 72 84 VLDL Cholesterol <30 mg/dL 34 21 LDL Cholesterol <100 mg/dL 147 (H) 116 (H) Fasting Time hrs 12 11 TC:HDL Ratio <5.10 3.51 2.63 LDL:HDL Ratio <2.54 2.04 1.38 Non HDL Cholesterol <130 mg/dL 181 (H) 137 (H) PTH, Intact 15 - 65 pg/mL 48 Vitamin D 25 Hydroxy 31.0 - 80.0 ng/mL 48.8 Occult Blood, Stool Negative Negative Uric Acid 2.5 - 6.6 mg/dL 4.7 ASSESSMENT/PLAN: 1. Essential hypertension with goal blood pressure less than 140/90 - ICD9: 401.9, ICD10: I10 (primary diagnosis) - poor control - Increase lisinopril (Zestril/Prinivil) to 20mg daily - Recommended regular aerobic exercise. - Recommend home blood pressure monitoring, to bring results in on next visit - Goal of BP <140/90 - Recheck in 1 month with Nurse. - COMP METABOLIC PANEL - URINALYSIS WITH MICROSCOPIC 2. Mixed hyperlipidemia - ICD9: 272.2, ICD10: E78.2 - Improved control - Continue current therapy. Will continue to monitor lab - LIPID PANEL BASIC 3. Hyperparathyroidism (HCC) - ICD9: 252.00, ICD10: E21.3 Cont with endo 4. Class 2 obesity due to excess calories without serious comorbidity with body mass index (BMI) of 37.0 to 37.9 in adult - ICD9: 278.00, V85.37, ICD10: E66.09, Z68.37 Discussed diet and exercise 5. Hypercalcemia - ICD9: 275.42, ICD10: E83.52 Continue with endo - COMP METABOLIC PANEL Follow up in 4 weeks for repeat blood pressure check Follow up in 6 months for PE Please get fasting labs prior to next OV. SAMSON NOLASCO PA-C 04/23/2018 10:55 AM Signed Follow up in 4 weeks for repeat BP check. Follow up in approx 6 months for routine physical. Please get routine bloodwork prior to Physical Referring Provider: NATHAN ALVAREZ [[id number]] Allergies As of Date: 04/23/2018 Noted Allergy Reaction FLAGYL (METRONIDAZOLE HCL) 05/22/2005 2 - Rash Comments: Pt tolerates topical. Refer to phone note on 03-12-07. Date Reviewed: 04/23/2018 Reviewed by: Sandip) Evangelist - Fully Assessed Reason for Visit: Recheck [92] Cmt: Patient is here for 6 month follow up Primary Visit Diagnosis:Essential hypertension with goal blood pressure less than 140/90 [I10] Other Visit Diagnoses:Mixed hyperlipidemia [E78.2] Hyperparathyroidism (HCC) [E21.3] Class 2 obesity due to excess calories without serious comorbidity with body mass index (BMI) of 37.0 to 37.9 in adult [E66.09, Z68.37] Hypercalcemia [E83.52] Order(s):lisinopril (ZESTRIL, PRINIVIL) 20 mg tabletTake 1 tablet by mouth once daily.Disp: 90 tabletRfl: 3 allopurinol (ZYLOPRIM) 300 mg tabletTake 1 tablet by mouth once daily.Disp: 90 tabletRfl: 3 COMP METABOLIC PANEL [SQCMP] Order #: [id number] FUTURE URINALYSIS WITH MICROSCOPIC [SQUAWMIC] Order #: [id number] FUTURE LIPID PANEL BASIC [SQLIPB] Order #: [id number] FUTURE Prescriptions as of 04/23/2018 Sig: LISINOPRIL 20 MG TABLET Take 1 tablet by mouth once d* ALLOPURINOL 300 MG TABLET Take 1 tablet by mouth once d* RANITIDINE 150 MG TABLET Take 1 tablet by mouth twice * OMEGA-3 FATTY ACIDS 1,000 MG * Take 2 capsules by mouth twic* KETOCONAZOLE 2 % SHAMPOO Apply to affected area once * AZELAIC ACID 15 % TOPICAL GEL Apply to affected area. HYDROCORTISONE 2.5 % TOPICAL * Apply 1 application to affect* CALCIUM CARBONATE 550 MG-MAGN* Take 1 tablet by mouth as nee* * MULTIVITAMIN TABLET Take one(1) tablet daily. * CALCIUM + D 600 MG (1,500 MG)* take 2 tablets daily * TYLENOL EXTRA STRENGTH 500 MG* Take two(2) tablets every six* MOMETASONE 0.1 % TOPICAL CREAM Apply to areas twice a day. * Problem List As Of Date 04/23/2018 Noted Resolved Malignant Neoplasm of Corpus Uteri, except Isth* 02/20/2010 More... History of endometrial cancer [Z85.42] INVALID FOR* Priority: C More... Rosacea [L71.9] INVALID FOR* Priority: C Well adult exam [Z00.00] INVALID FOR* Priority: D More... Eczema [L30.9] INVALID FOR* Priority: D Routine gynecological examination [Z01.419] INVALID FOR* Priority: D More... 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 Hypercalcemia [E83.52] INVALID FOR* Osteopenia [M85.80] INVALID FOR* Priority: M Medicare annual wellness visit, subsequent [Z00*INVALID FOR* Priority: E More... Class 2 obesity due to excess calories without *INVALID FOR* Priority: B Arthritis of both knees [M17.0] INVALID FOR* Priority: M More... Other instructions from your clinician: Follow up in 4 weeks for repeat BP check. Follow up in approx 6 months for routine physical. Please get routine bloodwork prior to Physical Prescriptions ordered this encounter Disp Refills Start End LISINOPRIL 20 MG TABLET 90 t* 3 04/23/2018 Route: ORAL Sig: Take 1 tablet by mouth once daily. ALLOPURINOL 300 MG TABLET 90 t* 3 04/23/2018 Route: ORAL Sig: Take 1 tablet by mouth once daily. Medications Discontinued During This Encounter lisinopril (ZESTRIL, PRINIVIL) 10 mg* 90 t* 3 04/21/2017 04/23/2018 Route: ORAL Sig: Take 1 tablet by mouth once daily. Disc: Reason for discontinue is not on file. allopurinol (ZYLOPRIM) 300 mg tablet 90 t* 3 04/21/2017 04/23/2018 Route: ORAL Sig: Take 1 tablet by mouth once daily. Disc: Reason for discontinue is not on file. Disposition: Return in about 4 weeks (around 05/21/2018) for BP NV. Follow-up and Disposition History Recorded Encounter Status:Closed by PAMELA COONEY on 04/23/18 BASIC METABOLIC PANL Collected: 04/10/2018 Status: F Source: [place] 9:10 AM [facility] [place] REPOSITORY TYPE CODE TESTS RESULT OUT OF REFERENCE UNITS RANGE LAB GLU 74-99 mg/dL Glucose 86 Result Comment: The [place] Diabetes Association (ADA) provides guidance for cutoff values for fasting glucose and random glucose. The ADA defines fasting as no caloric intake for at least 8 hours. Fas ting plasma glucose results between 100 to 125 mg/dL indicate increased risk for diabetes (prediabetes). Fasting plasma glucose results greater than or equal to 126 mg/dL meet the criteria for diagnosis of diabetes. In the absence of unequivocal hyperglycemia, results should be confirmed by repeat testing. In a patient with classic symptoms of hyperglycemia or hyperglycemic crisis, random plasma glucose results greater than or equal to 200 mg/dL meet the criteria for diagnosis of diabetes. Reference: Standards of Medical Care in Diabetes 2016, [place] Diabetes Association. Diabetes Care. 2016.39(Suppl 1). LAB BUN 7-21 mg/dL BUN 16 LAB CRET 0.58-0.96 mg/dL Creatinine High 1.09 LAB NA 136-144 mmol/L Sodium 139 LAB K 3.7-5.1 mmol/L Potassium 4.5 LAB CL 97-105 mmol/L Chloride 100 LAB CO2 22-30 mmol/L CO2 24 LAB AGAP 9-18 mmol/L Anion Gap 15 LAB CA 8.5-10.2 mg/dL Calcium, High Total 11.2 LAB GFRAA eGFR- Amer. >60 LAB GFRNAA . eGFR-All Other Races 50 Result Comment: eGFR (Estimated GFR) Units of measure: mL/min/1.73 meters squared eGFR is derived from the reexpressed MDRD Study equation using the following parameters: serum creatinine, age, gender and race. The creatinine assay has been calibrated to be traceable to IDMS. An eGFR <60 mL/min/1.73m2 for >3 months is consistent with chronic kidney disease. Refer to KDOQI guidelines for clinical interpretation. In patients with unstable renal function, e.g. those with acute kidney injury, the eGFR may not accurately reflect actual GFR. Performed By: #### BMP, LIPB, URIC #### [facility] [address] [place], [place] [address] LIPID PANEL, BASIC Collected: 04/10/2018 Status: F Source: [place] 9:10 AM [facility] REPOSITORY TYPE CODE TESTS RESULT OUT OF REFERENCE UNITS RANGE LAB CHOL <200 mg/dL Cholesterol High 221 Result Comment: <200 mg/dL, Desirable 200-239 mg/dL, Borderline high >239 mg/dL, High LAB TRIGLY <150 mg/dL Triglyceride 103 Result Comment: <150 mg/dL, Normal 150-199 mg/dL, Borderline high 200-499 mg/dL, High >499 mg/dL, Very high LAB HDL >39 mg/dL HDL-Cholesterol 84 Result Comment: 40-59 mg/dL, Acceptable >59 mg/dL, High: Negative risk factor for coronary heart disease <40 mg/dL, Low: Positive risk factor for coronary heart disease LAB LDL <100 mg/dL LDL-Cholesterol High 116 Result Comment: <100 mg/dL, Optimal 100-129 mg/dL, Near optimal/above optimal 130-159 mg/dL, Borderline high 160-189 mg/dL, High >189 mg/dL, Very high Secondary prevention optimal LDL Cholesterol levels are recommended to be < 70 mg/dL LAB NONHDL <130 mg/dL Non HDL High Cholesterol 137 Result Comment: <130 mg/dL, Optimal 130-159 mg/dL, Near optimal/above optimal 160-189 mg/dL, Borderline high 190-219 mg/dL, High >219 mg/dL, Very high Secondary prevention optimal non HDL Cholesterol levels are recommended to be < 100 mg/dL LAB FT hrs Fasting Time 11 LAB VLDL <30 mg/dL VLDL Cholesterol 21 LAB TCHDL <5.10 TC:HDL Ratio 2.63 LAB LDLHDL <2.54 LDL:HDL Ratio 1.38 Result Comment: Reference: 1. National Cholesterol Education Program ATP III Guideline At-A-Glance Quick Desk Reference: National Heart, Lung, and Blood [place]. National Institutes of Health. 2001: NIH Publication No. 01-3305. 2. An International Atherosclerosis Society position paper: global recommendations for the management of dyslipidemia: executive summary, Atherosclerosis. 2014: 232(2):410-413. Performed By: #### BMP, LIPB, URIC #### [facility] [address] [id number] URIC ACID Collected: 04/10/2018 Status: F Source: [place] 9:10 AM [facility] REPOSITORY TYPE CODE TESTS RESULT OUT OF RANGE REFERENCE UNITS LAB URIC 2.5-6.6 mg/dL Uric Acid 4.7 Performed By: #### BMP, LIPB, URIC #### [facility] [address] [place], [place] [address] CNCO Observed: 02/17/2018 Status: COMPLETED Source: [place] 12:00 AM [facility] REPOSITORY Letter Text Marni Acosta [address] [place] [address] 02/17/2018 [facility] #: [id number] Dear , Due to a change in the provider's schedule it has been necessary to reschedule your Appointment. Your original appointment was scheduled for 04/23/18 at 9:40 AM with Nathan Alvarez MD. Your new appointment is now scheduled on 04/23/18 at 10:20 AM with Pamela Blanca PA-C. If this new appointment is not convenient for you, please contact our office at [phone]. Thank you for choosing the [facility] as your Healthcare Provider . Sincerely, Family Medicine Appointment Office FECAL OCCULT BLD Collected: 10/29/2017 Status: F Source: [facility] 10:30 AM [facility] REPOSITORY TYPE CODE TESTS RESULT OUT OF REFERENCE UNITS RANGE LAB IFO Negative Immuno Negative FOB Result Comment: This test was developed and its performance characteristics determined by [facility]'s [facility]os Smith [facility] [place] ([facility]). It has not been cleared or approved by the FDA. -[facility] is regulated under CLIA as qualified to perform high-complexity testing. This test is used for clinical purposes. It should not be regarded as investigational or for research. Performed By: #### IFOBT #### [facility] [address] [place], [place] [address] ALLERGIES ALLERGIES DATE TYPE / CODE NAME / CODE REACTION SEVERITY SOURCE 05/22/2005 DRUG METRONIDAZOLE HCL RASH [facility] INGREDI/[address] [place] [id number](SNOM Repository ED CT) ENCOUNTERS ENCOUNTERS ADMIT/DISCHARGE ACCOUNT ADMITTING ENCOUNTER LOCATION SOURCE NUMBER CLASS 10/15/2018/10/15/20 [id number] Ambulatory [address] Repository 10/06/2018 [id number] Ambulatory [facility] ing:PSN Repository 09/24/2018/09/25/20 [id number] Ambulatory [address] Repository 09/21/2018/09/21/[id number] Repository 08/20/2018/08/21/20 [id number] Ambulatory [address] Repository 08/13/2018/08/13/20 [id number] Ambulatory [address] Repository 08/13/2018/08/13/[id number] Repository 08/13/2018/08/14/[id number] Repository 08/05/2018/08/06/[id number] Repository 07/06/2018/07/06/[id number] Repository 06/29/2018/06/29/20 [id number] Ambulatory [address] Repository 06/01/2018/06/01/20 [id number] Ambulatory [address] Repository 06/01/2018/06/02/20 [id number] Ambulatory [address] Repository 05/21/2018/05/22/20 [id number] Ambulatory [address] Repository 05/04/2018/05/04/20 [id number] Ambulatory [address] Repository 04/23/2018/04/24/20 [id number] Ambulatory [address] Repository 04/10/2018/04/10/20 [id number] Ambulatory [address] Repository 10/29/2017 [id number] Ambulatory [facility] Repository PAYERS PAYERS ENCOUNTER GUARANTOR PAYER SUBSCRIBER SOURCE 10/06/2018 [id number] Primary MARNI MORAN: Aravind CARRASCO, Insurance:AETNA [id number] [facility] [address]Xjf: [facility] Number: [facility] [id number] Repository (HP) Date:[id number] [address] [place] [address]BT: 10/06/2018 Secondary NOT GIVENMARCOS [place] Insurance:SELF PAY [facility] Number: Effective Repository Date:2018-08-20
== END ==
PROVIDERS: Family Provider Family Medicine; PCP Family Medicine; Referring Provider Podiatrist Foot & Ankle Surgery; Visit Provider Podiatrist Foot & Ankle Surgery
DX: R20.0 Anesthesia of skin (principal)
CPT/HCPCS: 95886; 95910

== ENCOUNTER → 2020-05-11 10:16 | Outpatient (CLI) | payer MEDICARE, SELFPAY | PROVIDERS: PCP Family Medicine; Referring Provider Dermatology; Visit Provider Dermatology | DX: C44.41 Basal cell carcinoma of skin of scalp and neck (principal); L60.3 Nail dystrophy; L60.1 Onycholysis | CPT/HCPCS: 87077; 87101 ==

== ENCOUNTER 2021-01-11 07:32 | Outpatient (RCR) | payer MEDICARE, SELFPAY ==
[2021-01-11] MEDS: COVID-19 VACC, MRNA(PFIZER)/PF 30 MCG/0.3 ML SYRINGE IM (16:25)
[2021-02-01] MEDS: COVID-19 VACC, MRNA(PFIZER)/PF 30 MCG/0.3 ML SYRINGE IM (16:02)
== END 2021-04-17 23:59 ==
LOC: IMMUN 07:32
PROVIDERS: PCP Family Medicine; Referring Provider Family Medicine; Visit Provider Family Medicine
DX: Z23 Encounter for immunization (principal)
CPT/HCPCS: 0001A; 0002A; 91300

== ENCOUNTER → 2025-07-22 | Outpatient (CLI) | payer MEDICARE, SELFPAY ==
[2025-07-22 16:17] LABS: Anion Gap 13 (5-15); BUN 17 mg/dL (4-19); BUN/Creat Ratio 20.0 RATIO (10-20); Calcium,Total 10.1 mg/dL (7.6-11.0); Carbon Dioxide 19.8 mmol/L (21.0-32.0); Chloride 102 mmol/L (98-108); Glucose 147 mg/dL (70-99); Potassium 4.3 mmol/L (3.3-5.1)
== END | disposition home or self-care (01) ==
LOC: MTLAB 13:41
PROVIDERS: PCP Family Medicine; Referring Provider Urology; Visit Provider Urology
DX: R93.89 Abnormal findings on diagnostic imaging of other specified body structures (principal)
CPT/HCPCS: 36415; 80048

== ENCOUNTER → 2025-07-26 | Outpatient (CLI) | payer MEDICARE, SELFPAY ==
--- NOTE | 2025-07-26 10:01 | EKG12_ITS ---
Test Reason : PRE OP Blood Pressure : */* mmHG Vent. Rate : 66 BPM Atrial Rate : 66 BPM P-R Int : 160 ms QRS Dur : 86 ms QT Int : 388 ms P-R-T Axes : 50 11 39 degrees QTcB Int : 406 ms Normal sinus rhythm Cannot rule out Anterior infarct , age undetermined Abnormal ECG Confirmed by RAN HART, DAVID ([id number]), editor book MINI CLAUDIO ([id number]) on 07/27/2025 9:42:43 AM Referred By: Sony Garces Confirmed By: DAVID TONG MD
[2025-07-26 10:43] LABS: Hematocrit 39.3 % (37-47); Hemoglobin 13.4 g/dL (12.0-15.0); Immature Granulocytes Count 0.030 X10^3/uL (0.0-0.0); Mean Corp Hgb Conc 34.1 g/dL (32-36); Mean Corpuscular Volume 89.7 fL (81-99); Mean Platelet Vol. 10.9 fl (6.2-12.0); NRBC Flagged by Analyzer 0 % (0-5); Platelet Count 231 K/mm3 (150-450); RBC Distribution Width CV 13.3 % (11.6-14.6); RBC Distribution Width SD 43.8 fl (35.1-43.9); Red Blood Count 4.38 M/mm3 (4.2-5.4); White Blood Count 7.3 K/mm3 (4.4-11.0)
[2025-07-26 11:21] LABS: Albumin, Serum 4.4 g/dL (3.4-4.8); Anion Gap 11 (5-15); BUN 18 mg/dL (4-19); BUN/Creat Ratio 21.9 RATIO (10-20); Calcium,Total 10.8 mg/dL (7.6-11.0); Carbon Dioxide 23.6 mmol/L (21.0-32.0); Chloride 100 mmol/L (98-108); Glucose 108 mg/dL (70-99); Potassium 4.5 mmol/L (3.3-5.1)
== END | disposition home or self-care (01) ==
PROVIDERS: PCP Family Medicine; Referring Provider Specialist; Visit Provider Specialist
DX: Z01.818 Encounter for other preprocedural examination (principal); Z01.810 Encounter for preprocedural cardiovascular examination; M17.12 Unilateral primary osteoarthritis, left knee
CPT/HCPCS: 36415; 80048; 82040; 85025; 93005

== ENCOUNTER → 2025-08-05 | Outpatient (CLI) | payer MEDICARE, SELFPAY ==
--- NOTE | 2025-08-05 15:58 | CT_ITS ---
PROCEDURE: EXTREMITY LOWER WITHOUT CONTRA 08/05/2025 REASON FOR EXAM: UNILATERAL PRIMARY OSTEOARTHRITIS, LEFT KNEE TECHNIQUE: Procedure Code: CTELWO Modality: CT Procedure: EXTREMITY LOWER WITHOUT CONTRA Coronal and Sagittal reconstruction series were provided. CONTRAST: None One or more dose reduction techniques were used (e.g., Automated exposure control, adjustment of the mA and/or kV according to patient size, use of iterative reconstruction technique). RADIATION DOSE SUMMARY: DLP: 2521 mGycm COMPARISON: None FINDINGS: There is severe tricompartment osteoarthritis. Joint space narrowing, subcortical cyst formation, and marginal osteophytes are noted. There is no acute fracture or dislocation identified. There is a 1 cm corticated osteochondral fragment in the anterior joint space. There is a small joint effusion. Vascular calcifications are noted. CT/Extremity Lower without Contra IMPRESSION: There is severe tricompartment osteoarthritis. Joint space narrowing, subcortical cyst formation, and marginal osteophytes are noted. There is a 1 cm corticated osteochondral fragment in the anterior joint space. Reading Location: [facility]
--- NOTE | 2025-08-05 15:58 | CT_ITS ---
PROCEDURE: CT ABD/PELVIS W/WO CONTRAST 08/05/2025 REASON FOR EXAM: RIGHT RENAL ATROPHY/UPJ Right renal cysts. TECHNIQUE: Procedure Code: [id number] Modality: CT Procedure: CT ABD/PELVIS W/WO CONTRAST Coronal and Sagittal reconstruction series were provided. CONTRAST: Isovue 370 VOLUME: 90 mL One or more dose reduction techniques were used (e.g., Automated exposure control, adjustment of the mA and/or kV according to patient size, use of iterative reconstruction technique. RADIATION DOSE SUMMARY: CTDlvol: 65 mGy DLP: 1929 mGycm COMPARISON: Previous ultrasound. FINDINGS: Lung bases: Negative. ABDOMEN Liver: Negative. Biliary system: Negative. Negative for intrahepatic or extrahepatic ductal dilatation. Gallbladder: Removed. Spleen: Negative. Pancreas: Negative. Adrenals: Slight left adrenal fullness with a Hounsfield measurement of less than 10. Consistent with small left adrenal adenoma. Right adrenal gland negative. Kidneys: Marked thinning of the cortex of the right kidney with severe right hydronephrosis with prominent right renal pelvis and proximal right ureter. Favor sequela of chronic right ureteropelvic junction obstruction. No distinct renal mass or cysts. The left ureter is intact. Negative for kidney stones, cysts or masses. Bowel: Moderate increased stool throughout the colon. Negative for small or large-bowel obstruction. Appendix: The appendix is not identified. There is no inflammatory process identified in the right lower quadrant to suggest appendicitis. Suspect previous appendectomy. Vasculature: Moderate atherosclerotic vascular calcifications of the abdominal aorta and its branches. Peritoneum / Retroperitoneum: Several surgical clips adjacent to the aorta and IVC. Extending of the pelvis. Likely lymph node dissection. Otherwise negative. PELVIS Lymph nodes: Negative for inguinal or iliac adenopathy. Bladder: Negative Reproductive Organs: Hysterectomy. Bones and Soft Tissues: Moderate degenerative changes of the mid and lower lumbar spine. Age appropriate appearance off the lumbar spine hips and pelvis. CT/CT Abd/Pelvis W/WO Contrast IMPRESSION: Severe right hydronephrosis with marked thinning of the right kidney. Overall favor sequela of chronic right ureteropelvic junction obstruction. No definitive renal mass or lesion Constipation. Benign left adrenal adenoma. Reading Location: [place] [address]
== END | disposition home or self-care (01) ==
LOC: CT 15:57
PROVIDERS: PCP Family Medicine; Referring Provider Specialist; Visit Provider Specialist
DX: M17.12 Unilateral primary osteoarthritis, left knee (principal); M21.162 Varus deformity, not elsewhere classified, left knee; R93.89 Abnormal findings on diagnostic imaging of other specified body structures
CPT/HCPCS: 73700; 74178; Q9967

== ENCOUNTER 2025-10-20 15:31 | Emergency (ER) | payer MEDICARE, SELFPAY ==
[2025-10-20 15:31] VITALS: BP 171/95; PULSE 73; RESP 16; TEMP 36.4; O2SAT 97; BMI 28.7
--- NOTE | 2025-10-20 16:53 | EDS_ITS ---
HPI HPI - GI History of Present Illness Chief Complaint: Constipation Narrative Narrative: Patient is a 75-year-old female presenting to the emergency department for constipation. Patient had surgery on her left knee about 2 months ago and was on narcotics for about 2 weeks but states she has not been on them for 6 weeks. She states that Friday she felt nauseous and had 1 episode of emesis as well as diarrhea. She states later in the day she then had another bowel movement that she reports was hard and small. She reports that she eats about 2 prunes daily between meals. States that today she took 2 stool softeners around 1 PM and then called the nursing triage line who told her to come to the emergency department. She thinks she did pass gas today but is not sure. Endorses lower abdominal discomfort. Has a past surgical history of cholecystectomy, appendectomy and hysterectomy. She denies any nausea or vomiting since Friday. Denies any dysuria or hematuria. Denies any fevers or chills. [facility] Medical History Urge incontinence Nocturia UPJ (ureteropelvic junction) obstruction Nonspecific abnormal finding on imaging of genitourinary organs Home Medications ?Medication ?Instructions ?Recorded ?Last Taken ?Type allopurinol 300 mg tablet 300 mg PO QDAY 07/22/25 Unkn own History azelaic acid 15 % topical gel topical QD-BID 07/22/25 Unknown History calcium-vit D3-ferrous fumarate tab PO 07/22/25 Unknow n History 600 mg-125 unit-18 mg tablet famotidine 40 mg tablet 40 mg PO BID PRN 07/22/25 Un known History hydrocortisone 2.5 % topical cream applic topical QDAY PRN 07/22/25 Unknown History ketoconazole 2 % shampoo topical 07/22/25 Unknown His tory lisinopril 20 mg tablet 20 mg PO QDAY 07/22/25 Unkno wn History multivitamin 1 tab PO QAM 07/22/25 Unknow n History omega-3 fatty acids 1,000 mg 1,000 mg PO BID 07/22/25 Unknown History capsule zinc gluconate 30 mg tablet 30 mg PO ONCE 07/22/25 Unk nown History Allergy/AdvReac Type Severity Reaction Status Date / Time metronidazole (From Flagyl) Allergy unknown Verified 10/20/25 15:35 Social History Smoking Status: Never smoker ROS ROS ED ROS Narrative see HPI EXAM Physical Exam Narrative Exam Narrative: Vital signs: Reviewed General: Alert and oriented x 3. No acute distress. Well-appearing, nontoxic HEENT: Head is normocephalic and atraumatic, sinuses nontender, pupils equal round and reactive. Nares are patent. Oropharynx and throat exams normal. Neck: Supple without lymphadenopathy nontender Cardiovascular: Regular rate and rhythm, no murmurs. No rubs or gallops. Normal S1 and S2 Respiratory: Clear to auscultation bilaterally. No wheezes, rales, rhonchi Abdominal: Soft and mildly tender to palpation in the suprapubic and left lower quadrants. Normal bowel sounds. No guarding or rebound. Nonsurgical abdomen Extremities: No tenderness. No bruising. Normal range of motion. Normal sensation. Skin: No rash or redness. The rest of the physical exam is unremarkable Const Vital Signs: 10/20/25 15:31 10/20/25 19:31 10/20/25 21:11 Temperature 97.5 F L 97.8 F Temperature Source Temporal Pulse Rate 73 84 80 Respiratory Rate 16 18 14 Blood Pressure 171/95 H 168/90 H 158/90 H Blood Pressure Mean 120 116 112 Pulse Ox 97 98 99 Oxygen Delivery Method Room Air Room Air MDM MDM MDM Narrative Medical decision making narrative: Patient is a 75-year-old female presenting to the emergency department for con stipation. Last bowel movement was Friday. Vitals are stable. Patient resting bed comfortably no acute distress. Differential includes but is not limited to: Constipation, impaction, bowel obstruction Labs and CT imaging ordered. CBC with no leukocytosis and a normal hemoglobin. CMP with no significant abnormalities. Urinalysis no evidence of urinary tract infection. CT shows severe right hydronephrosis with marked cortical thinning and prominence of the right renal pelvis and proximal ureter, unchanged from the prior study. Findings are most consistent with chronic obstruction. Dense colonic stool burden consistent with constipation. No CT evidence of small bowel obstruction. Unchanged left adrenal nodule compatible with a benign adenoma. No acute intra-abdominal or pelvic inflammatory process. Given the significant constipation and patient's endorsement pain, offered an enema. Fleet enema was done by nursing staff she only had a small amount of output and reported feeling like there was something in her rectum. I did offer her possible disimpaction which patient was agreeable with. Small amount of stool was removed with disimpaction. Patient then had a significant bowel movement. Reported improvement in her symptoms. Discussed bowel regimen for home including twice a day MiraLAX and Colace. Patient discharged from the Emergency Department. I do not feel that the patient's evaluation reveals any acute reason for admission at this time. I instructed them to either follow-up with their primary care physician or promptly return to the Emergency Department for reevaluation should symptoms worsen or new symptoms develop. I explained what symptoms would indicate the need to return to the emergency department. Shared decision making was used. The patient voiced understanding of the treatment plan and is agreeable with it. Clinical impression Constipation Rectal impaction History & Record Review Discussion w/independent historian: Patient and Significant other Lab Data Attestation: I reviewed the patient's lab results. Labs: Laboratory Results - last 24 hr 10/20/25 16:58 WBC 8.7 RBC 4.44 Hgb 13.5 Hct 39.4 MCV 88.7 MCH 30.4 MCHC 34.3 RDW Std Deviation 44.9 H RDW Coeff of Ulices 13.9 Plt Count 276 MPV 10.8 Immature Gran % (Auto) 0.500 Neut % (Auto) 68.0 Lymph % (Auto) 23.9 [place] % (Auto) 6.4 Eos % (Auto) 0.9 Baso % (Auto) 0.3 Absolute Neuts (auto) 5.9 Absolute Lymphs (auto) 2.08 Nucleated RBC % 0 Sodium 134 Potassium 4.6 Chloride 99 Carbon Dioxide 22.5 Anion Gap 13 BUN 14 Creatinine 0.74 Estim Creat Clear Calc 58.39 Est GFR (MDRD) Non-Af 84 BUN/Creatinine Ratio 18.9 Glucose 100 H Calcium 10.9 Total Bilirubin 0.40 AST 22 ALT 18 Alkaline Phosphatase 83 Total Protein 7.6 Albumin 4.6 Globulin 3.1 Albumin/Globulin Ratio 1.5 Urine Color Straw Urine Clarity Clear Urine pH 6.0 Ur Specific [place] 1.010 Urine Protein Negative Urine Glucose (UA) Normal Urine Ketones Negative Urine Occult Blood Negative Urine Nitrite Negative Urine Bilirubin Negative Urine Urobilinogen Normal Ur Leukocyte Esterase Negative Urine RBC 0-5 SEEN Urine WBC 0-5 SEEN Ur Squamous Epith Cells 0-5 SEEN Urine Bacteria 0 SEEN Urine Mucus 0 SEEN Radiography Diagnostic Testing: Clinical Impression(s) from Imaging Studies Abdomen/Pelvis CT 10/20/25 17:02 IMPRESSION: Severe right hydronephrosis with marked cortical thinning and prominence of the right renal pelvis and proximal ureter, unchanged from the prior study. Findings are most consistent with chronic obstruction. Dense colonic stool burden consistent with constipation. No CT evidence of small bowel obstruction. Unchanged left adrenal nodule compatible with a benign adenoma. No acute intra-abdominal or pelvic inflammatory process. [facility] Dis[facility] Triage Chief Complaint: Constipation ED Provider: Luisa Aldridge Dx/Rx/DC Orders Clinical Impression: Constipation Instructions: Eating a High-Fiber Diet, ED Constipation (Adult), ED Fecal Impaction, Treated Prescriptions: No Action famotidine 40 mg tablet 40 mg PO BID PRN ketoconazole 2 % shampoo topical azelaic acid 15 % gel topical QD-BID lisinopril 20 mg tablet 20 mg PO QDAY allopurinol 300 mg tablet 300 mg PO QDAY [id number] fumarate 600-125-18 mg-unit-mg tablet PO hydrocortisone 2.5 % cream topical QDAY PRN multivitamin Tablet 1 tab PO QAM omega-3 fatty acids 1,000 mg capsule 1,000 mg PO BID zinc gluconate 30 mg tablet 30 mg PO ONCE Primary Care Provider: Nathan Davila Referrals: Nathan Davila MD [Primary Care Provider, Family Practice] - As soon as possible Activity Restrictions/Additional Instructions: Take 1 capful of MiraLAX in the morning and at night with your Dulcolax. This should help you to have more bowel movements at home. Try to eat lots of fiber rich foods. Your evaluation in the Emergency Department did not reveal any acute reason for admission. However, I want to emphasize that you may be early in the course of a disease process or illness even if it is not present. For this reason you should follow-up within 24 hours for reevaluation with either your primary care physician or if necessary back here in the Emergency Department. You should return to the Emergency Department immediately if your symptoms worsen or new symptoms develop. Print Language: Urdu Disposition Disposition: Home, Self Care Discharge Date/Time: 10/20/25 21:24
--- NOTE | 2025-10-20 17:02 | CT_ITS ---
PROCEDURE: ABDOMEN/PELVIS W IV CONT ONLY 10/20/2025 REASON FOR EXAM: CONSTIPATION SINCE FRIDAY, RULE OUT SBO TECHNIQUE: Procedure Code: [id number] Modality: CT Procedure: ABDOMEN/PELVIS W IV CONT ONLY Coronal and Sagittal reconstruction series were provided. CONTRAST: Isovue-300 VOLUME: 99 mL One or more dose reduction techniques were used (e.g., Automated exposure control, adjustment of the mA and/or kV according to patient size, use of iterative reconstruction technique. RADIATION DOSE SUMMARY: CTDlvol: 9+ 15 mGy DLP: 742 mGycm COMPARISON: 08/05/2025. FINDINGS: Peripheral soft tissues are unremarkable. Degenerative changes of the spine. Grade 1 anterolisthesis of L4 on L5. Mild atherosclerosis of a normal caliber abdominal aorta. No suspicious lymphadenopathy. The liver is unremarkable. Surgically absent gallbladder. Unchanged left adrenal nodule likely representing an adenoma. Marked thinning of the right renal cortex with severe right hydronephrosis with a prominent right renal pelvis and proximal right ureter, similar to the prior CT. The left kidney is unremarkable. The urinary bladder is unremarkable. Normal caliber large and small bowel without surrounding inflammatory changes. Dense colonic stool suspicious for constipation. CT/Abdomen/Pelvis W IV Cont ONLY IMPRESSION: Severe right hydronephrosis with marked cortical thinning and prominence of the right renal pelvis and proximal ureter, unchanged from the prior study. Findings are most consistent with chronic obstruction. Dense colonic stool burden consistent with constipation. No CT evidence of smal l bowel obstruction. Unchanged left adrenal nodule compatible with a benign adenoma. No acute intra-abdominal or pelvic inflammatory process. Reading [facility]
[2025-10-20 17:06] LABS: Mucous, Urine 0 SEEN /hpf (<or=2+)
[2025-10-20 17:11] LABS: Hematocrit 39.4 % (37-47); Hemoglobin 13.5 g/dL (12.0-15.0); Immature Granulocytes Count 0.040 X10^3/uL (0.0-0.0); Mean Corp Hgb Conc 34.3 g/dL (32-36); Mean Corpuscular Volume 88.7 fL (81-99); Mean Platelet Vol. 10.8 fl (6.2-12.0); NRBC Flagged by Analyzer 0 % (0-5); Platelet Count 276 K/mm3 (150-450); RBC Distribution Width CV 13.9 % (11.6-14.6); RBC Distribution Width SD 44.9 fl (35.1-43.9); Red Blood Count 4.44 M/mm3 (4.2-5.4); White Blood Count 8.7 K/mm3 (4.4-11.0)
[2025-10-20 18:09] LABS: Color, Urine Straw (Yellow); Glucose, Dipstick Normal (Normal); Ketone-Dipstick Negative (Negative); Leukocyte Esterase-Dipstick Negative /ul (Negative); Nitrite-Dipstick Negative (Negative); Occult Blood-Urine Negative /ul (Negative); Protein-Dipstick Negative (Negative); Specific Gravity, Urine 1.010 (1.002-1.030); Urine Bilirubin Dipstick Negative (Negative)
[2025-10-20 18:12] LABS: AST(SGOT) 22 U/L (<=31); Alanine Aminotransfer ALT/SGPT 18 U/L (<=34); Albumin, Serum 4.6 g/dL (3.4-4.8); Alkaline Phosphatase 83 U/L (35-104); Anion Gap 13 (5-15); BUN 14 mg/dL (4-19); BUN/Creat Ratio 18.9 RATIO (10-20); Calcium,Total 10.9 mg/dL (7.6-11.0); Carbon Dioxide 22.5 mmol/L (21.0-32.0); Chloride 99 mmol/L (98-108); Estimated Creatinine Clearance 58.39 ml/min (50-250); Globulin 3.1 g/dL (2.2-4.2); Glucose 100 mg/dL (70-99); Potassium 4.6 mmol/L (3.3-5.1)
[2025-10-20 19:05] LABS: Red Blood Cells-Urine 0-5 SEEN /hpf (0-5); Squamous Epithelial Cells - UA 0-5 SEEN /hpf (5-10)
[2025-10-20 19:31] VITALS: BP 168/90; PULSE 84; RESP 18; O2SAT 98
[2025-10-20 21:11] VITALS: BP 158/90; PULSE 80; RESP 14; TEMP 36.6; O2SAT 99
== END 2025-10-20 21:24 | disposition home or self-care (01) ==
PROVIDERS: Emergency Provider Student in an Organized Health Care Education/Training Program; PCP Family Medicine; Visit Provider Student in an Organized Health Care Education/Training Program
DX: K56.41 Fecal impaction (principal)
CPT/HCPCS: 74177; 80053; 81001; 85025; 99283; Q9967; A4216